=== PATIENT | female | born 1940 | race Caucasian/White ===

== ENCOUNTER 2017-01-01 08:41 | Outpatient (RCR) | payer MEDICARE, BC ==
[2016-10-17 13:10] LABS: BASOPHILS % (AUTO) 0 % (0-10); EOSINOPHILS % (AUTO) 0 % (0-10); LYMPHOCYTES # (AUTO) 2.2 X 10^3 (1.0-4.0); LYMPHOCYTES % (AUTO) 31 % (12-44); MEAN CORPUSCULAR HEMOGLOBIN 25 PG (25-34); MEAN CORPUSCULAR HGB CONC 31 G/DL (32-36); MEAN CORPUSCULAR VOLUME 81 FL (80-99); MEAN PLATELET VOLUME 11.8 FL (7.4-10.4); MONOCYTES # (AUTO) 2.2 X 10^3 (0.0-1.0); MONOCYTES % (AUTO) 31 % (0-12); NEUTROPHILS # (AUTO) 2.7 X 10^3 (1.8-7.8); NEUTROPHILS % (AUTO) 38 % (42-75); PLATELET COUNT 71 10^3/uL (130-400); RED CELL DISTRIBUTION WIDTH 16.3 % (10.0-14.5); WHITE BLOOD COUNT 7.2 10^3/uL (4.3-11.0)
[2016-10-17 13:40] LABS: ALBUMIN 4.2 G/DL (3.2-4.5); BILIRUBIN,TOTAL 0.4 MG/DL (0.1-1.0); CALCIUM 9.2 MG/DL (8.5-10.1); CREATININE SERUM 1.16 MG/DL (0.60-1.30); TOTAL PROTEIN 7.6 G/DL (6.4-8.2)
[2016-11-28 12:11] LABS: BASOPHILS % (AUTO) 0 % (0-10); EOSINOPHILS % (AUTO) 0 % (0-10); LYMPHOCYTES # (AUTO) 2.3 X 10^3 (1.0-4.0); LYMPHOCYTES % (AUTO) 29 % (12-44); MEAN CORPUSCULAR HEMOGLOBIN 25 PG (25-34); MEAN CORPUSCULAR HGB CONC 31 G/DL (32-36); MEAN CORPUSCULAR VOLUME 80 FL (80-99); MEAN PLATELET VOLUME 12.4 FL (7.4-10.4); MONOCYTES # (AUTO) 3.1 X 10^3 (0.0-1.0); MONOCYTES % (AUTO) 38 % (0-12); NEUTROPHILS # (AUTO) 2.7 X 10^3 (1.8-7.8); NEUTROPHILS % (AUTO) 33 % (42-75); PLATELET COUNT 98 10^3/uL (130-400); RED BLOOD COUNT 3.75 10^6/uL (4.35-5.85); RED CELL DISTRIBUTION WIDTH 17.2 % (10.0-14.5)
[2016-11-28 12:43] LABS: ALBUMIN 4.2 G/DL (3.2-4.5); BILIRUBIN,TOTAL 0.5 MG/DL (0.1-1.0); CALCIUM 9.5 MG/DL (8.5-10.1); CREATININE SERUM 1.13 MG/DL (0.60-1.30); POTASSIUM 5.1 MMOL/L (3.6-5.0); TOTAL PROTEIN 7.9 G/DL (6.4-8.2)
[2017-01-01 09:00] LABS: BASOPHILS % (AUTO) 0 % (0-10); EOSINOPHILS % (AUTO) 0 % (0-10); LYMPHOCYTES % (AUTO) 27 % (12-44); MEAN CORPUSCULAR HEMOGLOBIN 25 PG (25-34); MEAN CORPUSCULAR HGB CONC 31 G/DL (32-36); MEAN CORPUSCULAR VOLUME 80 FL (80-99); MEAN PLATELET VOLUME 11.9 FL (7.4-10.4); MONOCYTES % (AUTO) 40 % (0-12); NEUTROPHILS # (AUTO) 2.5 X 10^3 (1.8-7.8); NEUTROPHILS % (AUTO) 33 % (42-75); PLATELET COUNT 84 10^3/uL (130-400); RED BLOOD COUNT 3.61 10^6/uL (4.35-5.85); RED CELL DISTRIBUTION WIDTH 16.6 % (10.0-14.5); WHITE BLOOD COUNT 7.6 10^3/uL (4.3-11.0)
[2017-01-01 09:27] LABS: BILIRUBIN,TOTAL 0.4 MG/DL (0.1-1.0); CALCIUM 9.2 MG/DL (8.5-10.1); CREATININE SERUM 1.27 MG/DL (0.60-1.30); POTASSIUM 4.4 MMOL/L (3.6-5.0); TOTAL PROTEIN 7.6 G/DL (6.4-8.2)
== END 2017-01-15 | disposition home or self-care (01) ==
LOC: ONC 08:41
PROVIDERS: ATTEND Internal Medicine Hematology & Oncology
DX: D46.9 Myelodysplastic syndrome, unspecified (principal); I10 Essential (primary) hypertension; E78.5 Hyperlipidemia, unspecified; Z79.899 Other long term (current) drug therapy
CPT/HCPCS: 36415; 80053; 83615; 85025; 99213

== ENCOUNTER 2017-05-01 13:50 | Outpatient (RCR) | payer MEDICARE, BC ==
[2017-02-12 11:27] LABS: BASOPHILS % (AUTO) 0 % (0-10); EOSINOPHILS % (AUTO) 0 % (0-10); LYMPHOCYTES % (AUTO) 27 % (12-44); MEAN CORPUSCULAR HEMOGLOBIN 25 PG (25-34); MEAN CORPUSCULAR HGB CONC 31 G/DL (32-36); MEAN CORPUSCULAR VOLUME 81 FL (80-99); MEAN PLATELET VOLUME 12.4 FL (7.4-10.4); MONOCYTES % (AUTO) 40 % (0-12); NEUTROPHILS # (AUTO) 2.4 X 10^3 (1.8-7.8); NEUTROPHILS % (AUTO) 33 % (42-75); PLATELET COUNT 86 10^3/uL (130-400); RED BLOOD COUNT 3.64 10^6/uL (4.35-5.85); RED CELL DISTRIBUTION WIDTH 17.7 % (10.0-14.5); WHITE BLOOD COUNT 7.4 10^3/uL (4.3-11.0)
[2017-02-12 12:20] LABS: CALCIUM 9.3 MG/DL (8.5-10.1); CREATININE SERUM 1.08 MG/DL (0.60-1.30); POTASSIUM 4.9 MMOL/L (3.6-5.0)
[2017-04-01 13:23] LABS: BASOPHILS % (AUTO) 0 % (0-10); EOSINOPHILS % (AUTO) 0 % (0-10); LYMPHOCYTES # (AUTO) 1.8 X 10^3 (1.0-4.0); LYMPHOCYTES % (AUTO) 27 % (12-44); MEAN CORPUSCULAR HEMOGLOBIN 25 PG (25-34); MEAN CORPUSCULAR HGB CONC 31 G/DL (32-36); MEAN CORPUSCULAR VOLUME 81 FL (80-99); MEAN PLATELET VOLUME 12.3 FL (7.4-10.4); MONOCYTES # (AUTO) 2.8 X 10^3 (0.0-1.0); MONOCYTES % (AUTO) 41 % (0-12); NEUTROPHILS # (AUTO) 2.2 X 10^3 (1.8-7.8); NEUTROPHILS % (AUTO) 32 % (42-75); PLATELET COUNT 100 10^3/uL (130-400); WHITE BLOOD COUNT 6.8 10^3/uL (4.3-11.0)
[2017-04-01 13:51] LABS: ALBUMIN 3.9 G/DL (3.2-4.5); BILIRUBIN,TOTAL 0.4 MG/DL (0.1-1.0); CALCIUM 9.3 MG/DL (8.5-10.1); CREATININE SERUM 1.38 MG/DL (0.60-1.30); TOTAL PROTEIN 8.1 G/DL (6.4-8.2)
[~2017-05-01 13:50] MED LIST: FERRIC CARBOXYMALTOSE (CANCER) 750 MG in NS (IVPB) CANCER CENTER 250 ML IV SCH
[2017-05-01 14:04] LABS: BASOPHILS % (AUTO) 0 % (0-10); EOSINOPHILS % (AUTO) 0 % (0-10); LYMPHOCYTES % (AUTO) 28 % (12-44); MEAN CORPUSCULAR HEMOGLOBIN 26 PG (25-34); MEAN CORPUSCULAR HGB CONC 30 G/DL (32-36); MEAN CORPUSCULAR VOLUME 85 FL (80-99); MONOCYTES # (AUTO) 3.3 X 10^3 (0.0-1.0); MONOCYTES % (AUTO) 45 % (0-12); NEUTROPHILS % (AUTO) 27 % (42-75); RED CELL DISTRIBUTION WIDTH 19.9 % (10.0-14.5); WHITE BLOOD COUNT 7.2 10^3/uL (4.3-11.0)
[2017-05-01 14:10] LABS: PLATELET COUNT 79 10^3/uL (130-400)
[2017-05-01 14:37] LABS: ALBUMIN 3.9 GM/DL (3.2-4.5); BILIRUBIN,TOTAL 0.3 MG/DL (0.1-1.0); CALCIUM 9.2 MG/DL (8.5-10.1); CREATININE SERUM 1.02 MG/DL (0.60-1.30); POTASSIUM 4.8 MMOL/L (3.6-5.0); TOTAL PROTEIN 7.9 GM/DL (6.4-8.2)
[2017-05-09] MEDS ORDERED: NF-ACI30T PO (08:50)
[2017-05-09] MEDS ORDERED: GABA-488 PO (08:50)
[2017-05-09] MEDS ORDERED: ALPR0.5T PO (08:50)
[2017-05-09] MEDS ORDERED: LEVO100T7 PO (08:50)
[2017-05-09] MEDS ORDERED: LEVO112T55 PO (08:50)
[2017-05-09] MEDS ORDERED: UBID100C44 PO (08:50)
[2017-05-09] MEDS ORDERED: CHOL2000 PO (08:50)
[2017-05-09] MEDS ORDERED: LOSA100T28 PO (08:50)
[2017-05-09] MEDS ORDERED: TRAM50TA2 PO (08:50)
[2017-05-09] MEDS ORDERED: ROSU10TA PO (08:50)
[2017-05-09] MEDS ORDERED: MIRA50TA PO (08:50)
[2017-05-09] MEDS ORDERED: METO-387 PO (08:50)
== END 2017-05-13 | disposition home or self-care (01) ==
LOC: ONC 13:50
PROVIDERS: ATTEND Internal Medicine Hematology & Oncology
DX: C93.10 Chronic myelomonocytic leukemia not having achieved remission (principal); D46.9 Myelodysplastic syndrome, unspecified; D50.9 Iron deficiency anemia, unspecified; K90.9 Intestinal malabsorption, unspecified; D61.818 Other pancytopenia; E11.22 Type 2 diabetes mellitus with diabetic chronic kidney disease; I12.9 Hypertensive chronic kidney disease with stage 1 through stage 4 chronic kidney disease, or unspecified chronic kidney disease; N18.3 Chronic kidney disease, stage 3 (moderate); E78.5 Hyperlipidemia, unspecified; M19.90 Unspecified osteoarthritis, unspecified site; Z79.899 Other long term (current) drug therapy
CPT/HCPCS: 36415; 80048; 80053; 82728; 83540; 83615; 85025; 96365; 99213

== ENCOUNTER → 2017-05-08 | Outpatient (CLI) | payer MEDICARE ==
[~2017-05-08] MED LIST changes: +ALPR0.5T PO; +CHOL2000 PO; -FERRIC CARBOXYMALTOSE (CANCER) 750 MG in NS (IVPB) CANCER CENTER 250 ML IV SCH; +GABA-488 PO; +IOHEXOL 350 MG/ML 100 ML (OMNIPAQUE 350) VIAL IV ONE; +LEVO100T7 PO; +LEVO112T55 PO; +LOSA100T28 PO; +METO-270 PO; +MIRA50TA PO; +NF-ACI30T PO; +NS 100 ML (IVPB) BAG IV ONE; +ROSU10TA PO; +TRAM50TA2 PO; +UBID100C44 PO
--- NOTE | 2017-05-08 15:25 | Diagnostic Imaging Report ---
PROCEDURE: CT head with and without contrast. TECHNIQUE: Multiple contiguous axial images were obtained through the brain before and after the administration of intravenous contrast. 80 mL of Omnipaque-350 is administered intravenously. INDICATION: Non arteritic ischemic optic neuropathy. Loss of vision in the right eye. FINDINGS: The unenhanced phase demonstrates no intracranial hemorrhage. There are periventricular and deep white matter hypodensities suggestive of chronic microvascular ischemic changes. There is no hydrocephalus. No extra-axial fluid collection is seen. Post contrast images demonstrate no enhancing mass. The vascular enhancement of the major central intracranial vessels is grossly unremarkable with atherosclerotic calcifications in the internal carotid artery within the cavernous segment seen on both sides. The orbits, the visualized portions of the paranasal sinuses and the calvarium appear grossly unremarkable. IMPRESSION: No intracranial hemorrhage or enhancing mass. White matter findings are suggestive of chronic microvascular ischemic changes. Report was called to Dr. Kristopher Rodríguez at 3:18 p.m., by lorenzo (for ZELDA). Dictated by: Dictated on workstation # [id number]
== END ==
LOC: RAD 13:28
PROVIDERS: ATTEND Optometrist
DX: H47.011 Ischemic optic neuropathy, right eye (principal)
CPT/HCPCS: 70470

== ENCOUNTER 2017-05-09 08:01 | Day surgery (SDC) | payer MEDICARE, BC ==
[~2017-05-09] VITALS: Ht 162.6 cm; Wt 86.2 kg
--- OUTSIDE RECORDS SUMMARY | 2017-05-09 08:07 | XMS REPORT | Clinical Summary ---
Author Author User, Kwarter Jarrett Calderon DO, ROLOP Address Unknown Phone Allergies, Adverse Reactions, Alerts Allergy Name Reaction Description Start Date Severity Status Provider BACTITRACIN Critical Active Patti Calderon RENETTA-1 Critical Active Pattijakob Calderon PRAVASTATIN Critical Active Pattijakob Calderon AMLODOPINE Critical Active Pattijakob Calderon ZITHROMAX Critical Active Pattijakob Calderon KEFLEX Critical Active Pattijakob Calderon SULFA Critical Active Pattijakob Calderon PENICILLIN Critical Active Patti Calderon Conditions or Problems Problem Name Problem Code Onset Date Status Entry Date Provider Comment Standard Description Annotate HYPOTHYROIDISM, PRIMARY 244.9 Active Patti Calderon Unspecified hypothyroidism HYPERTENSION 401.1 Active Patti Calderon Benign essential hypertension HYPERCHOLESTEROLEMIA 272.0 Active Patti Calderon Pure hypercholesterolemia 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 Patti Calderon Reflex sympathetic dystrophy of other specified site FIBROMYALGIA 729.1 Active Patti Calderon Myalgia and myositis, unspecified KNEE PAIN 719.46 Active Patti Calderon Pain in joint involving lower leg OSTEOARTHRITIS 715.90 Active Patti Calderon Osteoarthrosis, unspecified whether generalized or localized, involving unspecified site MYELODYSPLASTIC SYNDROME, UNSPECIFIED 238.75 Active Patti Calderon Myelodysplastic syndrome, unspecified Medication List Medication Instructions Start Date Stop Date Generic Name NDC Status Provider Patient Instruction COZAAR 50 MG TABS 1 PO DAILY [place] POTASSIUM 80193715795 Active Patti Calderon SYNTHROID 112 MCG TABS 1 po daily LEVOTHYROXINE SODIUM 01511986648 Active Patti Calderon FISH OIL 1000 MG CAPS 1 PO daily OMEGA-3 FATTY ACIDS 77124561119 Active Patti Calderon CRESTOR 10 MG TABS 1 po daily ROSUVASTATIN CALCIUM 37984728692 Active Patti Calderon GABAPENTIN 300 MG CAPS 1 PO TID PRN GABAPENTIN 75151407321 No Longer Active Patti Calderon LASIX 20 MG TABS 1 PO DAILY FUROSEMIDE 40667536827 No Longer Active Patti Calderon TRAMADOL HCL 50 MG TABS 1 tablet every 6 hrs as needed TRAMADOL HCL 73977513587 Active Patti Calderon XANAX 0.5 MG TABS 1/2 TO 1 PO TID PRN ALPRAZOLAM 10739476927 Active Patti Calderon HYDROCHLOROTHIAZIDE 12.5 MG CAPS 1 PO QD HYDROCHLOROTHIAZIDE 96947319132 Active Bridget Arciniega BISOPROLOL FUMARATE 10 MG TABS 1 PO DAILY BISOPROLOL FUMARATE 65042922690 Active Patti Calderon TOPROL XL 25 MG [id number] 1 PO DAILY METOPROLOL SUCCINATE 81185299131 Active Patti Calderon POTASSIUM CHLORIDE ER 10 MEQ CR-TABS 1 PO DAILY POTASSIUM CHLORIDE 06562689311 Active Patti Calderon PROZAC 20 MG CAPS 1 PO DAILY FLUOXETINE HCL 13584531328 Active Patti Calderon ACIPHEX 20 MG TBEC 1 PO DAILY RABEPRAZOLE SODIUM 40755648706 Active Patti Calderon Vital Signs Date Name Value Unit Range Description blood pressure, diastolic - 8462-4 70 mm[Hg] BP silveira blood pressure, systolic - 8480-6 125 mm[Hg] BP sys height E&M - 8302-2 56 [in_us] Bdy height pulse rate E&M - 8867-4 66 /min Heart rate respiratory rate E&M - 9279-1 14 /min Resp rate temperature E&M 98.6 [degF] Body temperature weight E&M - 3141-9 190 [lb_av] Weight Measured Diagnostic Results Date Name Value Unit Range Description Clinical Lists Update: CBC,CMP,FLP,TSH,Free T4,FERRITIN,MICROALBUMIN,HgA1c - Chemistry Estimated Glomerular Filtration Rate (calc) 51 mL/min/1.73m2 glucose, plasma fasting 132 mg/dL albumin, serum 4.3 g/dL alkaline phosphatase, serum 72 U/L urea nitrogen, blood 22 mg/dL calcium, serum 10.0 mg/dL chloride, serum 102 mmol/L cholesterol, serum 151 mg/dL carbon dioxide, venous blood 25 mmol/L very low density lipoproteins 14 mg/dL sodium, serum 137 mmol/L triglyceride, serum, fasting 69 mg/dL bilirubin, serum, total 0.7 mg/dL alanine aminotransferase (SGPT), serum 12 U/L aspartate aminotransferase (SGOT), serum 24 U/L protein, total, serum 8.3 g/dL potassium, serum 3.2 mmol/L LDL cholesterol, serum 251 mg/dL thyroid stimulating hormone, serum 0.15 u[iU]/mL hemoglobin A1C, blood, as % of total hemoglobin 6.4 % HDL cholesterol, serum 54 mg/dL thyroxine, serum, free 1.50 ng/dL ferritin, serum 37 ng/mL creatinine, serum 1.05 mg/dL Clinical Lists Update: CBC,CMP,FLP,TSH,Free T4,FERRITIN,MICROALBUMIN,HgA1c - Hematology hemoglobin, blood 11.0 g/dL platelet count 83 10*3/mm3 erythrocyte (RBC) count 3.96 10*6/mm3 leukocyte count, blood 7.1 10*3/mm3 mean corpuscular volume, RBC 84 fL red blood cell distribution width 13.6 % hematocrit, blood 33 % Clinical Lists Update: CBC,CMP,FLP,TSH,Free T4,FERRITIN,MICROALBUMIN,HgA1c - Urinalysis microalbumin, urine, semiquantitative 18.5 mg/dL
--- OUTSIDE RECORDS SUMMARY | 2017-05-09 08:07 | XMS REPORT | Clinical Summary ---
Author Author User, [employer] Jarrett Calderon DO, ROLOP Address Unknown Phone [...] Instructions Start Date Stop Date Generic Name ND Status Provider Patient Instruction OMEPRAZOLE 20 MG CPDR 1 PO daily OMEPRAZOLE 46103398924 Active Patti Calderon SYNTHROID 100 MCG TABS 1 PO DAILY ON FRIDAY AND Friday LEVOTHYROXINE SODIUM 67337758646 Active Rocio Courtney SYNTHROID 112 MCG TABS 1 PO DAILY ON FRIDAY, FRIDAY, FRIDAY, FRIDAY AND Friday LEVOTHYROXINE SODIUM 46668386959 Active Patti Calderon COZAAR 50 MG TABS 1 PO DAILY [place] POTASSIUM 55195026560 Active Patti Calderon FISH OIL 1000 MG CAPS 1 PO daily OMEGA-3 FATTY ACIDS 04007941363 Active Patti Calderon CRESTOR 10 MG TABS 1 po daily ROSUVASTATIN CALCIUM 10713155798 Active Patti Calderon GABAPENTIN 300 MG CAPS 1 PO TID PRN GABAPENTIN 37352413784 No Longer Active Patti Calderon LASIX 20 MG TABS 1 PO DAILY FUROSEMIDE 78305063757 No Longer Active Patti Calderon TRAMADOL HCL 50 MG TABS 1 tablet every 6 hrs as needed TRAMADOL HCL 18583294957 Active Patti Calderon XANAX 0.5 MG TABS 1/2 TO 1 PO TID PRN ALPRAZOLAM 22673989058 Active Patti Calderon HYDROCHLOROTHIAZIDE 12.5 MG CAPS 1 PO QD HYDROCHLOROTHIAZIDE 00616923071 Active Bridget Arciniega BISOPROLOL FUMARATE 10 MG TABS 1 PO DAILY BISOPROLOL FUMARATE 92410223172 Active Patti Calderon TOPROL XL 25 MG [id number] 1 PO DAILY METOPROLOL SUCCINATE 99115643036 Active Patti Calderon POTASSIUM CHLORIDE ER 10 MEQ CR-TABS 1 PO DAILY POTASSIUM CHLORIDE 88033884384 Active Bridget Arciniega PROZAC 20 MG CAPS 1 PO DAILY FLUOXETINE HCL 18801606452 Active Bridget Arciniega ACIPHEX 20 MG TBEC 1 PO DAILY RABEPRAZOLE SODIUM 65407396470 No Longer Active Bridget Arciniega Vital Signs Date Name Value Unit Range [...] - Urinalysis microalbumin, urine, semiquantitative 18.5 mg/dL Procedures Code Procedure Name Date Entry Date Standard Description CPT-G0439 Medicare Annual Wellness Visit 20:35:50 CDT
--- OUTSIDE RECORDS SUMMARY | 2017-05-09 08:08 | XMS REPORT | Clinical Summary ---
Author Author User, [employer] Jarrett Calderon DO, ROLOP Address Unknown Phone Allergies, Adverse Reactions, Alerts Allergy Name Reaction Description Start Date Severity Status Provider BACTITRACIN Critical Active Patti Calderon RENETTA-1 Critical Active Pattijakob Calderon PRAVASTATIN Critical Active Pattijakob Calderon AMLODOPINE Critical Active Pattijakob Calderon ZITHROMAX Critical Active Pattijakob Calderon KEFLEX Critical Active Pattijakob Calderon SULFA Critical Active Pattijakbo Calderon PENICILLIN Critical Active Patti Calderon Conditions [...] Generic Name ND Status Provider Patient Instruction SYNTHROID 100 MCG TABS 1 PO DAILY ON FRIDAY AND Friday LEVOTHYROXINE SODIUM 92975838773 Active Rocio Courtney SYNTHROID 112 MCG TABS 1 PO DAILY ON FRIDAY, FRIDAY, FRIDAY, FRIDAY AND Friday LEVOTHYROXINE SODIUM 94346815557 Active Patti Calderon COZAAR 50 MG TABS 1 PO DAILY [place]AN POTASSIUM 76221415309 Active Patti Calderon FISH OIL 1000 MG CAPS 1 PO daily OMEGA-3 FATTY ACIDS 01713432317 Active Patti Calderon CRESTOR 10 MG TABS 1 po daily ROSUVASTATIN CALCIUM 05309090517 Active Patti Calderon GABAPENTIN 300 MG CAPS 1 PO TID PRN GABAPENTIN 81164963853 No Longer Active Patti Calderon LASIX 20 MG TABS 1 PO DAILY FUROSEMIDE 87488696449 No Longer Active Patti Calderon TRAMADOL HCL 50 MG TABS 1 tablet every 6 hrs as needed TRAMADOL HCL 27640772085 Active Patti Calderon XANAX 0.5 MG TABS 1/2 TO 1 PO TID PRN ALPRAZOLAM 02372006670 Active Patti Calderon HYDROCHLOROTHIAZIDE 12.5 MG CAPS 1 PO QD HYDROCHLOROTHIAZIDE 76810885378 Active Bridget Arciniega BISOPROLOL FUMARATE 10 MG TABS 1 PO DAILY BISOPROLOL FUMARATE 53116210917 Active Patti Calderon TOPROL XL 25 MG [id number] 1 PO DAILY METOPROLOL SUCCINATE 74135395585 Active Patti Calderon POTASSIUM CHLORIDE ER 10 MEQ CR-TABS 1 PO DAILY POTASSIUM CHLORIDE 54359084246 Active Patti Calderon PROZAC 20 MG CAPS 1 PO DAILY FLUOXETINE HCL 93693939266 Active Patti Calderon ACIPHEX 20 MG TBEC 1 PO DAILY RABEPRAZOLE SODIUM 72897571646 Active Patti Kristin Calderon Vital Signs Date Name Value Unit [...]
--- OUTSIDE RECORDS SUMMARY | 2017-05-09 08:08 | XMS REPORT | Clinical Summary ---
Author Author User, Ludia Jarrett Calderon DO, ROLOP Address Unknown Phone Allergies, Adverse Reactions, Alerts Allergy Name Reaction Description Start Date Severity Status Provider BACTITRACIN Critical Active Patti Calderon RENETTA-1 Critical Active Pattijakob Calderon PRAVASTATIN Critical Active Pattijakob Claderon AMLODOPINE Critical Active Pattijakob Calderon ZITHROMAX Critical [...] Generic Name NDC Status Provider Patient Instruction SYNTHROID 112 MCG TABS 1 po daily LEVOTHYROXINE SODIUM 30723954224 Active Patti Calderon FISH OIL 1000 MG CAPS 1 PO daily OMEGA-3 FATTY ACIDS 55321057287 Active Patti Calderon CRESTOR 10 MG TABS 1 po daily ROSUVASTATIN CALCIUM 58224815914 Active Patti Calderon GABAPENTIN 300 MG CAPS 1 PO TID PRN GABAPENTIN 27029101959 No Longer Active Patti Calderon LASIX 20 MG TABS 1 PO DAILY FUROSEMIDE 19278249483 No Longer Active Patti Calderon TRAMADOL HCL 50 MG TABS 1 tablet every 6 hrs as needed TRAMADOL HCL 02837124735 Active Patti Calderon XANAX 0.5 MG TABS 1/2 TO 1 PO TID PRN ALPRAZOLAM 34905007115 Active Patti Calderon HYDROCHLOROTHIAZIDE 12.5 MG CAPS 1 PO QD HYDROCHLOROTHIAZIDE 07934378630 Active Bridget Arciniega COZAAR 100 MG TABS 1 PO DAILY [place] POTASSIUM 67220973309 Active Bridget Arciniega BISOPROLOL FUMARATE 10 MG TABS 1 PO DAILY BISOPROLOL FUMARATE 08236688518 Active Patti Calderon TOPROL XL 25 MG [id number] 1 PO DAILY METOPROLOL SUCCINATE 43368841158 Active Patti Calderon POTASSIUM CHLORIDE ER 10 MEQ CR-TABS 1 PO DAILY POTASSIUM CHLORIDE 37929049592 Active Patti Calderon PROZAC 20 MG CAPS 1 PO DAILY FLUOXETINE HCL 51534455199 Active Patti Calderon ACIPHEX 20 MG TBEC 1 PO DAILY RABEPRAZOLE SODIUM 00173216422 Active Patti Calderon Vital Signs Date Name [...]
--- OUTSIDE RECORDS SUMMARY | 2017-05-09 08:09 | XMS REPORT | Continuity of Care Document ---
Author Author [facility] Organization [facility] Address Unknown Phone Unavailable Allergies Active Description Code Type Severity Reaction Onset Reported/Identified Relationship to Patient Clinical Status Yes No Known Drug Allergies [id number] Drug Allergy Unknown N/ A 04/10/2017 Medications Problems Date Dx Coded Attending Type Code Diagnosis Diagnosed By 05/30/2015 STEINER DO, DEONNA Ot V76.12 05/30/2015 STEINER DO, DEONNA Ot V76.12 06/14/2015 STEINER DO, DEONNA Ot V76.12 06/15/2015 STEINER DO, DEONNA Ot 238.75 06/15/2015 STEINER DO, DEONNA Ot 244.9 06/15/2015 STEINER DO, DEONNA Ot 272.0 06/15/2015 STEINER DO, DEONNA Ot 337.29 06/15/2015 STEINER DO, DEONNA Ot 401.1 06/15/2015 STEINER DO, DEONNA Ot 715.90 06/15/2015 STEINER DO, DEONNA Ot 729.1 06/15/2015 STEINER DO, DEONNA Ot 790.29 07/26/2015 OLY, BOBAN N Ot 238.75 MYELODYSPLASTIC SYNDROME, UNSPECIFIED 07/26/2015 OLY, BOBAN N Ot 244.9 HYPOTHYROIDISM NOS 07/26/2015 OLY, BOBAN N Ot 272.0 PURE HYPERCHOLESTEROLEM 07/26/2015 OLY, BOBAN N Ot 285.9 ANEMIA NOS 07/26/2015 OLY, BOBAN N Ot 287.5 THROMBOCYTOPENIA NOS 07/26/2015 OLY, BOBAN N Ot 354.0 CARPAL TUNNEL SYNDROME 07/26/2015 OLY, BOBAN N Ot 403.90 HYPTNSV CHR KID DIS, UNSPEC, W CHR KD ST 07/26/2015 OLY, BOBAN N Ot 585.3 CHRONIC KIDNEY DISEASE, STAGE III (MODER 07/26/2015 OLY, BOBAN N Ot 715.96 OSTEOARTHROS NOS-L/LEG 07/26/2015 ELDER ALDRIDGE N Ot V10.42 HX-UTERUS MALIGNANCY NEC 07/26/2015 ELDER ALDRIDGE N Ot V58.69 OTH MED,LT,CURRENT USE 07/26/2015 ELDER ALDRIDGE N Ot V88.01 ACQUIRED ABSENCE OF BOTH CERVIX AND UTER 09/13/2015 STEINER DO, DEONNA Ot V76.12 09/13/2015 STEINER DO, DEONNA Ot 238.75 09/13/2015 STEINER DO, DEONNA Ot 244.9 09/13/2015 STEINER DO, DEONNA Ot 272.0 09/13/2015 STEINER DO, DEONNA Ot 337.29 09/13/2015 STEINER DO, DEONNA Ot 401.1 09/13/2015 STEINER DO, DEONNA Ot 715.90 09/13/2015 STEINER DO, DEONNA Ot 729.1 09/13/2015 STEINER DO, DEONNA Ot 790.29 09/13/2015 ELDER ALDRIDGE N Ot 238.75 09/13/2015 ELDER ALDRIDGE N Ot 244.9 09/13/2015 OLYELDER VILLAGRAN N Ot 272.0 09/13/2015 OLYELDER VILLAGRAN N Ot 285.9 09/13/2015 OLY, ELDER N Ot 287.5 09/13/2015 OLY, ELDER N Ot 354.0 09/13/2015 OLY, BOBUTLIO N Ot 403.90 09/13/2015 OLYELDER VILLAGRAN N Ot 585.3 09/13/2015 OLYELDER VILLAGRAN N Ot 715.96 09/13/2015 ELDER ALDRIDGE N Ot V10.42 09/13/2015 OLYELDER VILLAGRAN N Ot V58.69 09/13/2015 ELDER ALDRIDGE N Ot V88.01 10/04/2015 STEINER DO, DEONNA Ot E03.9 10/04/2015 STEINER DO, DEONNA Ot E78.0 10/04/2015 STEINER DO, DEONNA Ot Z00.00 10/26/2015 [place] HURST HAM SMOKER Ot D46.9 10/26/2015 [place] HURST HAM SMOKER Ot E78.5 10/26/2015 OK HURST HAM SMOKER Ot I10 10/26/2015 [place] HURST HAM SMOKER Ot Z79.899 10/26/2015 STEINER DO, DEONNA Ot E03.9 10/26/2015 STEINER DO, DEONNA Ot E78.0 10/26/2015 STEINER DO, DEONNA Ot E78.1 10/26/2015 STEINER DO, DEONNA Ot I10 10/26/2015 STEINER DO, DEONNA Ot Z00.00 12/28/2015 OLY, BOBAN N Ot 238.75 12/28/2015 OLY, BOBAN N Ot 244.9 12/28/2015 OLY, BOBAN N Ot 272.0 12/28/2015 OLY, BOBAN N Ot 285.9 12/28/2015 OLY, BOBAN N Ot 287.5 12/28/2015 OLY, BOBAN N Ot 354.0 12/28/2015 OLY, BOBAN N Ot 403.90 12/28/2015 OLY, BOBAN N Ot 585.3 12/28/2015 OLY, BOBAN N Ot 715.96 12/28/2015 OLY, BOBAN N Ot V10.42 12/28/2015 OLY, BOBAN N Ot V58.69 12/28/2015 OLY, BOBAN N Ot V88.01 01/05/2016 OLY, BOBAN N Ot 238.75 01/05/2016 OLY, BOBAN N Ot 244.9 01/05/2016 OLY, BOBAN N Ot 272.0 01/05/2016 OLY, BOBAN N Ot 285.9 01/05/2016 OLY, BOBAN N Ot 287.5 01/05/2016 OLY, BOBAN N Ot 354.0 01/05/2016 OLY, BOBAN N Ot 403.90 01/05/2016 OLY, BOBAN N Ot 585.3 01/05/2016 OLY, BOBAN N Ot 715.96 01/05/2016 OLY, BOBAN N Ot V10.42 01/05/2016 OLY, BOBAN N Ot V58.69 01/05/2016 OLY, BOBAN N Ot V88.01 01/16/2016 STEINER DO, DEONNA Ot E03.9 01/16/2016 STEINER DO, DEONNA Ot E78.0 01/16/2016 STEINER DO, DEONNA Ot E78.1 01/16/2016 STEINER DO, DEONNA Ot Z00.00 02/06/2016 STEINER DO, DEONNA Ot E03.9 02/06/2016 STEINER DO, DEONNA Ot E78.0 02/06/2016 STEINER DO, DEONNA Ot E78.1 02/06/2016 STEINER DO, DEONNA Ot Z00.00 02/16/2016 ELDER ALDRIDGE N Ot D46.9 MYELODYSPLASTIC SYNDROME, UNSPECIFIED 02/16/2016 OLY, BOBTULIO N Ot E78.5 HYPERLIPIDEMIA, UNSPECIFIED 02/16/2016 OLY, BOBAN N Ot I10 ESSENTIAL (PRIMARY) HYPERTENSION 02/16/2016 OLY, BOBTULIO N Ot Z79.899 OTHER FIBER DESIGN ENGINEER (CURRENT) DRUG THERAPY 04/03/2016 ELDER ALDRIDGE N Ot D46.9 MYELODYSPLASTIC SYNDROME, UNSPECIFIED 04/03/2016 OLY, BOBTULIO N Ot E78.5 HYPERLIPIDEMIA, UNSPECIFIED 04/03/2016 OLY, BOBTULIO N Ot I10 ESSENTIAL (PRIMARY) HYPERTENSION 04/03/2016 ELDER ALDRIDGE N Ot Z79.899 OTHER FIBER DESIGN ENGINEER (CURRENT) DRUG THERAPY 04/12/2016 OK HURST HAM SMOKER Ot D46.9 MYELODYSPLASTIC SYNDROME, UNSPECIFIED 04/12/2016 OK HURST HAM SMOKER Ot E78.5 HYPERLIPIDEMIA, UNSPECIFIED 04/12/2016 OK HURST HAM SMOKER Ot I10 ESSENTIAL (PRIMARY) HYPERTENSION 04/12/2016 OK HURST HAM SMOKER Ot Z79.899 OTHER LONG-TERM (CURRENT) DRUG THERAPY 04/12/2016 OK HURST HAM SMOKER Ot D46.9 MYELODYSPLASTIC SYNDROME, UNSPECIFIED 04/12/2016 OK HURST HAM SMOKER Ot E78.5 HYPERLIPIDEMIA, UNSPECIFIED 04/12/2016 OK HURST HAM SMOKER Ot I10 ESSENTIAL (PRIMARY) HYPERTENSION 04/12/2016 OK HURST HAM SMOKER Ot Z79.899 OTHER FIBER DESIGN ENGINEER (CURRENT) DRUG THERAPY 05/01/2016 OK HURST HAM SMOKER Ot D46.9 MYELODYSPLASTIC SYNDROME, UNSPECIFIED 05/01/2016 OK HURST HAM SMOKER Ot E78.5 HYPERLIPIDEMIA, UNSPECIFIED 05/01/2016 OK HURST HAM SMOKER Ot I10 ESSENTIAL (PRIMARY) HYPERTENSION 05/01/2016 OK HURST HAM SMOKER Ot Z79.899 OTHER LONG-TERM (CURRENT) DRUG THERAPY 06/18/2016 DEONNA STEINER DO Ot Z12.31 ENCNTR SCREEN MAMMOGRAM FOR MALIGNANT NE 06/19/2016 MATA STEINER DOI Ot Z12.31 ENCNTR SCREEN MAMMOGRAM FOR MALIGNANT NE 06/27/2016 DEONNA STEINER DO Ot V76.12 OTH SCREEN MAMMO-MALIGN NEOPLASM OF LILI 06/27/2016 MATA STEINER DOI Ot 238.75 MYELODYSPLASTIC SYNDROME, UNSPECIFIED 06/27/2016 MATA STEINER DOI Ot 244.9 HYPOTHYROIDISM NOS 06/27/2016 MATA STEINER DOI Ot 272.0 PURE HYPERCHOLESTEROLEM 06/27/2016 OBDULIA RODRIGUEZ DEONNA Ot 337.29 REFLEX SYMPATHETIC DYSTROPHY, SITE NEC 06/27/2016 MATA STEINER DOI Ot 401.1 BENIGN HYPERTENSION 06/27/2016 MATA STEINER DOI Ot 715.90 OSTEOARTHROS NOS-UNSPEC 06/27/2016 OBDULIA RODRIGUEZ DEONNA Ot 729.1 MYALGIA AND MYOSITIS NOS 06/27/2016 MATA STEINER DOI Ot 790.29 OTHER ABNORMAL GLUCOSE 06/27/2016 MATA STEINER DOI Ot E03.9 HYPOTHYROIDISM, UNSPECIFIED 06/27/2016 MATA STEINER DOI Ot E78.0 PURE HYPERCHOLESTEROLEMIA 06/27/2016 MATA STEINER DOI Ot Z00.00 ENCNTR FOR GENERAL ADULT MEDICAL EXAM W/ 06/27/2016 OK HURST HAM SMOKER Ot D46.9 MYELODYSPLASTIC SYNDROME, UNSPECIFIED 06/27/2016 OK HURST HAM SMOKER Ot E78.5 HYPERLIPIDEMIA, UNSPECIFIED 06/27/2016 OK HURST HAM SMOKER Ot I10 ESSENTIAL (PRIMARY) HYPERTENSION 06/27/2016 OK HURST HAM SMOKER Ot Z79.899 OTHER LONG-TERM (CURRENT) DRUG THERAPY 06/27/2016 MATA STEINER DOI Ot E03.9 HYPOTHYROIDISM, UNSPECIFIED 06/27/2016 MATA STEINER DOI Ot E78.0 PURE HYPERCHOLESTEROLEMIA 06/27/2016 MATA STEINER DOI Ot E78.1 PURE HYPERGLYCERIDEMIA 06/27/2016 STEINER DO, DEONNA Ot I10 ESSENTIAL (PRIMARY) HYPERTENSION 06/27/2016 STEINER DO, DEONNA Ot Z00.00 ENCNTR FOR GENERAL ADULT MEDICAL EXAM W06/27/2016 STEINER DO DEONNA Ot E03.9 HYPOTHYROIDISM, UNSPECIFIED 06/27/2016 STEINER DO, DEONNA Ot E78.0 PURE HYPERCHOLESTEROLEMIA 06/27/2016 STEINER DO, DEONNA Ot E78.1 PURE HYPERGLYCERIDEMIA 06/27/2016 STEINER DO, DEONNA Ot Z00.00 ENCNTR FOR GENERAL ADULT MEDICAL EXAM W06/27/2016 OK HURST HAM SMOKER Ot D46.9 MYELODYSPLASTIC SYNDROME, UNSPECIFIED 06/27/2016 OK HURST HAM SMOKER Ot E78.5 HYPERLIPIDEMIA, UNSPECIFIED 06/27/2016 OK HURST HAM SMOKER Ot I10 ESSENTIAL (PRIMARY) HYPERTENSION 06/27/2016 OK HURST HAM SMOKER Ot Z79.899 OTHER FIBER DESIGN ENGINEER (CURRENT) DRUG THERAPY 06/27/2016 OLY BOBAN N Ot D46.9 MYELODYSPLASTIC SYNDROME, UNSPECIFIED 06/27/2016 OLY, BOBAN N Ot E78.5 HYPERLIPIDEMIA, UNSPECIFIED 06/27/2016 OLY, BOBAN N Ot I10 ESSENTIAL (PRIMARY) HYPERTENSION 06/27/2016 OLY, BOBAN N Ot Z79.899 OTHER FIBER DESIGN ENGINEER (CURRENT) DRUG THERAPY 06/27/2016 OBDULIA RODRIGUEZ DEONNA Ot Z12.31 ENCNTR SCREEN MAMMOGRAM FOR MALIGNANT NE 07/10/2016 OLY BOBAN N Ot D46.9 MYELODYSPLASTIC SYNDROME, UNSPECIFIED 07/10/2016 OLY, BOBAN N Ot E78.5 HYPERLIPIDEMIA, UNSPECIFIED 07/10/2016 OLY, BOBAN N Ot I10 ESSENTIAL (PRIMARY) HYPERTENSION 07/10/2016 OLY, BOBAN N Ot Z79.899 OTHER LONG-TERM (CURRENT) DRUG THERAPY 07/12/2016 STEINER DO DEONNA Ot Z12.31 ENCNTR SCREEN MAMMOGRAM FOR MALIGNANT NE 07/18/2016 OLY, BOBAN N Ot D46.9 MYELODYSPLASTIC SYNDROME, UNSPECIFIED 07/18/2016 OLY, BOBAN N Ot E78.5 HYPERLIPIDEMIA, UNSPECIFIED 07/18/2016 OLY, BOBAN N Ot I10 ESSENTIAL (PRIMARY) HYPERTENSION 07/18/2016 OLY, BOBAN N Ot Z79.899 OTHER FIBER DESIGN ENGINEER (CURRENT) DRUG THERAPY 08/22/2016 OLY, BOBAN N Ot D46.9 MYELODYSPLASTIC SYNDROME, UNSPECIFIED 08/22/2016 OLY, BOBAN N Ot E78.5 HYPERLIPIDEMIA, UNSPECIFIED 08/22/2016 OLY, BOBAN N Ot I10 ESSENTIAL (PRIMARY) HYPERTENSION 08/22/2016 OLY, BOBAN N Ot Z79.899 OTHER LONG-TERM (CURRENT) DRUG THERAPY 10/15/2016 OLY, BOBAN N Ot D46.9 MYELODYSPLASTIC SYNDROME, UNSPECIFIED 10/15/2016 OLY, BOBAN N Ot E78.5 HYPERLIPIDEMIA, UNSPECIFIED 10/15/2016 OLY, BOBAN N Ot I10 ESSENTIAL (PRIMARY) HYPERTENSION 10/15/2016 OLY, BOBAN N Ot Z79.899 OTHER FIBER DESIGN ENGINEER (CURRENT) DRUG THERAPY 10/16/2016 OLY, BOBAN N Ot D46.9 MYELODYSPLASTIC SYNDROME, UNSPECIFIED 10/16/2016 OLY, BOBAN N Ot E78.5 HYPERLIPIDEMIA, UNSPECIFIED 10/16/2016 OLY, BOBAN N Ot I10 ESSENTIAL (PRIMARY) HYPERTENSION 10/16/2016 OLY, BOBAN N Ot Z79.899 OTHER LONG-TERM (CURRENT) DRUG THERAPY 10/18/2016 OLY, BOBAN N Ot D46.9 MYELODYSPLASTIC SYNDROME, UNSPECIFIED 10/18/2016 OLY, BOBAN N Ot E78.5 HYPERLIPIDEMIA, UNSPECIFIED 10/18/2016 OLY, BOBAN N Ot I10 ESSENTIAL (PRIMARY) HYPERTENSION 10/18/2016 OLY, BOBAN N Ot Z79.899 OTHER LONG-TERM (CURRENT) DRUG THERAPY 11/19/2016 OLY, BOBAN N Ot D46.9 MYELODYSPLASTIC SYNDROME, UNSPECIFIED 11/19/2016 OLY, BOBAN N Ot E78.5 HYPERLIPIDEMIA, UNSPECIFIED 11/19/2016 OLY, BOBAN N Ot I10 ESSENTIAL (PRIMARY) HYPERTENSION 11/19/2016 OLY, BOBAN N Ot Z79.899 OTHER LONG-TERM (CURRENT) DRUG THERAPY 01/15/2017 OLY, BOBAN N Ot D46.9 MYELODYSPLASTIC SYNDROME, UNSPECIFIED 01/15/2017 OLY, BOBAN N Ot E78.5 HYPERLIPIDEMIA, UNSPECIFIED 01/15/2017 OLY, BOBAN N Ot I10 ESSENTIAL (PRIMARY) HYPERTENSION 01/15/2017 OLY, BOBAN N Ot Z79.899 OTHER FIBER DESIGN ENGINEER (CURRENT) DRUG THERAPY 01/16/2017 OLY, BOBAN N Ot D46.9 MYELODYSPLASTIC SYNDROME, UNSPECIFIED 01/16/2017 OLY, BOBAN N Ot E78.5 HYPERLIPIDEMIA, UNSPECIFIED 01/16/2017 OLY, BOBAN N Ot I10 ESSENTIAL (PRIMARY) HYPERTENSION 01/16/2017 OLY, BOBAN N Ot Z79.899 OTHER FIBER DESIGN ENGINEER (CURRENT) DRUG THERAPY 02/13/2017 OLY, BOBAN N Ot D46.9 MYELODYSPLASTIC SYNDROME, UNSPECIFIED 02/13/2017 OLY, BOBAN N Ot E78.5 HYPERLIPIDEMIA, UNSPECIFIED 02/13/2017 OLY, BOBAN N Ot I10 ESSENTIAL (PRIMARY) HYPERTENSION 02/13/2017 OLY, BOBAN N Ot Z79.899 OTHER FIBER DESIGN ENGINEER (CURRENT) DRUG THERAPY 03/19/2017 OLY, BOBAN N Ot D46.9 MYELODYSPLASTIC SYNDROME, UNSPECIFIED 03/19/2017 OLY, BOBAN N Ot E78.5 HYPERLIPIDEMIA, UNSPECIFIED 03/19/2017 OLY, BOBAN N Ot I10 ESSENTIAL (PRIMARY) HYPERTENSION 03/19/2017 OLY, BOBAN N Ot Z79.899 OTHER LONG-TERM (CURRENT) DRUG THERAPY 05/02/2017 OLY, BOBAN N Ot D46.9 MYELODYSPLASTIC SYNDROME, UNSPECIFIED 05/02/2017 OLY, BOBAN N Ot E78.5 HYPERLIPIDEMIA, UNSPECIFIED 05/02/2017 OLY, BOBAN N Ot I10 ESSENTIAL (PRIMARY) HYPERTENSION 05/02/2017 OLY, BOBAN N Ot Z79.899 OTHER LONG-TERM (CURRENT) DRUG THERAPY Procedures Results Encounters ACCT No. Visit Date/Time Discharge Status Pt. Type Provider Facility Loc./Unit Complaint [id number] 01/01/2017 08:41:00 2016 00:01:00 DIS Outpatient ELDER ALDRIDGE N [facility] [id number] 07/17/2016 10:44:00 2015 00:01:00 DIS Outpatient ELDER ALDRIDGE N [facility] ONC [id number] 01/04/2016 13:05:00 2015 00:01:00 DIS Outpatient ELDER ALDRIDGE [facility] ONC [id number] 09/13/2015 09:14:00 2014 23:59:59 CLS Outpatient STEINER DO DEONNA [facility] LAB HYPOTHYROIDISM,HYPERGLYCERIDEMIA,MEDICAL EXAM [id number] 06/29/2015 14:03:00 2014 00:01:00 DIS Outpatient ELDER ALDRIDGE [facility] ONC [id number] 05/25/2015 10:08:00 2014 23:59:59 CLS Outpatient STEINER DO DEONNA [facility] LAB MYELODYSPLACTIC SYNDROME [id number] 05/24/2015 14:53:00 2014 23:59:59 CLS Outpatient STEINER DO DEONNA [facility] RAD SCREENING [id number] 05/01/2017 13:50:00 ACT Outpatient ELDER ALDRIDGE [facility] ONC [id number] 06/18/2016 11:21:00 ACT Outpatient STEINER DO DEONNA [facility] RAD SCREENING BREAST CA [id number] 04/11/2016 13:25:00 ACT Outpatient [place] HURSTP [facility] ONC [id number] 01/15/2016 10:16:00 ACT Outpatient STEINER DO DEONNA [facility] LAB MEDICAL EXAMINATION, HYPERCHOLESTEROLEMIA [id number] 10/05/2015 13:10:00 ACT Outpatient STEINER DO, DEONNA [facility] LAB [id number] 10/05/2015 13:08:00 ACT Outpatient [place] HURST HAM SMOKER [facility] ONC
--- OUTSIDE RECORDS SUMMARY | 2017-05-09 08:09 | XMS REPORT | Clinical Summary ---
Author Author User, Actiance Jarrett Calderon DO, ROLOP Address Unknown Phone [...] DAILY ON FRIDAY AND Friday LEVOTHYROXINE SODIUM 56007864876 Active Rocio Courtney SYNTHROID 112 MCG TABS 1 PO DAILY ON FRIDAY, FRIDAY, FRIDAY, FRIDAY AND Friday LEVOTHYROXINE SODIUM 29290847357 Active Patti Calderon COZAAR 50 MG TABS 1 PO DAILY LOSARTAN POTASSIUM 30306110749 Active Patti Calderon FISH OIL 1000 MG CAPS 1 PO daily OMEGA-3 FATTY ACIDS 33399578135 Active Patti Calderon CRESTOR 10 MG TABS 1 po daily ROSUVASTATIN CALCIUM 37749678873 Active Patti Calderon GABAPENTIN 300 MG CAPS 1 PO TID PRN GABAPENTIN 51684995447 No Longer Active Patti Calderon LASIX 20 MG TABS 1 PO DAILY FUROSEMIDE 37031138683 No Longer Active Patti Calderon TRAMADOL HCL 50 MG TABS 1 tablet every 6 hrs as needed TRAMADOL HCL 21016479528 Active Patti Calderon XANAX 0.5 MG TABS 1/2 TO 1 PO TID PRN ALPRAZOLAM 41024688061 Active Patti Calderon HYDROCHLOROTHIAZIDE 12.5 MG CAPS 1 PO QD HYDROCHLOROTHIAZIDE 79519418742 Active Bridget Arciniega BISOPROLOL FUMARATE 10 MG TABS 1 PO DAILY BISOPROLOL FUMARATE 42544350928 Active Patti Calderon TOPROL XL 25 MG AU06S-DQR 1 PO DAILY METOPROLOL SUCCINATE 32191169011 Active Patti Calderon POTASSIUM CHLORIDE ER 10 MEQ CR-TABS 1 PO DAILY POTASSIUM CHLORIDE 90248684278 Active Patti Calderon PROZAC 20 MG CAPS 1 PO DAILY FLUOXETINE HCL 40056575201 Active Patti Calderon ACIPHEX 20 MG TBEC 1 PO DAILY RABEPRAZOLE SODIUM 36013757730 Active Patti Kristin Calderon Vital Signs Date [...]
[2017-05-09] MEDS ORDERED: ceFAZolin 1 GM/NS 50 ML IVPB IV ONE ×2 (08:30)
[2017-05-09] MEDS ORDERED: CATHETER FLUSH 10 ML SYR IV PRN (08:30)
[2017-05-09] MEDS ORDERED: ROSU10TA PO (08:50)
[2017-05-09] MEDS ORDERED: CHOL2000 PO (08:50)
[2017-05-09] MEDS ORDERED: NF-ACI30T PO (08:50)
[2017-05-09] MEDS ORDERED: METO-270 PO (08:50)
[2017-05-09] MEDS ORDERED: GABA-488 PO (08:50)
[2017-05-09] MEDS ORDERED: ALPR0.5T PO (08:50)
[2017-05-09] MEDS ORDERED: LEVO100T7 PO (08:50)
[2017-05-09] MEDS ORDERED: MIRA50TA PO (08:50)
[2017-05-09] MEDS ORDERED: UBID100C44 PO (08:50)
[2017-05-09] MEDS ORDERED: LOSA100T28 PO (08:50)
[2017-05-09] MEDS ORDERED: LEVO112T55 PO (08:50)
[2017-05-09] MEDS ORDERED: TRAM50TA2 PO (08:50)
[2017-05-09] MEDS: LACTATED RINGERS 1,000 ML IV PRN ×2 (09:30→12:26)
[2017-05-09] MEDS ORDERED: LIDOCAINE 1% INJ 20 ML (XYLOCAINE) VIAL ONE (10:16)
--- NOTE | 2017-05-09 10:20 | HISTORY AND PHYSICAL ---
DATE OF ADMISSION: 05/09/2017 ATTENDING PRIMARY CARE PHYSICIAN: Dr. Calderon DICTATING PHYSICIAN: Dr. Newsome Ms. Andie Devi is a 76-year-old female with history of right-sided eye disruption as well as papilledema. She was worked up and found to have an elevated erythrocyte sedimentation rate. This may be consistent with temporal arteritis or a giant cell arteritis. She also has a history of severe degenerative joint disease and osteoporosis and is scheduled to have a total knee replacement at [facility] in approximately one week. This issue needs to be ruled out and addressed before surgery. PAST MEDICAL HISTORY: 1. Diabetes. 2. Hypertension. 3. Hypercholesterolemia. 4. Osteoporosis. 5. Degenerative joint disease. 6. Myelodysplastic syndrome. 7. Gastroesophageal reflux disease. PAST SURGERIES: Orthopedic procedures. ALLERGIES: 1. Penicillin. 2. Sulfa. 3. Keflex. 4. Zithromax. MEDICATIONS: 1. Levothyroxine. 2. AcipHex. 3. Tramadol. 4. Myburtiq 5. Losartan 6. Metoprolol. SOCIAL HISTORY: Negative smoke. Negative alcohol. FAMILY HISTORY: Noncontributory. VITAL SIGNS: Stable, afebrile. REVIEW OF SYSTEMS: Well-nourished female currently in no acute distress. She is not experiencing any shortness of breath or difficulty breathing. No chest pain, palpitations, or diaphoresis. No nausea, vomiting, diarrhea, or constipation. No fever or chills. No recent inadvertent weight loss. She does have right eye hemianopsia. PHYSICAL EXAMINATION: CHEST: Good breath sounds bilaterally. HEART: Regular. No murmurs. HEENT: No scleral icterus. No cervical lymphadenopathy. ABDOMEN: Soft, nontender, nondistended. SKIN: Warm and dry. ASSESSMENT AND PLAN: 76-year-old female with right-sided visual changes, which may indicate a giant cell arteritis versus a temporal arteritis, which would require steroid therapy to prevent further propagation. A recent CT scan was performed of the head, which did not show any intracranial hemorrhage or enhancing mass. She also has a significant history of degenerative joint disease and scheduled for a total knee replacement at [facility] and time is of the essence to proceed with a diagnosis and treatment versus delaying the surgery due to the complications of high dose steroids and increased risk of wound breakdown, as well as infection. We will schedule her for a right-sided temporal artery biopsy. Job ID: [id number] Dictated Date: 05/08/2017 16:01:00 Global Project Manager Date: 05/08/2017 16:41:54/charly SIMMS
[2017-05-09] MEDS ORDERED: fentaNYL INJECTION 100 MCG/2 ML AMP ONE (10:34)
--- NOTE | 2017-05-09 10:40 | Progress Note-Pre Operative ---
Pre-Operative Progress Note H&P Reviewed The H&P was reviewed, patient examined and no changes noted. Date Seen by Provider: May 09, 2017 Time Seen by Provider: 10:00 Date H&P Reviewed: May 09, 2017 Time H&P Reviewed: 10:00 Pre-Operative Diagnosis: right visual change, headache, jaw claudication. MARCOS GARCIA MD May 09, 2017 10:40 am
[2017-05-09] MEDS ORDERED: morphine INJ 10 MG/ML 1ML (SYR OR VIAL) IVP PRN (10:45)
[2017-05-09] MEDS ORDERED: HYDROcodone/APAP 5 MG/325 MG (LORTAB) TAB PO ONE (10:45)
[2017-05-09] MEDS ORDERED: ACETAMINOPHEN 325 MG TABLET/CAPLET (TYLENOL) PO PRN (10:45)
[2017-05-09] MEDS ORDERED: ONDANSETRON 4 MG/2 ML (SDV) Z0FRAN IVP PRN (10:45)
[2017-05-09] MEDS ORDERED: PHENYLEPHRINE 100 MCG/ML 10 ML (ANESTHESIA) SYR ONE (11:03)
[2017-05-09] MEDS ORDERED: ONDANSETRON 4 MG/2 ML (SDV) Z0FRAN ONE (11:04)
[2017-05-09 11:11] VITALS: BP 154/90
[2017-05-09] MEDS ORDERED: proPOfol 200 MG/20 ML (DIPRIVAN) VIAL IV ONE (11:51)
[2017-05-09] MEDS ORDERED: SEVOFLURANE (ULTANE) 15 ML INHAL SOLN ONE ×4 (11:51→12:50)
[2017-05-09] MEDS ORDERED: LACTATED RINGERS 2,000 ML IV ONE (12:50)
--- NOTE | 2017-05-09 13:06 | Progress Note-Post Operative ---
Post-Operative Progess Note Surgeon (s)/Counseling Services Manager (s) Surgeon MARCOS GARCIA MD Counseling Services Manager: none Pre-Operative Diagnosis right visual change, headache, jaw claudication. Post-Operative Diagnosis same Procedure & Operative Findings Date of Procedure 05/09/17 Procedure Performed/Findings open right superficial temporal artery biopsy(2cm) Anesthesia Type general LMA Estimated Blood Loss Estimated blood loss (mL): minimal Specimens/Packing Specimens Removed right temporal artery MARCOS GARCIA MD May 09, 2017 1:06 pm
--- NOTE | 2017-05-09 13:07 | Discharge Inst-Surgical ---
D/C Lap Instructions-JOSE New, Converted, or Re-Newed RX: RX on Chart Follow Up PRN Activity as tolerated Regular Diet Symptoms to Report: Fever over 101 degree F, Nausea/Vomiting Infection Signs and Symptoms to report: Increased redness, Foul odor of wound, Increased drainage Bathing instructions: May shower Operative Area Clean/Dry; Keep incision clean/dry If any problems/questions: Contact your physician or go to Emergency Room MARCOS GARCIA MD May 09, 2017 1:07 pm
[2017-05-09 13:35] VITALS: BP 139/72
[2017-05-09 14:05] VITALS: BP 150/78
[2017-05-09 14:35] VITALS: BP 157/81
[2017-05-09 15:00] VITALS: BP 157/81
--- NOTE | 2017-05-12 09:18 | OPERATIVE REPORT ---
PROCEDURE PHYSICIAN: MARCOS GARCIA DATE OF PROCEDURE: 05/09/2017 ATTENDING PRIMARY PHYSICIAN: Dr. Calderon PREOPERATIVE DIAGNOSIS: Visual changes, headaches, jaw claudication on the right face. POSTOPERATIVE DIAGNOSIS: Visual changes, headaches, jaw claudication on the right face. . PROCEDURE: Right superficial temporal artery biopsy. SURGEON: Dr. Garcia. ANESTHESIA: General laryngeal mask airway. ESTIMATED BLOOD LOSS: Minimal. FINDINGS: Inflamed temporal artery which appeared thickened. DISPOSITION: The patient tolerated the procedure well. Ms. Andie Devi is a 76-year-old female with right-sided eye disruption including right lateral hemianopsia, jaw claudication as well as headache. She was also found to have an elevated erythrocyte sedimentation rate, which may be consistent with temporal arteritis or giant cell arteritis. She also has a history of degenerative joint disease and myelodysplastic syndrome. She is scheduled to have a total right knee replacement at the [facility] in approximately one week. This issue needs to be addressed and treated before proceeding with surgery. The patient was brought to the operating room, laid supine on the table. After adequate IV pain and sedative medications and general laryngeal mask airway intubation, the right face and neck were prepped and draped in the standard surgical fashion. 1% lidocaine was used to anesthetize the overlying skin just superior and anterior to the right tragus. A vertical skin incision made using a 15 blade. The artery was identified and completely dissected out using tenotomy scissors. The artery was confirmed with a triphasic Doppler flow. Approximately a 2 cm segment was then dissected out and the proximal distal ends ligated using 3-0 silk suture. The segment was then excised using tenotomy scissors and sent to pathology. The subcutaneous tissue was then reapproximated using 3-0 Vicryl interrupted sutures. Skin was closed using 4-0 Monocryl running subcuticular sutures. The skin was then cleaned and covered with Dermabond. The patient tolerated the procedure well. We will start IV and oral pain medication as well as a clear liquid diet. We will await the final permanent pathology results and treatment as indicated. Job ID: [id number] Dictated Date: 05/09/2017 12:43:11 Substance Abuse Therapist Date: 05/12/2017 09:01:17 / oscar
== END 2017-05-09 15:00 | disposition home or self-care (01) ==
LOC: SDC 08:01
PROVIDERS: ATTEND Surgery
DX: H53.47 Heteronymous bilateral field defects (principal); R51 Headache; I73.9 Peripheral vascular disease, unspecified; D46.9 Myelodysplastic syndrome, unspecified; M19.90 Unspecified osteoarthritis, unspecified site; I10 Essential (primary) hypertension; E11.9 Type 2 diabetes mellitus without complications; K21.9 Gastro-esophageal reflux disease without esophagitis; E78.00 Pure hypercholesterolemia, unspecified; M81.0 Age-related osteoporosis without current pathological fracture; Z79.899 Other long term (current) drug therapy
CPT/HCPCS: 82962; 87081

== ENCOUNTER 2017-06-23 12:41 | Outpatient (RCR) | payer MEDICARE, BC ==
[~2017-06-23 12:41] MED LIST changes: -IOHEXOL 350 MG/ML 100 ML (OMNIPAQUE 350) VIAL IV ONE; -NS 100 ML (IVPB) BAG IV ONE
[2017-06-23 13:17] LABS: BASOPHILS % (AUTO) 0 % (0-10); EOSINOPHILS % (AUTO) 0 % (0-10); LYMPHOCYTES % (AUTO) 13 % (12-44); MEAN CORPUSCULAR HEMOGLOBIN 28 PG (25-34); MEAN CORPUSCULAR HGB CONC 32 G/DL (32-36); MEAN CORPUSCULAR VOLUME 87 FL (80-99); MEAN PLATELET VOLUME 11.8 FL (7.4-10.4); MONOCYTES # (AUTO) 3.3 X 10^3 (0.0-1.0); MONOCYTES % (AUTO) 22 % (0-12); NEUTROPHILS # (AUTO) 9.8 X 10^3 (1.8-7.8); NEUTROPHILS % (AUTO) 65 % (42-75); PLATELET COUNT 73 10^3/uL (130-400); RED BLOOD COUNT 3.63 10^6/uL (4.35-5.85); WHITE BLOOD COUNT 15.1 10^3/uL (4.3-11.0)
[2017-06-23 13:33] LABS: ALBUMIN 4.2 GM/DL (3.2-4.5); BILIRUBIN,TOTAL 0.6 MG/DL (0.1-1.0); CALCIUM 9.6 MG/DL (8.5-10.1); CREATININE SERUM 1.1 MG/DL (0.60-1.30); POTASSIUM 4.2 MMOL/L (3.6-5.0)
== END 2017-07-26 | disposition home or self-care (01) ==
LOC: ONC 12:41
PROVIDERS: ATTEND Internal Medicine Hematology & Oncology
DX: D46.9 Myelodysplastic syndrome, unspecified (principal); I10 Essential (primary) hypertension; E78.5 Hyperlipidemia, unspecified; Z79.899 Other long term (current) drug therapy
CPT/HCPCS: 36415; 80053; 83615; 85025; 99213

== ENCOUNTER → 2017-07-03 | Outpatient (CLI) | payer MEDICARE, BC ==
--- NOTE | 2017-07-03 12:41 | Diagnostic Imaging Report ---
INDICATION: Postmenopausal screening. FINDINGS: The total T score in the spine is 2.5. The T score in the right hip is 1.7. The T score in the left hip is 1.3. IMPRESSION: Normal bone mineralization for age. Dictated by: Dictated on workstation # [id number]
--- NOTE | 2017-07-04 09:09 | Diagnostic Imaging Report ---
Digital mammogram bilateral screening. This study was compared to the prior exam of 06/18/2016; 05/24/2015; and 05/03/2014. At this time there are no current complaints. There are scattered fibroglandular densities in both breasts which could obscure a lesion. The asymmetric fibroglandular tissue in the lateral aspect of the left breast seen on the CC views on the prior exam is again visualized and no different. There are also numerous benign-appearing calcifications scattered throughout each breast. These findings seem stable as well. There is no primary or secondary sign of malignancy noted. However, on the MLO view of the left breast there are a few punctate densities overlying the left axilla. I suspect these are secondary to deodorant artifact. Even so, I would recommend that this view be repeated for better quality. IMPRESSION: 1. There is no evidence for malignancy. 2. The MLO view of the left breast should be repeated. ACR BI-RADS Category 0: Incomplete. (Needs additional imaging evaluation). Result letter will be mailed to the patient. Note: At least 10% of breast cancer is not imaged by mammography. Dictated by: Dictated on workstation # [id number]
== END ==
LOC: RAD 10:07
PROVIDERS: ATTEND Internal Medicine
DX: Z12.31 Encounter for screening mammogram for malignant neoplasm of breast (principal); Z13.820 Encounter for screening for osteoporosis
CPT/HCPCS: 77067; 77080

== ENCOUNTER → 2017-07-18 | Outpatient (CLI) | payer MEDICARE ==
[~2017-07-18] MED LIST changes: -METO-270 PO; +METO-387 PO
--- NOTE | 2017-07-18 14:04 | Diagnostic Imaging Report ---
EXAMINATION: Left MLO diagnostic mammogram with tomography was performed. The current study was also evaluated with a Computer Aided Detection (CAD) system. INDICATION: Hyperdensities along the axillary region seen on 07/03/2017. FINDINGS: There are hyperdensities seen in the axillary region again demonstrated in a punctate fashion which appear, based on tomographic views, to be on the skin. IMPRESSION: Findings suggestive of benign appearing skin calcifications with no underlying suspicious abnormality. ACR BI-RADS Category 2: Benign findings. Result letter will be mailed to the patient. Note: At least 10% of breast cancer is not imaged by mammography. Dictated by: Dictated on workstation # [id number]
== END ==
LOC: RAD 07:36
PROVIDERS: ATTEND Internal Medicine
DX: R92.0 Mammographic microcalcification found on diagnostic imaging of breast (principal)

== ENCOUNTER 2017-09-15 08:28 | Outpatient (RCR) | payer MEDICARE ==
[2017-08-04 10:47] LABS: BASOPHILS % (AUTO) 0 % (0-10); EOSINOPHILS % (AUTO) 0 % (0-10); HEMATOCRIT 32 % (35-52); LYMPHOCYTES # (AUTO) 3.5 X 10^3 (1.0-4.0); LYMPHOCYTES % (AUTO) 26 % (12-44); MEAN CORPUSCULAR HEMOGLOBIN 30 PG (25-34); MEAN CORPUSCULAR HGB CONC 32 G/DL (32-36); MEAN CORPUSCULAR VOLUME 94 FL (80-99); MEAN PLATELET VOLUME 12.3 FL (7.4-10.4); MONOCYTES # (AUTO) 3.4 X 10^3 (0.0-1.0); MONOCYTES % (AUTO) 25 % (0-12); NEUTROPHILS # (AUTO) 6.4 X 10^3 (1.8-7.8); NEUTROPHILS % (AUTO) 48 % (42-75); PLATELET COUNT 93 10^3/uL (130-400); RED BLOOD COUNT 3.37 10^6/uL (4.35-5.85); RED CELL DISTRIBUTION WIDTH 20.6 % (10.0-14.5); WHITE BLOOD COUNT 13.4 10^3/uL (4.3-11.0)
[2017-08-04 11:14] LABS: ALBUMIN 4.1 GM/DL (3.2-4.5); BILIRUBIN,TOTAL 0.8 MG/DL (0.1-1.0); CALCIUM 9.6 MG/DL (8.5-10.1); CREATININE SERUM 1.03 MG/DL (0.60-1.30); TOTAL PROTEIN 7.1 GM/DL (6.4-8.2)
[2017-09-15 13:31] LABS: BASOPHILS % (AUTO) 0 % (0-10); EOSINOPHILS % (AUTO) 0 % (0-10); HEMATOCRIT 32 % (35-52); LYMPHOCYTES # (AUTO) 1.9 X 10^3 (1.0-4.0); LYMPHOCYTES % (AUTO) 17 % (12-44); MEAN CORPUSCULAR HEMOGLOBIN 32 PG (25-34); MEAN CORPUSCULAR HGB CONC 31 G/DL (32-36); MEAN CORPUSCULAR VOLUME 103 FL (80-99); MEAN PLATELET VOLUME 12.3 FL (7.4-10.4); MONOCYTES # (AUTO) 2.3 X 10^3 (0.0-1.0); MONOCYTES % (AUTO) 20 % (0-12); NEUTROPHILS # (AUTO) 7.1 X 10^3 (1.8-7.8); NEUTROPHILS % (AUTO) 63 % (42-75); PLATELET COUNT 76 10^3/uL (130-400); RED BLOOD COUNT 3.12 10^6/uL (4.35-5.85); RED CELL DISTRIBUTION WIDTH 14.9 % (10.0-14.5); WHITE BLOOD COUNT 11.3 10^3/uL (4.3-11.0)
[2017-09-15 13:43] LABS: ALBUMIN 4.2 GM/DL (3.2-4.5); BILIRUBIN,TOTAL 0.6 MG/DL (0.1-1.0); CALCIUM 9.5 MG/DL (8.5-10.1); CREATININE SERUM 1.06 MG/DL (0.60-1.30); POTASSIUM 4.1 MMOL/L (3.6-5.0); TOTAL PROTEIN 7.3 GM/DL (6.4-8.2)
== END 2017-11-02 | disposition home or self-care (01) ==
LOC: ONC 08:28
PROVIDERS: ATTEND Internal Medicine Hematology & Oncology
DX: D46.9 Myelodysplastic syndrome, unspecified (principal); I10 Essential (primary) hypertension; E78.5 Hyperlipidemia, unspecified; Z79.899 Other long term (current) drug therapy; E11.22 Type 2 diabetes mellitus with diabetic chronic kidney disease; I12.9 Hypertensive chronic kidney disease with stage 1 through stage 4 chronic kidney disease, or unspecified chronic kidney disease; N18.3 Chronic kidney disease, stage 3 (moderate)
CPT/HCPCS: 36415; 80053; 83615; 85025; 99213

== ENCOUNTER → 2018-01-01 | Outpatient (CLI) | payer MEDICARE ==
--- NOTE | 2018-01-01 17:08 | Diagnostic Imaging Report ---
INDICATION: Right leg pain. Right leg venous Doppler study was performed in the routine fashion with color flow Doppler and waveform analysis. FINDINGS: The right common femoral vein, superficial femoral vein, popliteal vein and visualized portion of the tibial veins show normal compressibility and venous flow patterns. There is normal augmentation. IMPRESSION: No evidence of deep vein thrombosis of the major veins of the right leg. Dictated by: Dictated on workstation # [id number]
== END ==
LOC: RAD 16:21
PROVIDERS: ATTEND Internal Medicine
DX: M79.661 Pain in right lower leg (principal)

== ENCOUNTER 2018-04-06 13:46 | Outpatient (RCR) | payer MEDICARE ==
[2018-03-09 13:47] LABS: BASOPHILS % (AUTO) 0 % (0-10); EOSINOPHILS % (AUTO) 0 % (0-10); HEMATOCRIT 35 % (35-52); HEMOGLOBIN 10.7 G/DL (11.5-16.0); LYMPHOCYTES # (AUTO) 2.1 X 10^3 (1.0-4.0); LYMPHOCYTES % (AUTO) 27 % (12-44); MEAN CORPUSCULAR HEMOGLOBIN 29 PG (25-34); MEAN CORPUSCULAR HGB CONC 31 G/DL (32-36); MEAN CORPUSCULAR VOLUME 92 FL (80-99); MONOCYTES # (AUTO) 1.8 X 10^3 (0.0-1.0); MONOCYTES % (AUTO) 22 % (0-12); NEUTROPHILS % (AUTO) 51 % (42-75); PLATELET COUNT 49 10^3/uL (130-400); RED BLOOD COUNT 3.75 10^6/uL (4.35-5.85); RED CELL DISTRIBUTION WIDTH 13.9 % (10.0-14.5); WHITE BLOOD COUNT 7.9 10^3/uL (4.3-11.0)
[2018-03-09 14:02] LABS: ALBUMIN 4.3 GM/DL (3.2-4.5); BILIRUBIN,TOTAL 0.5 MG/DL (0.1-1.0); CALCIUM 9.4 MG/DL (8.5-10.1); CREATININE SERUM 1.14 MG/DL (0.60-1.30); POTASSIUM 4.2 MMOL/L (3.6-5.0); TOTAL PROTEIN 7.5 GM/DL (6.4-8.2)
[2018-04-06 14:00] LABS: BASOPHILS % (AUTO) 0 % (0-10); EOSINOPHILS % (AUTO) 0 % (0-10); HEMATOCRIT 35 % (35-52); HEMOGLOBIN 11.4 G/DL (11.5-16.0); LYMPHOCYTES # (AUTO) 2.1 X 10^3 (1.0-4.0); LYMPHOCYTES % (AUTO) 25 % (12-44); MEAN CORPUSCULAR HEMOGLOBIN 29 PG (25-34); MEAN CORPUSCULAR HGB CONC 32 G/DL (32-36); MEAN CORPUSCULAR VOLUME 90 FL (80-99); MEAN PLATELET VOLUME 12.6 FL (7.4-10.4); MONOCYTES % (AUTO) 24 % (0-12); NEUTROPHILS # (AUTO) 4.2 X 10^3 (1.8-7.8); NEUTROPHILS % (AUTO) 50 % (42-75); PLATELET COUNT 52 10^3/uL (130-400); RED BLOOD COUNT 3.93 10^6/uL (4.35-5.85); RED CELL DISTRIBUTION WIDTH 13.8 % (10.0-14.5); WHITE BLOOD COUNT 8.4 10^3/uL (4.3-11.0)
[2018-04-06 14:20] LABS: ALBUMIN 4.3 GM/DL (3.2-4.5); BILIRUBIN,TOTAL 0.4 MG/DL (0.1-1.0); CALCIUM 9.6 MG/DL (8.5-10.1); CREATININE SERUM 1.05 MG/DL (0.60-1.30); POTASSIUM 4.4 MMOL/L (3.6-5.0); TOTAL PROTEIN 7.7 GM/DL (6.4-8.2)
== END 2018-06-07 | disposition home or self-care (01) ==
LOC: ONC 13:46
PROVIDERS: ATTEND Internal Medicine Hematology & Oncology
DX: D46.9 Myelodysplastic syndrome, unspecified (principal); I12.9 Hypertensive chronic kidney disease with stage 1 through stage 4 chronic kidney disease, or unspecified chronic kidney disease; E11.22 Type 2 diabetes mellitus with diabetic chronic kidney disease; N18.3 Chronic kidney disease, stage 3 (moderate); E78.5 Hyperlipidemia, unspecified; Z79.899 Other long term (current) drug therapy
CPT/HCPCS: 36415; 80053; 83615; 85025; 99213

== ENCOUNTER 2018-07-20 09:58 | Outpatient (RCR) | payer MEDICARE ==
[2018-06-24 09:03] LABS: BASOPHILS % (AUTO) 0 % (0-10); EOSINOPHILS % (AUTO) 0 % (0-10); HEMATOCRIT 28 % (35-52); HEMOGLOBIN 9.1 G/DL (11.5-16.0); LYMPHOCYTES # (AUTO) 2.6 X 10^3 (1.0-4.0); LYMPHOCYTES % (AUTO) 30 % (12-44); MEAN CORPUSCULAR HEMOGLOBIN 28 PG (25-34); MEAN CORPUSCULAR HGB CONC 32 G/DL (32-36); MEAN CORPUSCULAR VOLUME 89 FL (80-99); MEAN PLATELET VOLUME 11.1 FL (7.4-10.4); MONOCYTES # (AUTO) 2.6 X 10^3 (0.0-1.0); MONOCYTES % (AUTO) 30 % (0-12); NEUTROPHILS # (AUTO) 3.4 X 10^3 (1.8-7.8); NEUTROPHILS % (AUTO) 40 % (42-75); PLATELET COUNT 140 10^3/uL (130-400); RED BLOOD COUNT 3.21 10^6/uL (4.35-5.85); RED CELL DISTRIBUTION WIDTH 14.9 % (10.0-14.5); WHITE BLOOD COUNT 8.6 10^3/uL (4.3-11.0)
[2018-06-24 09:25] LABS: ALBUMIN 3.9 GM/DL (3.2-4.5); BILIRUBIN,TOTAL 0.7 MG/DL (0.1-1.0); CALCIUM 9.7 MG/DL (8.5-10.1); CREATININE SERUM 0.91 MG/DL (0.60-1.30); POTASSIUM 4.2 MMOL/L (3.6-5.0); TOTAL PROTEIN 7.7 GM/DL (6.4-8.2)
[2018-07-06 13:44] LABS: BASOPHILS % (AUTO) 0 % (0-10); EOSINOPHILS # (AUTO) 0.1 10^3/uL (0.0-0.3); EOSINOPHILS % (AUTO) 1 % (0-10); HEMATOCRIT 32 % (35-52); HEMOGLOBIN 10.1 G/DL (11.5-16.0); LYMPHOCYTES # (AUTO) 2.2 X 10^3 (1.0-4.0); LYMPHOCYTES % (AUTO) 25 % (12-44); MEAN CORPUSCULAR HEMOGLOBIN 29 PG (25-34); MEAN CORPUSCULAR HGB CONC 31 G/DL (32-36); MEAN CORPUSCULAR VOLUME 92 FL (80-99); MEAN PLATELET VOLUME 12.6 FL (7.4-10.4); MONOCYTES # (AUTO) 2.4 X 10^3 (0.0-1.0); MONOCYTES % (AUTO) 27 % (0-12); NEUTROPHILS # (AUTO) 4.1 X 10^3 (1.8-7.8); NEUTROPHILS % (AUTO) 47 % (42-75); PLATELET COUNT 112 10^3/uL (130-400); RED BLOOD COUNT 3.52 10^6/uL (4.35-5.85); RED CELL DISTRIBUTION WIDTH 15.9 % (10.0-14.5); WHITE BLOOD COUNT 8.7 10^3/uL (4.3-11.0)
[2018-07-13 15:17] LABS: BASOPHILS % (AUTO) 0 % (0-10); EOSINOPHILS # (AUTO) 0.2 10^3/uL (0.0-0.3); EOSINOPHILS % (AUTO) 3 % (0-10); HEMATOCRIT 33 % (35-52); HEMOGLOBIN 10.4 G/DL (11.5-16.0); LYMPHOCYTES # (AUTO) 1.7 X 10^3 (1.0-4.0); LYMPHOCYTES % (AUTO) 22 % (12-44); MEAN CORPUSCULAR HEMOGLOBIN 29 PG (25-34); MEAN CORPUSCULAR HGB CONC 31 G/DL (32-36); MEAN CORPUSCULAR VOLUME 92 FL (80-99); MEAN PLATELET VOLUME 12.4 FL (7.4-10.4); MONOCYTES # (AUTO) 1.8 X 10^3 (0.0-1.0); MONOCYTES % (AUTO) 22 % (0-12); NEUTROPHILS # (AUTO) 4.1 X 10^3 (1.8-7.8); NEUTROPHILS % (AUTO) 53 % (42-75); PLATELET COUNT 73 10^3/uL (130-400); RED CELL DISTRIBUTION WIDTH 15.7 % (10.0-14.5); WHITE BLOOD COUNT 7.8 10^3/uL (4.3-11.0)
[~2018-07-20 09:58] MED LIST changes: -LOSA100T28 PO; +LOSA100T8 PO
[2018-07-20 10:30] LABS: BASOPHILS % (AUTO) 0 % (0-10); EOSINOPHILS # (AUTO) 0.1 10^3/uL (0.0-0.3); EOSINOPHILS % (AUTO) 2 % (0-10); HEMATOCRIT 33 % (35-52); HEMOGLOBIN 10.4 G/DL (11.5-16.0); LYMPHOCYTES # (AUTO) 2.9 X 10^3 (1.0-4.0); LYMPHOCYTES % (AUTO) 32 % (12-44); MEAN CORPUSCULAR HEMOGLOBIN 30 PG (25-34); MEAN CORPUSCULAR HGB CONC 32 G/DL (32-36); MEAN CORPUSCULAR VOLUME 92 FL (80-99); MEAN PLATELET VOLUME 13.1 FL (7.4-10.4); MONOCYTES # (AUTO) 2.4 X 10^3 (0.0-1.0); MONOCYTES % (AUTO) 27 % (0-12); NEUTROPHILS # (AUTO) 3.5 X 10^3 (1.8-7.8); NEUTROPHILS % (AUTO) 40 % (42-75); PLATELET COUNT 66 10^3/uL (130-400); RED BLOOD COUNT 3.53 10^6/uL (4.35-5.85); RED CELL DISTRIBUTION WIDTH 15.5 % (10.0-14.5); WHITE BLOOD COUNT 8.9 10^3/uL (4.3-11.0)
[2018-07-20 10:59] LABS: ALBUMIN 4.4 GM/DL (3.2-4.5); BILIRUBIN,TOTAL 0.5 MG/DL (0.1-1.0); CREATININE SERUM 1.18 MG/DL (0.60-1.30); POTASSIUM 4.1 MMOL/L (3.6-5.0); TOTAL PROTEIN 7.9 GM/DL (6.4-8.2)
== END 2018-09-22 | disposition home or self-care (01) ==
LOC: ONC 09:58
PROVIDERS: ATTEND Internal Medicine Hematology & Oncology
DX: D46.9 Myelodysplastic syndrome, unspecified (principal); E11.22 Type 2 diabetes mellitus with diabetic chronic kidney disease; I12.9 Hypertensive chronic kidney disease with stage 1 through stage 4 chronic kidney disease, or unspecified chronic kidney disease; N18.3 Chronic kidney disease, stage 3 (moderate); E78.5 Hyperlipidemia, unspecified; Z79.899 Other long term (current) drug therapy
CPT/HCPCS: 36415; 80053; 83615; 85025; 85610; 85730; 99213

== ENCOUNTER → 2018-08-03 | Outpatient (CLI) | payer MEDICARE ==
--- NOTE | 2018-08-04 08:56 | Diagnostic Imaging Report ---
INDICATION: Screening. The current study was also evaluated with a Computer Aided Detection (CAD) system. 3-D tomosynthesis was also performed and reviewed. Comparison made with prior examination from 07/03/2017 back through 02/25/2012. FINDINGS: There are scattered fibroglandular densities bilaterally. There is a secretory benign type calcifications in both breasts. There is no dominant mass lesion or suspicious calcification identified. The skin, nipples and axilla are unremarkable. IMPRESSION: Category 2 benign. ACR BI-RADS Category 2: Benign findings. Result letter will be mailed to the patient. Note: At least 10% of breast cancer is not imaged by mammography. Dictated by: Dictated on workstation # [id number]
== END ==
LOC: RAD 15:05
PROVIDERS: ATTEND Internal Medicine
DX: Z12.31 Encounter for screening mammogram for malignant neoplasm of breast (principal)
CPT/HCPCS: 77067

== ENCOUNTER 2018-12-31 10:54 | Outpatient (RCR) | payer MEDICARE ==
[2018-10-08 10:09] LABS: BASOPHILS % (AUTO) 0 % (0-10); EOSINOPHILS % (AUTO) 0 % (0-10); HEMATOCRIT 36 % (35-52); HEMOGLOBIN 11.2 G/DL (11.5-16.0); LYMPHOCYTES # (AUTO) 3.3 X 10^3 (1.0-4.0); LYMPHOCYTES % (AUTO) 44 % (12-44); MEAN CORPUSCULAR HEMOGLOBIN 28 PG (25-34); MEAN CORPUSCULAR HGB CONC 31 G/DL (32-36); MEAN CORPUSCULAR VOLUME 90 FL (80-99); MONOCYTES % (AUTO) 27 % (0-12); NEUTROPHILS # (AUTO) 2.2 X 10^3 (1.8-7.8); NEUTROPHILS % (AUTO) 29 % (42-75); PLATELET COUNT 59 10^3/uL (130-400); RED CELL DISTRIBUTION WIDTH 13.8 % (10.0-14.5); WHITE BLOOD COUNT 7.4 10^3/uL (4.3-11.0)
[2018-10-08 10:31] LABS: ALBUMIN 4.3 GM/DL (3.2-4.5); BILIRUBIN,TOTAL 0.5 MG/DL (0.1-1.0); CALCIUM 9.5 MG/DL (8.5-10.1); CREATININE SERUM 1.04 MG/DL (0.60-1.30); POTASSIUM 3.8 MMOL/L (3.6-5.0); TOTAL PROTEIN 7.7 GM/DL (6.4-8.2)
[~2018-12-31 10:54] MED LIST changes: +LOSA100T57 PO; -LOSA100T8 PO; -ROSU10TA PO; +ROSU10TA22 PO
[2018-12-31 11:16] LABS: BASOPHILS % (AUTO) 0 % (0-10); EOSINOPHILS % (AUTO) 0 % (0-10); HEMATOCRIT 36 % (35-52); HEMOGLOBIN 11.3 G/DL (11.5-16.0); LYMPHOCYTES # (AUTO) 2.6 X 10^3 (1.0-4.0); LYMPHOCYTES % (AUTO) 41 % (12-44); MEAN CORPUSCULAR HGB CONC 31 G/DL (32-36); MEAN CORPUSCULAR VOLUME 88 FL (80-99); MONOCYTES # (AUTO) 1.9 X 10^3 (0.0-1.0); MONOCYTES % (AUTO) 30 % (0-12); NEUTROPHILS # (AUTO) 1.8 X 10^3 (1.8-7.8); NEUTROPHILS % (AUTO) 29 % (42-75); PLATELET COUNT 61 10^3/uL (130-400); RED CELL DISTRIBUTION WIDTH 14.6 % (10.0-14.5); WHITE BLOOD COUNT 6.4 10^3/uL (4.3-11.0)
[2018-12-31 11:17] LABS: MEAN CORPUSCULAR HEMOGLOBIN 27 PG (25-34)
[2018-12-31 11:35] LABS: ALBUMIN 4.4 GM/DL (3.2-4.5); BILIRUBIN,TOTAL 0.5 MG/DL (0.1-1.0); CALCIUM 9.8 MG/DL (8.5-10.1); CREATININE SERUM 1.15 MG/DL (0.60-1.30); POTASSIUM 3.9 MMOL/L (3.6-5.0); TOTAL PROTEIN 7.8 GM/DL (6.4-8.2)
== END 2019-01-06 | disposition home or self-care (01) ==
LOC: ONC 10:54
PROVIDERS: ATTEND Internal Medicine Hematology & Oncology
DX: D46.9 Myelodysplastic syndrome, unspecified (principal); E11.22 Type 2 diabetes mellitus with diabetic chronic kidney disease; I12.9 Hypertensive chronic kidney disease with stage 1 through stage 4 chronic kidney disease, or unspecified chronic kidney disease; N18.3 Chronic kidney disease, stage 3 (moderate); E78.5 Hyperlipidemia, unspecified; Z79.899 Other long term (current) drug therapy
CPT/HCPCS: 36415; 80053; 82728; 83615; 85025; 99213

== ENCOUNTER 2019-06-17 13:36 | Outpatient (RCR) | payer MEDICARE ==
[2019-03-25 10:53] LABS: BASOPHILS % (AUTO) 0 % (0-10); EOSINOPHILS % (AUTO) 0 % (0-10); HEMATOCRIT 34 % (35-52); HEMOGLOBIN 11.1 G/DL (11.5-16.0); LYMPHOCYTES # (AUTO) 2.9 X 10^3 (1.0-4.0); LYMPHOCYTES % (AUTO) 37 % (12-44); MEAN CORPUSCULAR HEMOGLOBIN 28 PG (25-34); MEAN CORPUSCULAR HGB CONC 32 G/DL (32-36); MEAN CORPUSCULAR VOLUME 87 FL (80-99); MONOCYTES # (AUTO) 2.6 X 10^3 (0.0-1.0); MONOCYTES % (AUTO) 32 % (0-12); NEUTROPHILS # (AUTO) 2.5 X 10^3 (1.8-7.8); NEUTROPHILS % (AUTO) 31 % (42-75); PLATELET COUNT 53 10^3/uL (130-400); RED CELL DISTRIBUTION WIDTH 14.4 % (10.0-14.5); WHITE BLOOD COUNT 8.1 10^3/uL (4.3-11.0)
[2019-03-25 11:22] LABS: ALBUMIN 4.3 GM/DL (3.2-4.5); BILIRUBIN,TOTAL 0.5 MG/DL (0.1-1.0); CALCIUM 9.6 MG/DL (8.5-10.1); CREATININE SERUM 1.1 MG/DL (0.60-1.30); TOTAL PROTEIN 7.8 GM/DL (6.4-8.2)
[2019-06-17 13:50] LABS: BASOPHILS % (AUTO) 0 % (0-10); EOSINOPHILS % (AUTO) 0 % (0-10); HEMATOCRIT 35 % (35-52); HEMOGLOBIN 10.6 G/DL (11.5-16.0); LYMPHOCYTES # (AUTO) 2.6 X 10^3 (1.0-4.0); LYMPHOCYTES % (AUTO) 32 % (12-44); MEAN CORPUSCULAR HEMOGLOBIN 27 PG (25-34); MEAN CORPUSCULAR HGB CONC 31 G/DL (32-36); MEAN CORPUSCULAR VOLUME 90 FL (80-99); MEAN PLATELET VOLUME 12.6 FL (7.4-10.4); MONOCYTES # (AUTO) 2.6 X 10^3 (0.0-1.0); MONOCYTES % (AUTO) 33 % (0-12); NEUTROPHILS # (AUTO) 2.8 X 10^3 (1.8-7.8); NEUTROPHILS % (AUTO) 35 % (42-75); PLATELET COUNT 52 10^3/uL (130-400); RED CELL DISTRIBUTION WIDTH 14.4 % (10.0-14.5)
[2019-06-17 14:11] LABS: ALBUMIN 4.2 GM/DL (3.2-4.5); BILIRUBIN,TOTAL 0.4 MG/DL (0.1-1.0); CALCIUM 9.3 MG/DL (8.5-10.1); CREATININE SERUM 1.22 MG/DL (0.60-1.30); POTASSIUM 3.8 MMOL/L (3.6-5.0); TOTAL PROTEIN 7.8 GM/DL (6.4-8.2)
== END 2019-06-23 | disposition home or self-care (01) ==
LOC: ONC 13:36
PROVIDERS: ATTEND Internal Medicine Hematology & Oncology
DX: D46.9 Myelodysplastic syndrome, unspecified (principal); E11.22 Type 2 diabetes mellitus with diabetic chronic kidney disease; I12.9 Hypertensive chronic kidney disease with stage 1 through stage 4 chronic kidney disease, or unspecified chronic kidney disease; N18.3 Chronic kidney disease, stage 3 (moderate); E78.5 Hyperlipidemia, unspecified; Z79.899 Other long term (current) drug therapy
CPT/HCPCS: 36415; 80053; 82728; 83615; 85025; 99213

== ENCOUNTER → 2019-08-04 | Outpatient (CLI) | payer MEDICARE ==
--- NOTE | 2019-08-04 12:55 | Diagnostic Imaging Report ---
INDICATION: Routine screening. COMPARISON: 08/03/2018 and 07/03/2017. TECHNIQUE: 2D and 3D bilateral screening mammography was performed with CAD. FINDINGS: Scattered fibroglandular densities are identified bilaterally. Benign type calcifications are again noted scattered throughout both breasts. No mass or malignant appearing microcalcifications are seen. The axillae are unremarkable. IMPRESSION: No mammographic features suspicious for malignancy are identified. ACR BI-RADS Category 2: Benign findings. Result letter will be mailed to the patient. Note: At least 10% of breast cancer is not imaged by mammography. Dictated by: Dictated on workstation # [id number]
== END ==
LOC: RAD 09:53
PROVIDERS: ATTEND Internal Medicine
DX: Z12.31 Encounter for screening mammogram for malignant neoplasm of breast (principal)
CPT/HCPCS: 77067

== ENCOUNTER 2019-09-13 12:45 | Outpatient (RCR) | payer MEDICARE ==
[~2019-09-13 12:45] MED LIST changes: -METO-387 PO; +MTP25TSR PO; -TRAM50TA2 PO; +TRM50T PO
[2019-09-13 12:58] LABS: BASOPHILS % (AUTO) 0 % (0-10); EOSINOPHILS % (AUTO) 0 % (0-10); HEMATOCRIT 35 % (35-52); HEMOGLOBIN 10.6 G/DL (11.5-16.0); LYMPHOCYTES # (AUTO) 2.3 X 10^3 (1.0-4.0); LYMPHOCYTES % (AUTO) 35 % (12-44); MEAN CORPUSCULAR HEMOGLOBIN 27 PG (25-34); MEAN CORPUSCULAR HGB CONC 31 G/DL (32-36); MEAN CORPUSCULAR VOLUME 89 FL (80-99); MONOCYTES # (AUTO) 3.3 X 10^3 (0.0-1.0); MONOCYTES % (AUTO) 52 % (0-12); NEUTROPHILS # (AUTO) 0.8 X 10^3 (1.8-7.8); NEUTROPHILS % (AUTO) 13 % (42-75); PLATELET COUNT 45 10^3/uL (130-400); RED CELL DISTRIBUTION WIDTH 14.6 % (10.0-14.5); WHITE BLOOD COUNT 6.4 10^3/uL (4.3-11.0)
[2019-09-13 13:17] LABS: ALBUMIN 4.1 GM/DL (3.2-4.5); BILIRUBIN,TOTAL 0.4 MG/DL (0.1-1.0); CREATININE SERUM 1.05 MG/DL (0.60-1.30); POTASSIUM 3.7 MMOL/L (3.6-5.0); TOTAL PROTEIN 7.8 GM/DL (6.4-8.2)
== END 2019-12-12 | disposition home or self-care (01) ==
LOC: ONC 12:45
PROVIDERS: ATTEND Internal Medicine Hematology & Oncology
DX: D46.9 Myelodysplastic syndrome, unspecified (principal); E11.22 Type 2 diabetes mellitus with diabetic chronic kidney disease; I12.9 Hypertensive chronic kidney disease with stage 1 through stage 4 chronic kidney disease, or unspecified chronic kidney disease; N18.3 Chronic kidney disease, stage 3 (moderate); E78.5 Hyperlipidemia, unspecified; Z79.899 Other long term (current) drug therapy
CPT/HCPCS: 36415; 80053; 83615; 85025; 99213

== ENCOUNTER 2019-12-13 12:51 | Outpatient (RCR) | payer MEDICARE ==
[2019-12-13 13:25] LABS: BASOPHILS % (AUTO) 0 % (0-10); EOSINOPHILS % (AUTO) 0 % (0-10); HEMATOCRIT 34 % (35-52); HEMOGLOBIN 10.6 G/DL (11.5-16.0); LYMPHOCYTES # (AUTO) 2.7 X 10^3 (1.0-4.0); LYMPHOCYTES % (AUTO) 44 % (12-44); MEAN CORPUSCULAR HEMOGLOBIN 28 PG (25-34); MEAN CORPUSCULAR HGB CONC 31 G/DL (32-36); MEAN CORPUSCULAR VOLUME 90 FL (80-99); MEAN PLATELET VOLUME 13.2 FL (7.4-10.4); MONOCYTES # (AUTO) 2.1 X 10^3 (0.0-1.0); MONOCYTES % (AUTO) 34 % (0-12); NEUTROPHILS # (AUTO) 1.3 X 10^3 (1.8-7.8); NEUTROPHILS % (AUTO) 21 % (42-75); PLATELET COUNT 50 10^3/uL (130-400); RED CELL DISTRIBUTION WIDTH 14.1 % (10.0-14.5); WHITE BLOOD COUNT 6.1 10^3/uL (4.3-11.0)
[2019-12-13 13:44] LABS: ALBUMIN 4.1 GM/DL (3.2-4.5); BILIRUBIN,TOTAL 0.4 MG/DL (0.1-1.0); CALCIUM 9.4 MG/DL (8.5-10.1); CREATININE SERUM 0.95 MG/DL (0.60-1.30); POTASSIUM 3.3 MMOL/L (3.6-5.0); TOTAL PROTEIN 7.7 GM/DL (6.4-8.2)
== END 2020-03-12 | disposition home or self-care (01) ==
LOC: ONC 12:51
PROVIDERS: ATTEND Internal Medicine Hematology & Oncology
DX: C93.10 Chronic myelomonocytic leukemia not having achieved remission (principal); D69.6 Thrombocytopenia, unspecified; D63.1 Anemia in chronic kidney disease; M17.0 Bilateral primary osteoarthritis of knee; E11.22 Type 2 diabetes mellitus with diabetic chronic kidney disease; I12.9 Hypertensive chronic kidney disease with stage 1 through stage 4 chronic kidney disease, or unspecified chronic kidney disease; N18.3 Chronic kidney disease, stage 3 (moderate); E78.5 Hyperlipidemia, unspecified; Z96.651 Presence of right artificial knee joint; Z96.652 Presence of left artificial knee joint; Z86.79 Personal history of other diseases of the circulatory system
CPT/HCPCS: 80053; 83615; 85025; 99213

== ENCOUNTER → 2020-04-24 | Outpatient (CLI) | payer MEDICARE ==
[2020-04-24 13:06] LABS: BASOPHILS % (AUTO) 0 % (0-10); EOSINOPHILS % (AUTO) 0 % (0-10); HEMATOCRIT 35 % (35-52); LYMPHOCYTES % (AUTO) 33 % (12-44); MEAN CORPUSCULAR HEMOGLOBIN 28 PG (25-34); MEAN CORPUSCULAR HGB CONC 31 G/DL (32-36); MEAN CORPUSCULAR VOLUME 89 FL (80-99); MONOCYTES # (AUTO) 1.9 X 10^3 (0.0-1.0); MONOCYTES % (AUTO) 30 % (0-12); NEUTROPHILS # (AUTO) 2.4 X 10^3 (1.8-7.8); NEUTROPHILS % (AUTO) 38 % (42-75); PLATELET COUNT 52 10^3/uL (130-400); RED CELL DISTRIBUTION WIDTH 14.3 % (10.0-14.5); WHITE BLOOD COUNT 6.3 10^3/uL (4.3-11.0)
[2020-04-24 13:27] LABS: ALBUMIN 4.1 GM/DL (3.2-4.5); BILIRUBIN,TOTAL 0.4 MG/DL (0.1-1.0); CALCIUM 9.5 MG/DL (8.5-10.1); CREATININE SERUM 1.31 MG/DL (0.60-1.30); POTASSIUM 3.8 MMOL/L (3.6-5.0); TOTAL PROTEIN 7.9 GM/DL (6.4-8.2)
== END ==
LOC: EDSTATUS 03-13 11:20 → ONC 12:56
PROVIDERS: ATTEND Internal Medicine Hematology & Oncology
DX: C93.10 Chronic myelomonocytic leukemia not having achieved remission (principal); D69.6 Thrombocytopenia, unspecified; N18.3 Chronic kidney disease, stage 3 (moderate); M17.11 Unilateral primary osteoarthritis, right knee; Z96.651 Presence of right artificial knee joint
CPT/HCPCS: 80053; 83615; 85025; G0463

== ENCOUNTER → 2020-08-15 | Outpatient (CLI) | payer MEDICARE ==
[2020-08-15 13:16] LABS: BASOPHILS % (AUTO) 0 % (0-10); EOSINOPHILS % (AUTO) 0 % (0-10); MEAN CORPUSCULAR VOLUME 90 fL (80-99)
[2020-08-15 13:18] LABS: HEMATOCRIT 36 % (35-52); HEMOGLOBIN 10.9 g/dL (11.5-16.0); LYMPHOCYTES # (AUTO) 2.1 10^3/uL (1.0-4.0); LYMPHOCYTES % (AUTO) 29 % (12-44); MEAN CORPUSCULAR HEMOGLOBIN 28 pg (25-34); MEAN CORPUSCULAR HGB CONC 31 g/dL (32-36); MEAN PLATELET VOLUME 13.3 fL (9.0-12.2); MONOCYTES # (AUTO) 1.9 10^3/uL (0.0-1.0); MONOCYTES % (AUTO) 27 % (0-12); NEUTROPHILS # (AUTO) 3.1 10^3/uL (1.8-7.8); NEUTROPHILS % (AUTO) 43 % (42-75); PLATELET COUNT 52 10^3/uL (130-400); WHITE BLOOD COUNT 7.2 10^3/uL (4.3-11.0)
[2020-08-15 13:38] LABS: BILIRUBIN,TOTAL 0.6 MG/DL (0.1-1.0); CALCIUM 8.8 MG/DL (8.5-10.1); CREATININE SERUM 1.09 MG/DL (0.60-1.30); POTASSIUM 3.9 MMOL/L (3.6-5.0); TOTAL PROTEIN 7.7 GM/DL (6.4-8.2)
== END ==
LOC: ONC 13:01
PROVIDERS: ATTEND Internal Medicine Hematology & Oncology
DX: C93.10 Chronic myelomonocytic leukemia not having achieved remission (principal); D69.6 Thrombocytopenia, unspecified; D63.1 Anemia in chronic kidney disease; M17.0 Bilateral primary osteoarthritis of knee; I12.9 Hypertensive chronic kidney disease with stage 1 through stage 4 chronic kidney disease, or unspecified chronic kidney disease; E11.22 Type 2 diabetes mellitus with diabetic chronic kidney disease; N18.30 Chronic kidney disease, stage 3 unspecified; E78.5 Hyperlipidemia, unspecified; Z86.79 Personal history of other diseases of the circulatory system; Z96.653 Presence of artificial knee joint, bilateral
CPT/HCPCS: 80053; 83615; 85025; G0463; 99213

== ENCOUNTER → 2020-08-25 | Outpatient (CLI) | payer MEDICARE ==
--- NOTE | 2020-08-25 11:38 | Diagnostic Imaging Report ---
Digital mammogram bilateral screening COMPARISONS: 08/04/2019, 08/03/2018, 07/03/2017 and 06/18/2016. The current study was also evaluated with a Computer Aided Detection (CAD) system. FINDINGS: The fibroglandular tissue in both breasts is heterogeneously dense. This does limit the sensitivity of this exam. No primary or secondary sign of malignancy is noted. IMPRESSION: There is no radiographic evidence for malignancy. ACR BI-RADS Category 1: Negative. Result letter will be mailed to the patient. Note: At least 10% of breast cancer is not imaged by mammography. Dictated by: Dictated on workstation # [id number]
== END ==
LOC: RAD 10:22
PROVIDERS: ATTEND Internal Medicine
DX: Z12.31 Encounter for screening mammogram for malignant neoplasm of breast (principal)
CPT/HCPCS: 77063; 77067

== ENCOUNTER → 2020-11-21 | Outpatient (CLI) | payer MEDICARE ==
[2020-11-21 15:35] LABS: HEMOGLOBIN 9.9 g/dL (11.5-16.0); NEUTROPHILS % (AUTO) 49 % (42-75)
[2020-11-21 15:37] LABS: BASOPHILS % (AUTO) 0 % (0-10); EOSINOPHILS % (AUTO) 0 % (0-10); HEMATOCRIT 32 % (35-52); LYMPHOCYTES # (AUTO) 1.9 10^3/uL (1.0-4.0); LYMPHOCYTES % (AUTO) 18 % (12-44); MEAN CORPUSCULAR HEMOGLOBIN 28 pg (25-34); MEAN CORPUSCULAR HGB CONC 31 g/dL (32-36); MEAN CORPUSCULAR VOLUME 91 fL (80-99); MEAN PLATELET VOLUME 12.5 fL (9.0-12.2); MONOCYTES # (AUTO) 3.4 10^3/uL (0.0-1.0); MONOCYTES % (AUTO) 32 % (0-12); NEUTROPHILS # (AUTO) 5.1 10^3/uL (1.8-7.8); PLATELET COUNT 60 10^3/uL (130-400); WHITE BLOOD COUNT 10.5 10^3/uL (4.3-11.0)
[2020-11-21 15:54] LABS: ALBUMIN 3.8 GM/DL (3.2-4.5); BILIRUBIN,TOTAL 0.6 MG/DL (0.1-1.0); CALCIUM 8.9 MG/DL (8.5-10.1); CREATININE SERUM 1.19 MG/DL (0.60-1.30); POTASSIUM 3.8 MMOL/L (3.6-5.0); TOTAL PROTEIN 7.6 GM/DL (6.4-8.2)
== END ==
LOC: ONC 15:26
PROVIDERS: ATTEND Internal Medicine Hematology & Oncology
DX: C93.10 Chronic myelomonocytic leukemia not having achieved remission (principal); D69.6 Thrombocytopenia, unspecified; D64.9 Anemia, unspecified; M17.0 Bilateral primary osteoarthritis of knee; N81.10 Cystocele, unspecified; E11.22 Type 2 diabetes mellitus with diabetic chronic kidney disease; I12.9 Hypertensive chronic kidney disease with stage 1 through stage 4 chronic kidney disease, or unspecified chronic kidney disease; N18.30 Chronic kidney disease, stage 3 unspecified; E78.5 Hyperlipidemia, unspecified; F41.9 Anxiety disorder, unspecified; Z96.653 Presence of artificial knee joint, bilateral; Z85.42 Personal history of malignant neoplasm of other parts of uterus; Z86.79 Personal history of other diseases of the circulatory system
CPT/HCPCS: 80053; 83615; 85025; G0463; 99213

== ENCOUNTER 2021-02-13 14:13 | Outpatient (RCR) | payer MEDICARE ==
[2021-01-02 11:17] LABS: BASOPHILS % (AUTO) 0 % (0-10); EOSINOPHILS % (AUTO) 0 % (0-10); HEMOGLOBIN 10.9 g/dL (11.5-16.0)
[2021-01-02 11:19] LABS: HEMATOCRIT 35 % (35-52); LYMPHOCYTES # (AUTO) 2.8 10^3/uL (1.0-4.0); LYMPHOCYTES % (AUTO) 42 % (12-44); MEAN CORPUSCULAR HEMOGLOBIN 28 pg (25-34); MEAN CORPUSCULAR HGB CONC 31 g/dL (32-36); MEAN CORPUSCULAR VOLUME 90 fL (80-99); MONOCYTES % (AUTO) 30 % (0-12); NEUTROPHILS # (AUTO) 1.8 10^3/uL (1.8-7.8); NEUTROPHILS % (AUTO) 27 % (42-75); PLATELET COUNT 51 10^3/uL (130-400); WHITE BLOOD COUNT 6.7 10^3/uL (4.3-11.0)
[2021-01-02 11:37] LABS: BILIRUBIN,TOTAL 0.5 MG/DL (0.1-1.0); CREATININE SERUM 1.22 MG/DL (0.60-1.30); POTASSIUM 3.7 MMOL/L (3.6-5.0); TOTAL PROTEIN 7.7 GM/DL (6.4-8.2)
[2021-02-13 14:30] LABS: BASOPHILS # (AUTO) 0.1 10^3/uL (0.0-0.1); BASOPHILS % (AUTO) 2 % (0-10); EOSINOPHILS % (AUTO) 0 % (0-10); HEMATOCRIT 38 % (35-52); HEMOGLOBIN 11.3 g/dL (11.5-16.0); LYMPHOCYTES # (AUTO) 2.7 X 10^3 (1.0-4.0); LYMPHOCYTES % (AUTO) 39 % (12-44); MEAN CORPUSCULAR HEMOGLOBIN 27 pg (25-34); MEAN CORPUSCULAR HGB CONC 30 g/dL (32-36); MEAN CORPUSCULAR VOLUME 91 fL (80-99); MEAN PLATELET VOLUME 13.3 fL (9.0-12.2); MONOCYTES # (AUTO) 1.9 X 10^3 (0.0-1.0); MONOCYTES % (AUTO) 27 % (0-12); NEUTROPHILS # (AUTO) 2.1 X 10^3 (1.8-7.8); NEUTROPHILS % (AUTO) 30 % (42-75); PLATELET COUNT 54 10^3/uL (130-400); WHITE BLOOD COUNT 6.8 10^3/uL (4.3-11.0)
[2021-02-13 14:47] LABS: ALBUMIN 4.1 GM/DL (3.2-4.5); BILIRUBIN,TOTAL 0.5 MG/DL (0.1-1.0); CALCIUM 9.4 MG/DL (8.5-10.1); CREATININE SERUM 1.26 MG/DL (0.60-1.30); POTASSIUM 3.9 MMOL/L (3.6-5.0); TOTAL PROTEIN 7.9 GM/DL (6.4-8.2)
== END 2021-04-02 | disposition home or self-care (01) ==
LOC: ONC 14:13
PROVIDERS: ATTEND Internal Medicine Hematology & Oncology
DX: C93.10 Chronic myelomonocytic leukemia not having achieved remission (principal); D69.6 Thrombocytopenia, unspecified; D64.9 Anemia, unspecified; M19.90 Unspecified osteoarthritis, unspecified site; N81.10 Cystocele, unspecified; F41.9 Anxiety disorder, unspecified; M50.10 Cervical disc disorder with radiculopathy, unspecified cervical region; E07.9 Disorder of thyroid, unspecified; E11.22 Type 2 diabetes mellitus with diabetic chronic kidney disease; I12.9 Hypertensive chronic kidney disease with stage 1 through stage 4 chronic kidney disease, or unspecified chronic kidney disease; N18.30 Chronic kidney disease, stage 3 unspecified; M51.16 Intervertebral disc disorders with radiculopathy, lumbar region; M48.061 Spinal stenosis, lumbar region without neurogenic claudication; D50.0 Iron deficiency anemia secondary to blood loss (chronic); K90.9 Intestinal malabsorption, unspecified; J30.2 Other seasonal allergic rhinitis; Z96.653 Presence of artificial knee joint, bilateral; Z86.79 Personal history of other diseases of the circulatory system; Z85.42 Personal history of malignant neoplasm of other parts of uterus; Z98.890 Other specified postprocedural states
CPT/HCPCS: 80053; 83615; 85025; 99213

== ENCOUNTER → 2021-05-04 | Outpatient (CLI) | payer MEDICARE | LOC: CARD 12:00 | PROVIDERS: ATTEND Internal Medicine | DX: I08.2 Rheumatic disorders of both aortic and tricuspid valves (principal) | CPT/HCPCS: 93306 ==

== ENCOUNTER → 2021-05-21 | Outpatient (CLI) | payer MEDICARE ==
[2021-05-21 13:31] LABS: BASOPHILS % (AUTO) 0 % (0-10); EOSINOPHILS % (AUTO) 0 % (0-10); HEMATOCRIT 35 % (35-52); HEMOGLOBIN 10.5 g/dL (11.5-16.0); LYMPHOCYTES # (AUTO) 2.5 10^3/uL (1.0-4.0); LYMPHOCYTES % (AUTO) 35 % (12-44); MEAN CORPUSCULAR HEMOGLOBIN 27 pg (25-34); MEAN CORPUSCULAR HGB CONC 30 g/dL (32-36); MEAN CORPUSCULAR VOLUME 91 fL (80-99); MEAN PLATELET VOLUME 13.3 fL (9.0-12.2); MONOCYTES # (AUTO) 1.9 10^3/uL (0.0-1.0); MONOCYTES % (AUTO) 27 % (0-12); NEUTROPHILS # (AUTO) 2.7 10^3/uL (1.8-7.8); NEUTROPHILS % (AUTO) 37 % (42-75); PLATELET COUNT 48 10^3/uL (130-400); WHITE BLOOD COUNT 7.2 10^3/uL (4.3-11.0)
[2021-05-21 13:53] LABS: ALBUMIN 3.9 GM/DL (3.2-4.5); BILIRUBIN,TOTAL 0.5 MG/DL (0.1-1.0); CREATININE SERUM 1.18 MG/DL (0.60-1.30); POTASSIUM 3.7 MMOL/L (3.6-5.0); TOTAL PROTEIN 7.8 GM/DL (6.4-8.2)
== END ==
LOC: EDSTATUS 13:20 → ONC 13:21
PROVIDERS: ATTEND Internal Medicine Hematology & Oncology
DX: C93.10 Chronic myelomonocytic leukemia not having achieved remission (principal); D46.B Refractory cytopenia with multilineage dysplasia and ring sideroblasts; D75.9 Disease of blood and blood-forming organs, unspecified; E11.9 Type 2 diabetes mellitus without complications; I12.9 Hypertensive chronic kidney disease with stage 1 through stage 4 chronic kidney disease, or unspecified chronic kidney disease; N18.30 Chronic kidney disease, stage 3 unspecified; M16.11 Unilateral primary osteoarthritis, right hip; M17.11 Unilateral primary osteoarthritis, right knee; Z96.651 Presence of right artificial knee joint; E66.9 Obesity, unspecified; E78.5 Hyperlipidemia, unspecified
CPT/HCPCS: 80053; 83615; 85025

== ENCOUNTER → 2021-08-14 | Outpatient (CLI) | payer MEDICARE ==
[2021-08-14 14:06] LABS: BASOPHILS % (AUTO) 0 % (0-10)
[2021-08-14 14:07] LABS: EOSINOPHILS % (AUTO) 0 % (0-10); HEMATOCRIT 36 % (35-52); LYMPHOCYTES # (AUTO) 2.8 10^3/uL (1.0-4.0); LYMPHOCYTES % (AUTO) 37 % (12-44); MEAN CORPUSCULAR HEMOGLOBIN 28 pg (25-34); MEAN CORPUSCULAR HGB CONC 30 g/dL (32-36); MEAN CORPUSCULAR VOLUME 91 fL (80-99); MONOCYTES # (AUTO) 2.1 10^3/uL (0.0-1.0); MONOCYTES % (AUTO) 28 % (0-12); NEUTROPHILS # (AUTO) 2.6 10^3/uL (1.8-7.8); NEUTROPHILS % (AUTO) 35 % (42-75); PLATELET COUNT 58 10^3/uL (130-400); WHITE BLOOD COUNT 7.5 10^3/uL (4.3-11.0)
[2021-08-14 14:25] LABS: BILIRUBIN,TOTAL 0.5 MG/DL (0.1-1.0); CALCIUM 9.2 MG/DL (8.5-10.1); CREATININE SERUM 1.36 MG/DL (0.60-1.30); POTASSIUM 3.9 MMOL/L (3.6-5.0)
== END ==
LOC: ONC 13:56
PROVIDERS: ATTEND Internal Medicine Hematology & Oncology
DX: C93.10 Chronic myelomonocytic leukemia not having achieved remission (principal); E11.22 Type 2 diabetes mellitus with diabetic chronic kidney disease; I12.9 Hypertensive chronic kidney disease with stage 1 through stage 4 chronic kidney disease, or unspecified chronic kidney disease; N18.30 Chronic kidney disease, stage 3 unspecified; D63.1 Anemia in chronic kidney disease; E78.5 Hyperlipidemia, unspecified; M17.0 Bilateral primary osteoarthritis of knee; E66.9 Obesity, unspecified; Z96.653 Presence of artificial knee joint, bilateral
CPT/HCPCS: 80053; 83615; 85025; G0463; 99213

== ENCOUNTER → 2021-08-27 | Outpatient (CLI) | payer MEDICARE ==
--- NOTE | 2021-08-27 12:53 | Diagnostic Imaging Report ---
INDICATION: Routine screening. COMPARISON: 08/25/2020 and 08/04/2019. TECHNIQUE: 2D and 3D bilateral screening mammography was performed with CAD. FINDINGS: Scattered fibroglandular densities are identified bilaterally. There are benign secretory-type calcifications throughout both breasts. No mass or malignant-appearing microcalcifications are seen. The axillae are unremarkable. IMPRESSION: No mammographic features suspicious for malignancy are identified. ACR BI-RADS Category 2: Benign findings. Result letter will be mailed to the patient. Note: At least 10% of breast cancer is not imaged by mammography. Dictated by: Dictated on workstation # [id number]
== END ==
LOC: RAD 10:45
PROVIDERS: ATTEND Internal Medicine
DX: Z12.31 Encounter for screening mammogram for malignant neoplasm of breast (principal)
CPT/HCPCS: 77063; 77067

== ENCOUNTER → 2021-10-07 | Outpatient (CLI) | payer MEDICARE ==
[2021-10-07 11:40] LABS: BASOPHILS % (AUTO) 0 % (0-10); EOSINOPHILS % (AUTO) 0 % (0-10)
[2021-10-07 11:42] LABS: HEMATOCRIT 36 % (35-52); HEMOGLOBIN 11.1 g/dL (11.5-16.0); LYMPHOCYTES % (AUTO) 35 % (12-44); MEAN CORPUSCULAR HEMOGLOBIN 27 pg (25-34); MEAN CORPUSCULAR HGB CONC 31 g/dL (32-36); MEAN CORPUSCULAR VOLUME 90 fL (80-99); MONOCYTES # (AUTO) 2.2 10^3/uL (0.0-1.0); MONOCYTES % (AUTO) 20 % (0-12); NEUTROPHILS # (AUTO) 4.9 10^3/uL (1.8-7.8); NEUTROPHILS % (AUTO) 43 % (42-75); PLATELET COUNT 70 10^3/uL (130-400); WHITE BLOOD COUNT 11.3 10^3/uL (4.3-11.0)
[2021-10-07 11:43] LABS: MEAN PLATELET VOLUME 13.7 fL (9.0-12.2)
[2021-10-07 12:10] LABS: BAND NEUTROPHILS 0 %; BASOPHILS % (MANUAL) 0 %; EOSINOPHILS % (MANUAL) 0 %; LYMPHOCYTES % (MANUAL) 37 %; MONOCYTES % (MANUAL) 14 %; NEUTROPHILS % (MANUAL) 49 %; RBC MORPH NORMAL
== END ==
LOC: LAB 11:27
PROVIDERS: ATTEND Obstetrics & Gynecology Gynecology
DX: D69.6 Thrombocytopenia, unspecified (principal)
CPT/HCPCS: 36415; 85007; 85027

== ENCOUNTER → 2021-11-05 | Outpatient (CLI) | payer MEDICARE ==
[2021-11-05 10:47] LABS: BASOPHILS % (AUTO) 0 % (0-10); EOSINOPHILS % (AUTO) 0 % (0-10); HEMATOCRIT 38 % (35-52); HEMOGLOBIN 11.5 g/dL (11.5-16.0); LYMPHOCYTES # (AUTO) 3.8 10^3/uL (1.0-4.0); LYMPHOCYTES % (AUTO) 38 % (12-44); MEAN CORPUSCULAR HEMOGLOBIN 28 pg (25-34); MEAN CORPUSCULAR HGB CONC 31 g/dL (32-36); MEAN CORPUSCULAR VOLUME 90 fL (80-99); MONOCYTES # (AUTO) 2.3 10^3/uL (0.0-1.0); MONOCYTES % (AUTO) 23 % (0-12); NEUTROPHILS # (AUTO) 3.8 10^3/uL (1.8-7.8); NEUTROPHILS % (AUTO) 38 % (42-75); PLATELET COUNT 59 10^3/uL (130-400)
[2021-11-05 11:11] LABS: ATYPICAL LYMPHOCYTES 1 %; BLAST CELLS 1 %; LYMPHOCYTES % (MANUAL) 40 %; MICROCYTOSIS SLIGHT; MONOCYTES % (MANUAL) 17 %; MYELOCYTES % 1 %; NEUTROPHILS % (MANUAL) 39 %
== END ==
LOC: LAB 10:24
PROVIDERS: ATTEND Obstetrics & Gynecology Gynecology
DX: D69.6 Thrombocytopenia, unspecified (principal)
CPT/HCPCS: 36415; 85007; 85027

== ENCOUNTER 2022-07-06 12:07 | Inpatient (IN) | payer MEDICARE ==
[~2022-07-06] VITALS: Ht 162 cm; Wt 84.0 kg
[~2022-07-06 12:07] MED LIST changes: +NF-CRES10T PO; -ROSU10TA22 PO
[2022-07-06 13:05] LABS: BASOPHILS % (AUTO) 0 % (0-10); EOSINOPHILS % (AUTO) 0 % (0-10); MEAN CORPUSCULAR HEMOGLOBIN 27 pg (25-34); WHITE BLOOD COUNT 5.7 10^3/uL (4.3-11.0)
[2022-07-06 13:07] LABS: HEMATOCRIT 38 % (35-52); HEMOGLOBIN 11.8 g/dL (11.5-16.0); LYMPHOCYTES # (AUTO) 1.6 10^3/uL (1.0-4.0); LYMPHOCYTES % (AUTO) 28 % (12-44); MEAN CORPUSCULAR HGB CONC 32 g/dL (32-36); MEAN CORPUSCULAR VOLUME 87 fL (80-99); MONOCYTES # (AUTO) 1.8 10^3/uL (0.0-1.0); MONOCYTES % (AUTO) 31 % (0-12); NEUTROPHILS # (AUTO) 2.3 10^3/uL (1.8-7.8); NEUTROPHILS % (AUTO) 40 % (42-75); PLATELET COUNT 55 10^3/uL (130-400)
[2022-07-06 13:08] LABS: ALBUMIN 4.5 GM/DL (3.2-4.5); POTASSIUM 3.8 MMOL/L (3.6-5.0)
[2022-07-06 13:09] LABS: CALCIUM 10.8 MG/DL (8.5-10.1)
[2022-07-06 13:11] LABS: TOTAL PROTEIN 8.9 GM/DL (6.4-8.2)
[2022-07-06 13:12] LABS: BILIRUBIN,TOTAL 0.7 MG/DL (0.1-1.0)
[2022-07-06 13:14] LABS: CREATININE SERUM 1.16 MG/DL (0.60-1.30)
[2022-07-06] MEDS ORDERED: LACTATED RINGERS 1,000 ML IV ONE (13:30)
[2022-07-06] MEDS ORDERED: ONDANSETRON 4 MG/2 ML (SDV) Z0FRAN IVP ONE ×2 (13:30→16:15)
[2022-07-06] MEDS ORDERED: HOLD METFORMIN - RECEIVED CONTRAST 20 ML VIAL IV SCH (13:45)
[2022-07-06] MEDS ORDERED: IOHEXOL 350 MG/ML 100 ML (OMNIPAQUE 350) VIAL IV ONE (13:45)
[2022-07-06] MEDS ORDERED: NS 100 ML (IVPB) BAG IV ONE (13:45)
[2022-07-06 13:49] LABS: LYMPHOCYTES % (MANUAL) 28 %; MONOCYTES % (MANUAL) 26 %; NEUTROPHILS % (MANUAL) 44 %; REACTIVE LYMPHOCYTES 2 %
[2022-07-06 13:50] LABS: RBC MORPH NORMAL
--- NOTE | 2022-07-06 14:58 | Diagnostic Imaging Report ---
PROCEDURE: CT abdomen and pelvis with contrast. TECHNIQUE: Multiple contiguous axial images were obtained through the abdomen and pelvis after administration of intravenous contrast. Auto Exposure Controls were utilized during the CT exam to meet ALARA standards for radiation dose reduction. All CT scans use one or more of the following dose optimizing techniques: automated exposure control, MA and/or KvP adjustment based on patient size and exam type or iterative reconstruction. INDICATION: Abdominal pain and emesis CT imaging of the abdomen and pelvis is performed without previous study for comparison. There is mild dependent atelectasis and/or pneumonitis in the lung bases. There is large hiatal hernia with fluid distention of the stomach. Possibility of volvulus at the hiatal hernia is not fully excluded. Duodenum is decompressed. Gallbladder surgically absent. No focal hepatic or splenic abnormality is identified. No definite pancreatic or adrenal gland abnormality is seen. There is a dominant cyst in the lower pole of the right kidney. Kidneys otherwise unremarkable.. There is no evidence of free fluid within the abdomen or pelvis. Unopacified bladder is unremarkable. There is dense calcification surrounding the bladder base and proximal urethra without bladder dilatation to suggest obstruction. IMPRESSION: Fluid distention of stomach with possible volvulus at the level of large hiatal. Clinical correlation is recommended. This could be assessed with endoscopy or possible upper gastrointestinal series. Otherwise, no definite acute abnormality is identified within the abdomen or pelvis. Dictated by: Dictated on workstation # [id number]
[2022-07-06] MEDS ORDERED: PANTOPRAZOLE 40 MG (PROTONIX) VIAL IV ONE ×2 (16:15→16:45)
[2022-07-06 16:26] LABS: BILIRUBIN,URINE NEGATIVE (NEGATIVE); CLARITY,URINE CLEAR; COLOR,URINE YELLOW; GLUCOSE, URINE (UA) NEGATIVE (NEGATIVE); KETONES,URINE 1+ (NEGATIVE); LEUKOCYTE ESTERASE ,URINE NEGATIVE (NEGATIVE); NITRITE,URINE NEGATIVE (NEGATIVE); PROTEIN,URINE 1+ (NEGATIVE)
[2022-07-06 16:32] LABS: OCCULT BLOOD,GASTRIC FLUID NEGATIVE (NEGATIVE)
[2022-07-06 16:37] LABS: BACTERIA,URINE TRACE /HPF; RBC,URINE RARE /HPF
[2022-07-06] MEDS ORDERED: NS IV 500 ML 500 ML IV ONE (17:30)
[2022-07-06] MEDS ORDERED: PROMETHAZINE INJ 25 MG/ML (PHENERGAN) AMP IVP ONE (17:30)
--- NOTE | 2022-07-06 17:30 | ED Abdominal Pain ---
General Chief Complaint: Abdominal/GI Problems Stated Complaint: VOMITING Nursing Triage Note: PT STATES VOMITING THAT STARTED YESTERDAY, NORMAL BM TODAY Source of Information: Patient Exam Limitations: No Limitations History of Present Illness Date Seen by Provider: Jul 06, 2022 Time Seen by Provider: 13:00 Initial Comments This 82-year-old woman presents to the emergency room with complaints of mild generalized abdominal pain along with nausea and vomiting since around noon yesterday. She ate a bowl of cereal and then developed abdominal discomfort and vomiting. From that point on any thing she tried to eat or drink would not stay down. She was able to take her blood pressure medication with a sip of water this morning. She later tried to take her gabapentin and vomited. She feels very gaseous in her upper abdomen. Her emesis has been reddish-brown in color. She did have 1 bowel movement today that was normal. She has not been passing much flatus. Additionally she has some unusual erythematous raised pruritic ringlike lesions on her lateral and posterior neck. The itching was successfully treated with a Benadryl topically but they did not dissipate. She has significant medical history that includes GERD and esophageal strictures requiring dilatation procedures. She is also on low-dose chronic prednisone therapy because of giant cell arteritis. She also has myelodysplastic disorder with thrombocytopenia. Dr. Steiner is her primary care provider. She does not have a surgeon or foster care worker locally yet. She is also on chronic prednisone therapy because of severe giant cell arteritis. Allergies and Home Medications Allergies Coded Allergies: Penicillins (Verified Allergy, Unknown, RASH, 05/09/17) Sulfa (Sulfonamide Antibiotics) (Verified Allergy, Unknown, RASH, 05/09/17) azithromycin (Verified Allergy, Unknown, RASH, 05/09/17) cephalexin (Verified Allergy, Unknown, RASH, 05/09/17) clindamycin (Verified Allergy, Unknown, 07/06/22) naproxen (Verified Adverse Reaction, Unknown, 05/09/17) HEADACHE Patient Home Medication List Home Medication List Reviewed: Yes Alprazolam (Xanax) 0.5 Mg Tablet, 0.5 MG PO PRN, (Reported) Entered as Reported by: LYUDMILA HARO on 05/09/17 0850 Cholecalciferol (Vitamin D3) (Vitamin D) 2,000 Unit Capsule, 2,000 UNIT PO DAILY, (Reported) Entered as Reported by: LYUDMILA HARO on 05/09/17 0850 Gabapentin (Gabapentin) 300 Mg Capsule, 300 MG PO TID, (Reported) Entered as Reported by: LYUDMILA HARO on 05/09/17 08 Levothyroxine Sodium (Levothyroxine Sodium) 112 Mcg Tablet, 112 MCG PO, (Reported) Entered as Reported by: LYUDMILA HARO on 05/09/17 08 Levothyroxine Sodium (Levothyroxine Sodium) 100 Mcg Tablet, 100 MCG PO UD, (Rep orted) Entered as Reported by: LYUDMILA HARO on 05/09/17 08 Losartan Potassium (Losartan Potassium) 100 Mg Tablet, 100 MG PO DAILY, (Reported) Entered as Reported by: LYUDMILA HARO on 05/09/17 0850 Metoprolol Succinate (Metoprolol Succinate) 25 Mg Tab.er.24h, 25 MG PO DAILY, (Reported) Entered as Reported by: LYUDMILA HARO on 05/09/17 08 Mirabegron (Myrbetriq) 50 Mg Tab.er.24h, 50 MG PO DAILY, (Reported) Entered as Reported by: LYUDMILA HARO on 05/09/17849 Rabeprazole Sodium (Aciphex) 20 Mg Tablet.dr, 20 MG PO DAILY, (Reported) Entered as Reported by: LYUDMILA HARO on 05/09/17 0850 Rosuvastatin Calcium (Crestor) 10 Mg Tablet, 10 MG PO TWICE WEEKLY, (Reported) Entered as Reported by: LYUDMILA HARO on 05/09/17 08 Tramadol HCl (Tramadol HCl) 50 Mg Tablet, 50 MG PO PRN, (Reported) Entered as Reported by: LYUDMILA HARO on 05/09/17 0850 Ubidecarenone (Co Q-10) 100 Mg Capsule, 100 MG PO TWICE WEEKLY, (Reported) Entered as Reported by: LYUDMILA HARO on 05/09/17 0850 Review of Systems Review of Systems Constitutional: no symptoms reported EENTM: No Symptoms Reported Respiratory: No Symptoms Reported Cardiovascular: No Symptoms Reported Gastrointestinal: See HPI Genitourinary: No Symptoms Reported Musculoskeletal: no symptoms reported Skin: no symptoms reported Psychiatric/Neurological: No Symptoms Reported Endocrine: No Symptoms Reported Hematologic/Lymphatic: See HPI Past Uwinvhk-Ezhaoh-Cjdfie Hx Patient Social History Tobacco Use?: No Substance use?: No Alcohol Use?: No Seasonal Allergies Seasonal Allergies: No Past Medical History Surgeries: Yes Abdominal (EGD, colonoscopy, esophageal dilatation), Eye Surgery (Cataracts), Gallbladder, Hysterectomy, Joint Replacement (Bilateral knees), Orthopedic (Carpal tunnel) Respiratory: No Cardiac: Yes High Cholesterol, Hypertension Neurological: Yes Neuropathy : No Reproductive Disorders: No Genitourinary: No Gastrointestinal: Yes (Esophageal strictures) Gastroesophageal Reflux Musculoskeletal: Yes Degenerate Disk Disease, Arthritis, Chronic Back Pain Loss of Vision: Right Hearing Impairment: Hard of Hearing Cancer: Yes Thyroid, Uterine Did You Recieve Any Treatments: Yes What Type of Treatment Did You: Radiation, Surgical Intervention Psychosocial: Yes Anxiety, Depression Pruritis Blood Disorders: Yes (Giant cell arteritis, myelodysplastic disorder with chronic thrombocytopeni) Adverse Reaction/Blood Tranf: No Physical Exam Vital Signs Vital Signs - First Documented 07/06/22 12:31 Temp 37.4 Pulse 99 Resp 20 B/P (MAP) 179/97 (124) Pulse Ox 96 O2 Delivery Room Air Capillary Refill : Height/Weight/BMI Height: 5'4.00" Weight: 190lbs. 0.0oz. [id number]; 32.00 BMI Method: General Appearance: WD/WN, mild distress HEENT: normal ENT inspection Neck: normal inspection Respiratory: lungs clear, normal breath sounds, no respiratory distress Cardiovascular: regular rate, rhythm, no edema, no murmur Gastrointestinal: normal bowel sounds, soft; No distended; tenderness (Mild, generalized) Extremities: normal inspection, no pedal edema Neurologic/Psychiatric: counselor aid II-XII nml as tested, no motor/sensory deficits, alert, normal mood/affect, oriented x 3 Skin: warm/dry, rash (Raised ringed pruritic lesions on the neck) Progress/Results/Core Measures Results/Orders Lab Results Laboratory Tests Test 07/06/22 12:45 07/06/22 16:10 07/06/22 16:15 Range/Units White Blood Count 5.7 4.3-11.0 10^3/uL Red Blood Count 4.30 3.80-5.11 10^6/uL Hemoglobin 11.8 11.5-16.0 g/dL Hematocrit 38 35-52 % Mean Corpuscular Volume 87 80-99 fL Mean Corpuscular Hemoglobin 27 25-34 pg Mean Corpuscular Hemoglobin Concent 32 32-36 g/dL Red Cell Distribution Width 14.9 H 10.0-14.5 % Platelet Count 55 L 130-400 10^3/uL Mean Platelet Volume 9.0-12.2 fL Immature Granulocyte % (Auto) 1 % Neutrophils (%) (Auto) 40 L 42-75 % Lymphocytes (%) (Auto) 28 12-44 % Monocytes (%) (Auto) 31 H 0-12 % Eosinophils (%) (Auto) 0 0-10 % Basophils (%) (Auto) 0 0-10 % Neutrophils # (Auto) 2.3 1.8-7.8 10^3/uL Lymphocytes # (Auto) 1.6 1.0-4.0 10^3/uL Monocytes # (Auto) 1.8 H 0.0-1.0 10^3/uL Eosinophils # (Auto) 0.0 0.0-0.3 10^3/uL Basophils # (Auto) 0.0 0.0-0.1 10^3/uL Immature Granulocyte # (Auto) 0.0 0.0-0.1 10^3/uL Neutrophils % (Manual) 44 % Lymphocytes % (Manual) 28 % Monocytes % (Manual) 26 % Reactive Lymphocytes 2 % Percent Immature Platelet Fraction 21.0 H 0.0-7.6 % Blood Morphology Comment NORMAL Sodium Level 144 135-145 MMOL/L Potassium Level 3.8 3.6-5.0 MMOL/L Chloride Level 102 98-107 MMOL/L Carbon Dioxide Level 29 21-32 MMOL/L Anion Gap 13 5-14 MMOL/L Blood Urea Nitrogen 20 H 7-18 MG/DL Creatinine 1.16 0.60-1.30 MG/DL Estimat Glomerular Filtration Rate 47 BUN/Creatinine Ratio 17 Glucose Level 110 H 70-105 MG/DL Calcium Level 10.8 H 8.5-10.1 MG/DL Corrected Calcium 10.4 H 8.5-10.1 MG/DL Total Bilirubin 0.7 0.1-1.0 MG/DL Aspartate Amino Transf (AST/SGOT) 28 5-34 U/L Alanine Aminotransferase (ALT/SGPT) 14 0-55 U/L Alkaline Phosphatase 56 40-136 U/L C-Reactive Protein High Sensitivity 0.69 H 0.00-0.50 MG/DL Total Protein 8.9 H 6.4-8.2 GM/DL Albumin 4.5 3.2-4.5 GM/DL Lipase 42 8-78 U/L Urine Color YELLOW Urine Clarity CLEAR Urine pH 7.0 5-9 Urine Specific [place] 1.015 L 1.016-1.022 Urine Protein 1+ H NEGATIVE Urine Glucose (UA) NEGATIVE NEGATIVE Urine Ketones 1+ H NEGATIVE Urine Nitrite NEGATIVE NEGATIVE Urine Bilirubin NEGATIVE NEGATIVE Urine Urobilinogen 0.2 < = 1.0 MG/DL Urine Leukocyte Esterase NEGATIVE NEGATIVE Urine RBC (Auto) TRACE-I H NEGATIVE Urine RBC RARE /HPF Urine WBC NONE /HPF Urine Crystals NONE /LPF Urine Bacteria TRACE /HPF Urine Casts NONE /LPF Urine Mucus NEGATIVE /LPF Urine Culture Indicated NO Gastric Fluid Occult Blood NEGATIVE NEGATIVE My Orders Orders - DIANA WOODARD MD Cbc With Automated Diff (07/06/22 13:00) Comprehensive Metabolic Panel (07/06/22 13:00) Hs C Reactive Protein (07/06/22 13:00) Ua Culture If Indicated (07/06/22 13:00) Ed Iv/Invasive Line Start (07/06/22 13:00) Manual Differential (07/06/22 12:45) Ondansetron Injection (Zofran Injectio (07/06/22 13:30) Lactated Ringers (Lr 1000 Ml Iv Solution (07/06/22 13:30) Ct Abdomen/Pelvis W (07/06/22 13:21) Lipase (07/06/22 13:21) Iohexol Injection (Omnipaque 350 Mg/Ml 1 (07/06/22 13:45) Received Contrast (Hold Metformin- Contr (07/06/22 13:45) Ns (Ivpb) (Sodium Chloride 0.9% Ivpb Bag (07/06/22 13:45) Occult Blood,Gastric Fluid (07/06/22 16:12) Ondansetron Injection (Zofran Injectio (07/06/22 16:15) Pantoprazole Injection (Protonix Injecti (07/06/22 16:45) Ns Iv 500 Ml (Sodium Chloride 0.9%) (07/06/22 17:30) Promethazine Injection (Phenergan Injec (07/06/22 17:30) Medications Given in ED Current Medications Medications Dose Ordered Sig/Jenniffer Route Start Time Stop Time Status Last Admin Dose Admin Iohexol 100 ml ONCE ONCE IV 07/06/22 13:45 07/06/22 13:46 DC 07/06/22 14:47 79 ML Lactated Ringer's 1,000 ml @ 0 mls/hr Q0M ONCE IV 07/06/22 13:30 07/06/22 13:31 DC 07/06/22 13:44 1,000 MLS/HR Ondansetron HCl 4 mg ONCE ONCE IVP 07/06/22 16:15 07/06/22 16:16 DC 07/06/22 16:33 4 MG Ondansetron HCl 8 mg ONCE ONCE IVP 07/06/22 13:30 07/06/22 13:31 DC 07/06/22 13:44 8 MG Pantoprazole 80 mg ONCE ONCE IV 07/06/22 16:45 07/06/22 16:46 DC 07/06/22 16:38 80 MG Promethazine HCl 12.5 mg ONCE ONCE IVP 07/06/22 17:30 07/06/22 17:31 DC 07/06/22 17:37 12.5 MG Sodium Chloride 100 ml ONCE ONCE IV 07/06/22 13:45 07/06/22 13:46 DC 07/06/22 14:47 80 ML Sodium Chloride 500 ml @ 0 mls/hr Q0M ONCE IV 07/06/22 17:30 07/06/22 17:31 DC 07/06/22 17:37 1,000 MLS/HR Vital Signs/I&O 07/06/22 12:31 Temp 37.4 Pulse 99 Resp 20 B/P (MAP) 179/97 (124) Pulse Ox 96 O2 Delivery Room Air Blood Pressure Mean: 90 Progress Progress Note : Time: 17:54 Progress Note Patient was treated with Zofran and IV fluids. She vomited some dark brown emesis which was sent for gastric occult blood testing. Protonix 80 mg IV was administered. Gastric occult test was negative. Patient had a few other episodes of small-volume emesis. CT of the abdomen and pelvis was obtained revealing a large hiatal hernia with question of volvulus. This was discussed with Dr. Newsome. He recommended conservative therapy initially with PPI, clear liquid diet, and medications for symptom control. Patient had refractory nausea and vomiting after Zofran. Phenergan is being administered for additional nausea control. Patient is being admitted for further treatment and evaluation. Dr. Steiner excepts admission. I discussed CODE STATUS and she requests full code at this time. Diagnostic Imaging Diagonstic Imaging: Xray Plain Films/CT/US/NM/MRI: abdomen, pelvis Comments CT abdomen pelvis viewed by me and report reviewed. See report below: NAME: JULIO CHERRY [facility] REC#: [id number] PT STATUS: REG ER : 1940 PHYSICIAN: DIANA WOODARD MD ADMIT DATE: 07/06/22/ER Draft Date of Exam:07/06/22 CT ABDOMEN/PELVIS W PROCEDURE: CT abdomen and pelvis with contrast. TECHNIQUE: Multiple contiguous axial images were obtained through the abdomen and pelvis after administration of intravenous contrast. Auto Exposure Controls were utilized during the CT exam to meet ALARA standards for radiation dose reduction. All CT scans use one or more of the following dose optimizing techniques: automated exposure control, MA and/or KvP adjustment based on patient size and exam type or iterative reconstruction. INDICATION: Abdominal pain and emesis CT imaging of the abdomen and pelvis is performed without previous study for comparison. There is mild dependent atelectasis and/or pneumonitis in the lung bases. There is large hiatal hernia with fluid distention of the stomach. Possibility of volvulus at the hiatal hernia is not fully excluded. Duodenum is decompressed. Gallbladder surgically absent. No focal hepatic or splenic abnormality is identified. No definite pancreatic or adrenal gland abnormality is seen. There is a dominant cyst in the lower pole of the right kidney. Kidneys otherwise unremarkable.. There is no evidence of free fluid within the abdomen or pelvis. Unopacified bladder is unremarkable. There is dense calcification surrounding the bladder base and proximal urethra without bladder dilatation to suggest obstruction. IMPRESSION: Fluid distention of stomach with possible volvulus at the level of large hiatal. Clinical correlation is recommended. This could be assessed with endoscopy or possible upper gastrointestinal series. Otherwise, no definite acute abnormality is identified within the abdomen or pelvis. Dictated on workstation # [id number] Dict: 07/06/22 1451 Trans: 07/06/22 1457 [place] [id number] Interpreted by: ANGELICA ALBA MD Departure Communication (Admissions) Time/Spoke to Admitting Phy: 17:39 Dr. Steiner Time/Spoke to Consulting Phy: 17:05 Dr. Newsome Impression Primary Impression: Nausea and vomiting Qualified Codes: R11.2 - Nausea with vomiting, unspecified Additional Impressions: Hiatal hernia Abdominal pain Qualified Codes: R10.84 - Generalized abdominal pain Disposition: 01 HOME, SELF-CARE Condition: Stable Admissions Decision to Admit Reason: Admit from ER (General) Decision to Admit/Date: Jul 06, 2022 Time/Decision to Admit Time: 17:05 Departure-Patient Inst. Referrals: DEONNA STEINER DO (PCP) Primary Care Physician DIANA WOODARD MD Jul 06, 2022 17:30
[2022-07-06] MEDS ORDERED: diphenhydrAMINE 25 MG TAB (BENADRYL) PO PRN (18:30)
[2022-07-06] MEDS ORDERED: LACTULOSE SYRUP 10GM/15ML (ENULOSE) 30ML UDC PO PRN (18:30)
[2022-07-06] MEDS ORDERED: ACETAMINOPHEN 325 MG TABLET PO PRN (18:30)
[2022-07-06] MEDS ORDERED: hydrALAZINE (APESOLINE) 20 MG/ML VIAL IV PRN (18:30)
[2022-07-06] MEDS ORDERED: MILK OF MAGNESIA 400 MG/5 ML 30 ML UDC PO PRN (18:30)
[2022-07-06] MEDS ORDERED: CALCIUM CARBONATE 500 MG (TUMS) TAB.CHEW PO PRN (18:30)
[2022-07-06] MEDS ORDERED: NALOXONE 0.4 MG/ML 1 ML (NARCAN) VIAL IV PRN (18:30)
[2022-07-06] MEDS ORDERED: ONDANSETRON 4 MG (ZOFRAN) ORAL DISSOLVE TAB PO PRN (18:30)
[2022-07-06] MEDS ORDERED: polyethylene glycoL POWDER 17 GM (MIRALAX) PACK PO PRN (18:30)
[2022-07-06] MEDS ORDERED: inSUlin ASPART (NovoLOG) 1 UNIT/0.01 ML (CHARGE PER UNIT) SC PRN (18:30)
[2022-07-06] MEDS ORDERED: ANTACID SUSP 30 ML UDC (MYLANTA) PO PRN (18:30)
[2022-07-06] MEDS ORDERED: BISACODYL 10 MG SUPP (DULCOLAX) PR PRN (18:30)
[2022-07-06] MEDS ORDERED: HYDROmorphone 2 MG/ML VIAL (DILAUDID) IV PRN (18:30)
[2022-07-06] MEDS ORDERED: HYDROmorphone 2 MG/ML VIAL (DILAUDID) ONE (18:46)
[2022-07-06] MEDS ORDERED: NS IV 1000 ML 1,000 ML ONE (18:48)
[2022-07-06 19:00] VITALS: BP 168/81
[2022-07-06] MEDS: NS IV 1000 ML 1,000 ML IV SCH (19:04)
[2022-07-06 19:55] VITALS: BP 179/97
[2022-07-06] MEDS ORDERED: RT-ALBUTEROL SULF 2.5 MG/3 ML PRE-MIX VIAL INH PRN (20:15)
[2022-07-06] MEDS: HYDROCORTISONE 100 MG/2 ML (Solu-CORTEF) VIAL IV SCH (21:33)
[2022-07-06] MEDS: PANTOPRAZOLE 40 MG (PROTONIX) VIAL IV SCH (21:33)
[2022-07-06] MEDS: SENNOSIDES 8.6 MG (SENOKOT) TAB PO SCH (21:34)
[2022-07-06] MEDS: DOCUSATE SODIUM 100 MG (COLACE) CAP PO SCH (21:34)
[2022-07-06] MEDS: diphenhydrAMINE 50 MG/ML INJ (BENADRYL) IVP PRN (21:35)
[2022-07-06 23:57] VITALS: BP 148/82
[2022-07-07 03:32] VITALS: BP 161/90
[2022-07-07] MEDS: NS IV 1000 ML 1,000 ML IV SCH ×2 (03:45→15:25)
[2022-07-07] MEDS: diphenhydrAMINE 50 MG/ML INJ (BENADRYL) IVP PRN ×4 (03:45→21:57)
[2022-07-07] MEDS: ONDANSETRON 4 MG/2 ML (SDV) Z0FRAN IV PRN ×2 (04:58→10:09)
[2022-07-07] MEDS ORDERED: SCOPOLAMINE 1.5 MG (TRANSDERM-SCOP) PATCH TD ONE (06:15)
[2022-07-07] MEDS ORDERED: PROCHLORPERAZINE 10 MG/2ML INJ (COMPAZINE) IV PRN (06:15)
[2022-07-07] MEDS ORDERED: METOCLOPRAMIDE INJ 10 MG/2 ML (REGLAN) IVP PRN (06:15)
[2022-07-07 07:04] LABS: BASOPHILS % (AUTO) 0 % (0-10); EOSINOPHILS % (AUTO) 0 % (0-10)
[2022-07-07 07:05] LABS: HEMATOCRIT 37 % (35-52); HEMOGLOBIN 11.4 g/dL (11.5-16.0); LYMPHOCYTES % (AUTO) 12 % (12-44); MEAN CORPUSCULAR HEMOGLOBIN 28 pg (25-34); MEAN CORPUSCULAR HGB CONC 31 g/dL (32-36); MEAN CORPUSCULAR VOLUME 89 fL (80-99); MONOCYTES # (AUTO) 2.1 10^3/uL (0.0-1.0); MONOCYTES % (AUTO) 24 % (0-12); NEUTROPHILS # (AUTO) 5.4 10^3/uL (1.8-7.8); NEUTROPHILS % (AUTO) 64 % (42-75); PLATELET COUNT 47 10^3/uL (130-400); WHITE BLOOD COUNT 8.5 10^3/uL (4.3-11.0)
[2022-07-07 07:17] LABS: ALBUMIN 4.1 GM/DL (3.2-4.5)
[2022-07-07 07:18] LABS: POTASSIUM 3.7 MMOL/L (3.6-5.0)
[2022-07-07 07:19] LABS: CALCIUM 9.5 MG/DL (8.5-10.1)
[2022-07-07 07:22] LABS: BILIRUBIN,TOTAL 0.7 MG/DL (0.1-1.0)
[2022-07-07 07:24] LABS: CREATININE SERUM 1.11 MG/DL (0.60-1.30)
[2022-07-07 07:36] VITALS: BP 148/91
--- NOTE | 2022-07-07 07:54 | History & Physical ---
History of Present Illness HPI/Chief Complaint CC: Refractory N/V HPI: This is an 82yoWF clinic patient of mine who presented to the ER yesterday with severe mid-epigastric pain with refractory N/V. Hiatal hernia noted on w/u so she was admitted for IVF and PPI IV and CLD and supportive care with Dr Newsome consultation. Zofran was added scheduled and pain meds have been altered to her daughter's specifications. Heating pad was added and Diclofenac gel added. Source: patient, family Exam Limitations: no limitations Date Seen 07/07/22 Time Seen by a Provider: 11:00 Attending Physician Patti Steiner DO PCP Admitting Physician: Patti Steiner DO Attending Physician: Patti Steiner DO Referring Physician Date of Admission Jul 06, 2022 at 18:17 Home Medications & Allergies Home Medications Reviewed patient Home Medication Reconciliation performed by pharmacy medication reconciliations science technician and/or nursing. Patients Allergies have been reviewed. Allergies Allergies Coded Allergies Penicillins (Verified Allergy, Unknown, RASH, 05/09/17) Sulfa (Sulfonamide Antibiotics) (Verified Allergy, Unknown, RASH, 05/09/17) azithromycin (Verified Allergy, Unknown, RASH, 05/09/17) cephalexin (Verified Allergy, Unknown, RASH, 05/09/17) clindamycin (Verified Allergy, Unknown, 07/06/22) naproxen (Verified Adverse Reaction, Unknown, 05/09/17) HEADACHE Past Pitwvnq-Lwqooz-Pcwqib Hx Past Med/Social Hx: Reviewed Nursing Past Med/Soc Hx, Reviewed and Corrections made Patient Social History Marrital Status: Employed/Student: retired Smoking Status: Never a Smoker Recent Foreign Travel: No Contact w/other who traveled: No Recent Hopitalizations: No Immunizations Up To Date Date of Pneumonia Vaccine: Oct 27, 2013 Seasonal Allergies Seasonal Allergies: No Past Medical History Surgeries: Abdominal (EGD, colonoscopy, esophageal dilatation), Eye Surgery (Cataracts), Gallbladder, Hysterectomy, Joint Replacement (Bilateral knees), Orthopedic (Carpal tunnel) Cardiac: High Cholesterol, Hypertension Neurological: Neuropathy : No Reproductive: No Gastrointestinal: Gastroesophageal Reflux Musculoskeletal: Degenerate Disk Disease, Arthritis, Chronic Back Pain Loss of Vision: Right Hearing Impairment: Hard of Hearing Cancer: Thyroid, Uterine Did You Recieve Any Treatments: Yes What Type of Treatment Did You: Radiation, Surgical Intervention Psychosocial: Anxiety, Depression Skin/Integumentary: Pruritis History of Blood Disorders: Yes (Giant cell arteritis, myelodysplastic disorder with chronic thrombocytopeni) Adverse Reaction to Blood Schaefer: No Review of Systems Constitutional: see HPI, malaise, weakness EENTM: no symptoms reported Respiratory: no symptoms reported Cardiovascular: no symptoms reported Gastrointestinal: abdominal pain, loss of appetite, nausea, vomiting Genitourinary: no symptoms reported Musculoskeletal: no symptoms reported Skin: no symptoms reported Psychiatric/Neurological: No Symptoms Reported All Other Systems Reviewed Negative Unless Noted: Yes Physical Exam Physical Exam Vital Signs Vital Signs - First Documented 07/06/22 07/06/22 07/07/22 12:31 19:55 07:13 Temp 37.4 Pulse 99 Resp 20 B/P (MAP) 179/97 (124) Pulse Ox 96 O2 Delivery Room Air O2 Flow Rate 0.00 FiO2 21 Capillary Refill : Height, Weight, BMI Height: 5'4.00" Weight: 190lbs. 0.0oz. 86.684598qt; 32.00 BMI Method: General Appearance: WD/WN, Anxious, Chronically ill, Mild Distress, Obese Eyes: Bilateral Eye Normal Inspection, Bilateral Eye PERRL HEENT: PERRL/EOMI, Normal ENT Inspection, Pharynx Normal Neck: Full Range of Motion, Normal Inspection, Non Tender, Supple, Carotid Bruit Respiratory: Chest Non Tender, Lungs Clear, Normal Breath Sounds, No Accessory Muscle Use, No Respiratory Distress Cardiovascular: Regular Rate, Rhythm, No Edema, No Gallop, No JVD, No Murmur, Normal Peripheral Pulses Gastrointestinal: Normal Bowel Sounds, No Organomegaly, No Pulsatile Mass, Non Tender, Soft Back: Normal Inspection, No CVA Tenderness, No Vertebral Tenderness Extremity: Normal Capillary Refill, Normal Inspection, Normal Range of Motion, Non Tender, No Calf Tenderness, No Pedal Edema Neurologic/Psychiatric: Alert, Oriented x3, No Motor/Sensory Deficits, Normal Mood/Affect Skin: Normal Color, Warm/Dry Lymphatic: No Adenopathy Results Results/Procedures Labs Laboratory Tests 07/06/22 12:45 07/07/22 06:55 Patient resulted labs reviewed. Assessment/Plan Admission Diagnosis Assessment: Refractory N/V with gastritis of HH Giant cell arteritis on Prednisone 5mg daily HTN CKD Myelodysplastic syndrome managed by Dr Gordillo HLP Cardiac murmur managed by Dr Butt Plan: Anti-emetics Monitor pain Appreciate Dr Newsome Admission Status: Inpatient Order (span 2 midnights) Reason for Inpatient Admission: severe N/V from acute gastritis of Clinical Quality Measures DVT/VTE Risk/Contraindication: Contraindications-Pharm: Other *list below* Other: low plts PATTI STEINER DO Jul 07, 2022 07:54
[2022-07-07] MEDS: PANTOPRAZOLE 40 MG (PROTONIX) VIAL IV SCH ×2 (10:09→19:48)
[2022-07-07] MEDS: DOCUSATE SODIUM 100 MG (COLACE) CAP PO SCH ×2 (10:09→19:49)
[2022-07-07] MEDS: SENNOSIDES 8.6 MG (SENOKOT) TAB PO SCH ×2 (10:09→19:50)
[2022-07-07] MEDS: HYDROCORTISONE 100 MG/2 ML (Solu-CORTEF) VIAL IV SCH ×2 (10:09→19:49)
[2022-07-07 12:00] VITALS: BP 148/86
[2022-07-07] MEDS ORDERED: fentaNYL INJ 100 MCG/2 ML AMP IVP PRN (12:30)
[2022-07-07] MEDS: DICLOFENAC 1% GEL 100 GM (VOLTAREN) TUBE TOP SCH ×3 (13:50→19:50)
--- NOTE | 2022-07-07 14:09 | CONSULTATION REPORT ---
DATE OF SERVICE: 07/07/2022 ATTENDING PRIMARY CARE PHYSICIAN: Dr. Calderon. HISTORY OF PRESENT ILLNESS: The patient is an 82-year-old female, who presented to the emergency room with nausea and vomiting as well as what appeared to be a dark coffee-ground emesis material. She states that she was eating cereal and developed a crampy abdominal pain and this was followed by the nausea and vomiting. Since that time, she states that she has had persistent nausea and vomiting and even liquids as well as medications cause her to have nausea and dry heaving. The patient does have a history of gastroesophageal reflux disease, peptic ulcer disease as well as a significant size hiatal hernia. She reports that she has not noticed any red blood per rectum as well as no dark tarry stools. PAST MEDICAL HISTORY: Hypercholesterolemia, hypertension, neuropathy, gastroesophageal reflux disease, history of hiatal hernia, degenerative joint disease, history of giant cell arteritis, and chronic thrombocytopenia. PAST SURGICAL HISTORY: Bilateral eye surgeries, hysterectomy, cholecystectomy, bilateral knee arthroplasty, and carpal tunnel release. ALLERGIES: PENICILLIN, SULFA, AZITHROMYCIN, CEPHALEXIN, CLINDAMYCIN, and NAPROXEN. MEDICATIONS: Alprazolam 0.5 mg p.r.n., gabapentin 300 mg t.i.d., levothyroxine 112 mcg daily, losartan 100 mg daily, metoprolol 25 mg daily, mirabegron 50 mg daily, rabeprazole 20 mg daily, Rosuvastatin 10 mg daily, and tramadol 50 mg p.r.n. SOCIAL HISTORY: Negative smoke, negative alcohol. FAMILY HISTORY: Noncontributory. REVIEW OF SYSTEMS: This is a well-nourished female currently mildly guarded secondary to the nausea; however, does not currently having any episodes of vomiting. She reports that with her emesis is dark material, her and her daughter do not report any fresh red blood. No red blood per rectum, no dark tarry stools. She does have crampy abdominal pain on an intermittent basis. No fever, chills, no recent inadvertent weight loss. All other review of systems negative. PHYSICAL EXAMINATION: VITAL SIGNS: Temperature is 36.6, blood pressure 148/86, pulse 95, respirations 18, and pulse ox 93% on room air. CHEST: Clear. Good breath sounds bilaterally. HEART: Regular, no murmurs. EXTREMITIES: No lower extremity edema and negative Homans sign. HEENT: No scleral icterus. NECK: No cervical lymphadenopathy. ABDOMEN: Soft and nondistended. There is mild discomfort in the epigastric region on deep palpation. No palpable hernias. SKIN: Warm and dry. LABORATORY DATA: WBC 8.5, hemoglobin 11.4, hematocrit 37, and platelets 47. BUN is 18 and creatinine 1.11. ASSESSMENT AND PLAN: An 82-year-old female with persistent nausea and vomiting as well as episode of possible hematemesis and history of gastroesophageal reflux disease as well as a significant size hiatal hernia. We will proceed with medical management with PPI acid reducers as well as IV hydration. We will also proceed with different antinausea medications. On this admission, we will also proceed with an EGD as well as biopsies as appropriate. Job ID: [id number] DocumentID: [id number] Dictated Date: 07/07/2022 13:46:23 Woodworker Helper Date: 07/07/2022 14:08:12 Dictated By: MARCOS GARCIA MD
[2022-07-07] MEDS: ONDANSETRON 4 MG/2 ML (SDV) Z0FRAN IVP SCH ×2 (15:24→19:49)
[2022-07-07 16:14] VITALS: BP 113/56
[2022-07-07 19:44] VITALS: BP 132/63
[2022-07-07 23:34] VITALS: BP 119/62
[2022-07-08] MEDS: ONDANSETRON 4 MG/2 ML (SDV) Z0FRAN IVP SCH ×6 (00:10→19:41)
[2022-07-08] MEDS: NS IV 1000 ML 1,000 ML IV SCH ×2 (02:58→15:29)
[2022-07-08 03:32] VITALS: BP 120/72
[2022-07-08] MEDS: diphenhydrAMINE 50 MG/ML INJ (BENADRYL) IVP PRN ×2 (04:15→16:45)
[2022-07-08 05:55] LABS: BASOPHILS % (AUTO) 0 % (0-10); EOSINOPHILS % (AUTO) 0 % (0-10); HEMATOCRIT 27 % (35-52); HEMOGLOBIN 8.3 g/dL (11.5-16.0); MEAN CORPUSCULAR HEMOGLOBIN 28 pg (25-34); MEAN CORPUSCULAR HGB CONC 31 g/dL (32-36); MEAN CORPUSCULAR VOLUME 89 fL (80-99)
[2022-07-08 05:57] LABS: LYMPHOCYTES % (AUTO) 6 % (12-44); MEAN PLATELET VOLUME 13.9 fL (9.0-12.2); MONOCYTES # (AUTO) 0.7 10^3/uL (0.0-1.0); MONOCYTES % (AUTO) 4 % (0-12); NEUTROPHILS # (AUTO) 14.9 10^3/uL (1.8-7.8); NEUTROPHILS % (AUTO) 88 % (42-75); PLATELET COUNT 42 10^3/uL (130-400); WHITE BLOOD COUNT 16.9 10^3/uL (4.3-11.0)
[2022-07-08 06:19] LABS: ALBUMIN 3.5 GM/DL (3.2-4.5); BILIRUBIN,TOTAL 0.5 MG/DL (0.1-1.0); CALCIUM 8.5 MG/DL (8.5-10.1); CREATININE SERUM 1.04 MG/DL (0.60-1.30); POTASSIUM 3.8 MMOL/L (3.6-5.0); TOTAL PROTEIN 6.8 GM/DL (6.4-8.2)
[2022-07-08 06:20] LABS: ATYPICAL LYMPHOCYTES 1 %; BAND NEUTROPHILS 8 %; LYMPHOCYTES % (MANUAL) 7 %; MONOCYTES % (MANUAL) 2 %; NEUTROPHILS % (MANUAL) 82 %
[2022-07-08 06:21] LABS: PLATELET CLUMPS NONE SEEN; RBC MORPH NORMAL
[2022-07-08] MEDS: PANTOPRAZOLE 40 MG (PROTONIX) VIAL IV SCH ×2 (08:26→21:54)
[2022-07-08] MEDS: DICLOFENAC 1% GEL 100 GM (VOLTAREN) TUBE TOP SCH ×4 (08:35→21:57)
[2022-07-08] MEDS: DOCUSATE SODIUM 100 MG (COLACE) CAP PO SCH ×2 (08:35→21:58)
[2022-07-08] MEDS: SENNOSIDES 8.6 MG (SENOKOT) TAB PO SCH ×2 (08:35→21:58)
[2022-07-08 08:40] VITALS: BP 147/70
--- NOTE | 2022-07-08 10:55 | Progress Note ---
JILLIAN ROMERO 07/08/22 1055: Subjective Date Seen by a Provider: Jul 08, 2022 Time Seen by a Provider: 10:50 Subjective/Events-last exam Patient is having increased intense pruritus from medication Her N/V have been well controlled with zofran She had 3 episodes of dark colored diarrhea yesterday afternoon and evening She reports no pain today Daughter is bedside and concerned about patients new onset of delirium Was able to keep some crackers down Objective Exam Last Set of Vital Signs Vital Signs Date Time Temp Pulse Resp B/P (MAP) Pulse Ox O2 Delivery O2 Flow Rate FiO2 07/08/22 08:40 37.1 85 18 147/70 (95) 95 Room Air 07/07/22 07:13 0.00 07/06/22 19:55 21 Capillary Refill : I&O Intake and Output 07/07/22 23:59 Intake Total 225 ml Balance 225 ml Intake Oral 225 ml # Voids 9 # Bowel Movements 2 # Emeses 2 General: Alert, Cooperative, No Acute Distress HEENT: Mucous Memb Moist/[place] Neck: Supple, No JVD Lungs: Clear to Auscultation Heart: Regular Rate, No Murmurs Abdomen: Soft, No Tenderness Extremities: No Clubbing, No Edema Skin: No Breakdown, Other (Diffuse rash, worse in inginal folds and abdomen creases ) Neuro: Normal Tone, Sensation Intact Psych/Mental Status: Mental Status NL (Patient is having mild episodes of delirium when asked open ended questions) Results Lab Laboratory Tests 07/07/22 12:03: Glucometer 145H 07/07/22 15:45: Glucometer 138H 07/07/22 23:40: Glucometer 124H 07/08/22 05:22: Glucometer 106 07/08/22 05:38: White Blood Count 16.9H, Red Blood Count 2.99L, Hemoglobin 8.3#L, Hematocrit 27L , Mean Corpuscular Volume 89, Mean Corpuscular Hemoglobin 28, Mean Corpuscular Hemoglobin Concent 31L, Red Cell Distribution Width 14.9H, Platelet Count 42L, Mean Platelet Volume 13.9H, Immature Granulocyte % (Auto) 2, Neutrophils (%) (Auto) 88H, Lymphocytes (%) (Auto) 6L, Monocytes (%) (Auto) 4, Eosinophils (%) (Auto) 0, Basophils (%) (Auto) 0, Neutrophils # (Auto) 14.9H, Lymphocytes # (Auto) 1.0, Monocytes # (Auto) 0.7, Eosinophils # (Auto) 0.0, Basophils # (Auto) 0.0, Immature Granulocyte # (Auto) 0.3H, Neutrophils % (Manual) 82, Lymphocytes % (Manual) 7, Monocytes % (Manual) 2, Band Neutrophils 8, Atypical Lymphocytes 1, Clumped Platelets NONE SEEN, Percent Immature Platelet Fraction 22.1H, Blood Morphology Comment NORMAL, Sodium Level 143, Potassium Level 3.8, Chloride Level 111H, Carbon Dioxide Level 20L, Anion Gap 12, Blood Urea Nitrogen 39H, Creatinine 1.04, Estimat Glomerular Filtration Rate 53, BUN/Creatinine Ratio 38, Glucose Level 117H, Calcium Level 8.5, Corrected Calcium 8.9, Total Bilirubin 0.5, Aspartate Amino Transf (AST/SGOT) 63H, Alanine Aminotransferase (ALT/SGPT) 15, Alkaline Phosphatase 35L, Total Protein 6.8, Albumin 3.5, Procalcitonin 0.12H Assessment/Plan Assessment/Plan Assess & Plan/Chief Complaint Assessment and Plan: Acute delirium secondary to acute medical illness Acute systemic allergic rash secondary to medication-likely zofran Leukocytosis secondary to steroid use-no active sign of infection Refractory N/V with gastritis of HH Giant cell arteritis on Prednisone 5mg daily HTN CKD 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 Advise patient to take her time with her thought processing. Continue to monitor labs Consult PT Clinical Quality Measures DVT/VTE Risk/Contraindication: Contraindications-Pharm: Other *list below* Other: low plts PATTI STEINER DO 07/09/22 0602: Subjective Subjective/Events-last exam Patient is very confused and tried to educate the daughter on delirium and the fact that it will get worse before it gets better Daughter continues to refuse some meds from given to her mother as they are ordered Tried to certified genetic counselor the daughter in-depth regarding the medical management and the expected delirium considering her advanced age and different surroundings and the steroid that can cause these issues Supportive care will be continued Review of Systems General: Fatigue, Malaise Neurological: Confusion Objective Exam General: Alert, Other (confused but can orientate) Lungs: Clear to Auscultation, Normal Air Movement Heart: Regular Rate, Normal S1, Normal S2, No Murmurs Assessment/Plan Assessment/Plan Assess & Plan/Chief Complaint Delirium expected to get worse before improving Supportive care will be provided along with additional reassurance to daughter who remains at the bedside 24/7 and appears to be exhausted herself Supervisory-Addendum Brief Verification & Attestation Participated in pt care: history, MDM, physical Personally performed: exam, history, MDM, supervision of care Care discussed with: Medical Student Procedures: n/a Results interpretation: Verified all documentation Verification and Attestation of Medical Student E/M Service A medical student performed and documented this service in my presence. I reviewed and verified all information documented by the medical student and made modifications to such information, when appropriate. I personally performed the physical exam and medical decision making. Patti Steiner Jul 09, 2022,05:58 JILLIAN ROMERO Jul 08, 2022 10:55 PATTI STEINER DO Jul 09, 2022 06:02
[2022-07-08 11:31] VITALS: BP 137/65
[2022-07-08] MEDS ORDERED: CHOL200025 PO (12:28)
[2022-07-08] MEDS ORDERED: PANT40TA52 PO (12:28)
[2022-07-08] MEDS ORDERED: ZINC50TA51 PO (12:28)
[2022-07-08] MEDS ORDERED: FLUO20CA48 PO (12:28)
[2022-07-08] MEDS ORDERED: TRAM50TA3 PO (12:28)
[2022-07-08] MEDS ORDERED: ALPR0.5T7 PO (12:28)
[2022-07-08] MEDS ORDERED: PRED5TAB PO (12:28)
[2022-07-08] MEDS ORDERED: ACET-2267 PO (12:28)
[2022-07-08] MEDS ORDERED: LACT1CAP74 PO (12:28)
[2022-07-08] MEDS ORDERED: CRAN400T3 PO (12:28)
[2022-07-08] MEDS ORDERED: GABA300C PO (12:28)
[2022-07-08] MEDS ORDERED: LEVO-130 PO (12:28)
--- NOTE | 2022-07-08 12:57 | Physical Therapy Evaluation ---
PT Evaluation-General Medical Diagnosis Admission Date Jul 07, 2022 at 12:30 Medical Diagnosis: abdominal pain/hiatal hernia Onset Date: Jul 07, 2022 Therapy Diagnosis Therapy Diagnosis: generalized weakness/debility Height/Weight Height (Feet): 5 Height (Inches): 4.00 Weight (Pounds): 190 Weight (Ounces): 0.0 Precautions Precautions/Isolations: Fall Prevention, Standard Precautions Weight Bear Status Right Lower Extremity: Right Weight Bearing/Tolerated Left Lower Extremity: Left Weight Bearing/Tolerated Referral Physician: Kvng Reason for Referral: Evaluation/Treatment Medical History Pertinent Medical History: GERD, HTN, Neuropathy Current History ER secondary to vomiting and abdominal pain Reviewed History: Yes Social History Home: Single Level Current Living Status: Children Entry Into Home: Stairs With Railing PT Steps Into Home: 3 Prior Prior Level of Function SCALE: Activities may be completed with or without assistive devices. 6-Ecucvbynkm-jtyiybf completes the activity by him/herself with no assistance from a helper. 5-Set-up or Clean-up Assistance-helper sets up or cleans up; patient completes activity. [place] assists only prior to or following the activity. 4-Supervision or Touching Assistance-helper provides verbal cues and/or touching/steadying and/or contact guard assistance as patient completes activity. Assistance may be provided throughout the activity or intermittently. 3-Partial/Moderate Assistance-helper does LESS THAN HALF the effort. [place] lifts, holds or supports trunk or limbs, but provides less than half the effort. 2-Substantial/Maximal Assistance-helper does MORE THAN HALF the effort. [place] lifts or holds trunk or limbs and provides more than half the effort. 4-Qtjdrorxa-gonnzb does ALL the effort. Patient does none of the effort to complete the activity. Or, the assistance of 2 or more helpers is required for the patient to complete the activity. If activity was not attempted, code reason: 7-Patient Refused. 9-Not Applicable-not attempted and the patient did not perform the activity before the current illness, exacerbation or injury. 10-Not Attempted due to Environmental Limitations-(lack of equipment, weather restraints, etc.). 88-Not Attempted due to Medical Conditions or Safety Concerns. Bed Mobility: 6 Transfers (B,C,W/C): 6 Gait: 6 Stairs: 6 Indoor Mobility (Ambulation): Independent Stairs: Independent Prior Devices Use: Walker PT Evaluation-Current Subjective Patient reports she is very anxious and her spouse past away recently. Reluctantly agrees to PT. Family present. Pain Numeric Pain Scale: 0-No Pain Location: No Pain Reported Objective Patient Orientation: Normal For Age Attachments: IV ROM/Strength ROM Lower Extremities bilateral LE WFL Strength Lower Extremities 3-/5 grossly bilateral LE all planes Integumentary/Posture Integumentary refer to nursing notes. Bowel Incontinence: No Bladder Incontinence: No Posture WFL Neuromuscular (Tone, Coordination, Reflexes) grossly intact Sensory Vision: Functional Hearing: Functional Transfers Sit to Lying (QC): 2 Lying to Sitting/Side of Bed(Q: 3 Sit to Stand (QC): 3 Toilet Transfer (QC): 3 Gait Mode of Locomotion: Walk Anticipated Mode of Locomotion: Walk Walk 10 feet (QC): 4 Walk 50 ft with 2 Turns(QC): 4 Walk 150 ft (QC): 4 Distance: 200' Gait Assistive Device: FWW Comments/Gait Description slow and steady Balance Sitting Static: Normal Sitting Dynamic: Normal Standing Static: Good Standing Dynamic: Good Assessment/Needs 82 y.o. female, will benefit from skilled PT to address functional strength and mobility to improve current LOF to safely return to home with family at maximum LOF. Rehab Potential: Fair PT Patient Accounts Coordinator Goals Patient Accounts Coordinator Goals PT Patient Accounts Coordinator Goals Time Frame: Jul 20, 2022 Roll Left & Right (QC): 6 Sit to Lying (QC): 6 Lying-Sitting on Side/Bed(QC): 6 Sit to Stand (QC): 6 Chair/Oco-vt-Ukcja Xfer(QC): 6 Toilet Transfer (QC): 6 Walk 10 feet (QC): 6 Walk 50ft with 2 Turns (QC): 6 Walk 150 ft (QC): 6 PT Plan Problem List Problem List: Activity Tolerance, Functional Strength, Safety, Balance, Gait, Transfer, Bed Mobility Treatment/Plan Treatment Plan: Continue Plan of Care Treatment Plan: Bed Mobility, Education, Functional Activity Alfie, Functional Strength, Gait, Safety, Therapeutic Exercise, Transfers Treatment Duration: Jul 20, 2022 Frequency: 6 times per week Estimated Hrs Per Day: .25 hour per day Patient and/or Family Agrees t: Yes Time/GCodes Time In: 1102 Time Out: 1118 Total Billed Treatment Time: 16 Total Billed Treatment 1 visit EVModC 16 min PATRICIA,JANY PT Jul 08, 2022 12:57
--- NOTE | 2022-07-08 14:28 | Occupational Therapy Eval ---
OT Evaluation-General/PLF Medical Diagnosis Admission Date Jul 07, 2022 at 12:30 Medical Diagnosis: abdominal pain/hiatal hernia Onset Date: Jul 07, 2022 Therapy Diagnosis Therapy Diagnosis: decreased ADL status, confusion Height/Weight Height (Feet): 5 Height (Inches): 4.00 Weight (Pounds): 190 Weight (Ounces): 0.0 Precautions Precautions/Isolations: Fall Prevention, Standard Precautions Referral Physician: Kvng Referral Reason: Evaluation/Treatment Medical History Pertinent Medical History: GERD, HTN, Neuropathy Current History ED 07/06 with severe mid-epigastic pain with refractory n/v, hiatal hernia noted. Admit for IVF, PPI IV, CLD, and supportive care. Social History Home: Single Level Current Living Status: Children Entry Into Home: Stairs With Railing Steps Into Home: 3 ADL-Prior Level of Function SCALE: Activities may be completed with or without assistive devices. 2-Zgzsbhiizs-ibfznuz completes the activity by him/herself with no assistance from a helper. 5-Set-up or Clean-up Assistance-helper sets up or cleans up; patient completes activity. [place] assists only prior to or following the activity. 4-Supervision or Touching Assistance-helper provides verbal cues and/or touching/steadying and/or contact guard assistance as patient completes activity. Assistance may be provided throughout the activity or intermittently. 3-Partial/Moderate Assistance-helper does LESS THAN HALF the effort. [place] lifts, holds or supports trunk or limbs, but provides less than half the effort. 2-Substantial/Maximal Assistance-helper does MORE THAN HALF the effort. [place] lifts or holds trunk or limbs and provides more than half the effort. 8-Hyjyesmrj-gmqzsx does ALL the effort. Patient does none of the effort to complete the activity. Or, the assistance of 2 or more helpers is required for the patient to complete the activity. If activity was not attempted, code reason: 7-Patient Refused. 9-Not Applicable-not attempted and the patient did not perform the activity before the current illness, exacerbation or injury. 10-Not Attempted due to Environmental Limitations-(lack of equipment, weather restraints, etc.). 88-Not Attempted due to Medical Conditions or Safety Concerns. ADL PLOF Comments Pt unable to provide accurate information about PLOF, pt's family corrected pt's incorrect information. Family report pt was independent with ADLs and functional mobility using FWW. She had no cognitive deficits prior. They have a walk in shower with [place] Self Care: Independent Functional Cognition: Independent DME/Equipment: Bath Chair, Shower DME/Equipment Comments walker OT Current Status Subjective Pt in recliner, agreeable to OT Tx. Pt's daughter tearful during tx, stating this isn't normal for her mother, her mother is more confused and is unable to accurately answer questions, often talking about random topics unrelated to questions asked. Mental Status/Objective Patient Orientation: Person, Confused Attachments: IV Current Upper Extremity ROM WFL Upper Extremity Strength grossly 3/5 ADL-Treatment Eating (QC): 5 (set up to open containers, this is baseline per family.) Oral Hygiene (QC): 4 (Per clinical judgment, pt would require supervision seated.) On/Off Footwear (QC): 3 (Pt able to doff socks with cues, mod A with donning socks.) Other Treatments Pt in recliner, attempted to provide information about PLOF And home set up, but had difficulty answering questions. Pt's family provided answers to OT's questions. Pt able to doff bilateral gripper socks with VCs. Pt attempted to don by bending forward but report difficulty due to stomach issues she has had lately. OT assisted pt in bringing LEs into figure 4 position, then pt able to don with mod A. Pt able to eat lunch after set up assistance. OT informed family and pt about OT POC while she is admitted, they verbalize understanding. Post tx, pt in recliner, call light in reach and all needs met. Education OT Patient Education: Correct positioning, Energy conservation, Modified ADL techniques, Progress toward Goal/Update tx plan, Purpose of tx/functional activities Teaching Recipient: Patient Teaching Methods: Discussion Response to Teaching: Verbalize Understanding OT Penitentiary Goals Penitentiary Goals Time Frame: Jul 26, 2022 Eating (QC): 5 Oral Hygiene (QC): 5 Toileting Hygiene (QC): 4 Shower/Bathe Self (QC): 4 Upper Body Dressing (QC): 5 Lower Body Dressing (QC): 4 On/Off Footwear (QC): 4 Additional Goals: 1-Demonstrate ADL Tasks, 2-Verbalize Understanding, 3- ImproveStrength/Alfie 1=Demonstrate adherence to instructed precautions during ADL tasks. 2=Patient will verbalize/demonstrate understanding of assistive devices/modifications for ADL. 3=Patient will improve strength/tolerance for activity to enable patient to perform ADL's. OT Education/Plan Problem List/Assessment Assessment: Decreased Activ Tolerance, Decreased Safety Aware, Decreased UE Strength, Impaired Cognition, Impaired Coordination, Impaired Funct Balance, Impaired I ADL's, Impaired Self-Care Skills Discharge Recommendations Plan/Recommendations: Continue POC Treatment Plan/Plan of Care Patient would benefit from OT for education, treatment and training to promote independence in ADL's, mobility, safety and/or upper extremity function for A DL's. Plan of Care: ADL Retraining, Functional Mobility, UE Funct Exercise/Act Treatment Duration: Jul 26, 2022 Frequency: 3 times per week (3-5 times per week) Rehab Potential: Fair Time/GCodes Start Time: 13:54 Stop Time: 14:05 Total Time Billed (hr/min): 11 Billed Treatment Time 1, DOROTHY GOODSON OT Jul 08, 2022 14:28
[2022-07-08 15:49] VITALS: BP 146/67
--- NOTE | 2022-07-08 18:36 | Progress Note ---
Subjective Date Seen by a Provider: Jul 08, 2022 Time Seen by a Provider: 18:00 Subjective/Events-last exam doing better with nausea today. family states some confusion likely secondary to pain meds. Hb stable. Objective Exam Vital Signs Date Time Temp Pulse Resp B/P (MAP) Pulse Ox O2 Delivery O2 Flow Rate FiO2 07/08/22 15:49 37.2 79 17 146/67 (93) 96 Room Air 07/08/22 11:31 37.0 70 18 137/65 (89) 96 Room Air 07/08/22 10:50 93 Room Air 07/08/22 08:40 37.1 85 18 147/70 (95) 95 Room Air 07/08/22 08:00 Room Air 07/08/22 03:32 37.1 78 18 120/72 (88) 94 Room Air 07/07/22 23:34 36.9 84 18 119/62 (81) 94 Room Air 07/07/22 20:00 Room Air 07/07/22 19:44 36.9 96 17 132/63 (86) 97 Room Air 07/07/22 19:19 Room Air I & O 07/08/22 07:00 Intake Total 625 ml Balance 625 ml Capillary Refill : General Appearance: No Apparent Distress HEENT: PERRL/EOMI Neck: Full Range of Motion Respiratory: Chest Non Tender, Lungs Clear, Normal Breath Sounds Cardiovascular: Regular Rate, Rhythm Gastrointestinal: normal bowel sounds, soft, tenderness Extremity: Normal Capillary Refill Neurologic/Psychiatric: Disoriented Skin: Normal Color Lymphatic: No Adenopathy Results Lab Laboratory Tests 07/07/22 23:40: Glucometer 124H 07/08/22 05:22: Glucometer 106 07/08/22 05:38: White Blood Count 16.9H, Red Blood Count 2.99L, Hemoglobin 8.3#L, Hematocrit 27L , Mean Corpuscular Volume 89, Mean Corpuscular Hemoglobin 28, Mean Corpuscular Hemoglobin Concent 31L, Red Cell Distribution Width 14.9H, Platelet Count 42L, Mean Platelet Volume 13.9H, Immature Granulocyte % (Auto) 2, Neutrophils (%) (Auto) 88H, Lymphocytes (%) (Auto) 6L, Monocytes (%) (Auto) 4, Eosinophils (%) (Auto) 0, Basophils (%) (Auto) 0, Neutrophils # (Auto) 14.9H, Lymphocytes # (Auto) 1.0, Monocytes # (Auto) 0.7, Eosinophils # (Auto) 0.0, Basophils # (Auto) 0.0, Immature Granulocyte # (Auto) 0.3H, Neutrophils % (Manual) 82, Lymphocytes % (Manual) 7, Monocytes % (Manual) 2, Band Neutrophils 8, Atypical Lymphocytes 1, Clumped Platelets NONE SEEN, Percent Immature Platelet Fraction 22.1H, Blood Morphology Comment NORMAL, Sodium Level 143, Potassium Level 3.8, Chloride Level 111H, Carbon Dioxide Level 20L, Anion Gap 12, Blood Urea Nitrogen 39H, Creatinine 1.04, Estimat Glomerular Filtration Rate 53, BUN/Creatinine Ratio 38, Glucose Level 117H, Calcium Level 8.5, Corrected Calcium 8.9, Total Bilirubin 0.5, Aspartate Amino Transf (AST/SGOT) 63H, Alanine Aminotransferase (ALT/SGPT) 15, Alkaline Phosphatase 35L, Total Protein 6.8, Albumin 3.5, Procalcitonin 0.12H 07/08/22 11:00: Glucometer 103 07/08/22 17:59: Glucometer 112H Assessment/Plan Assessment/Plan Assess & Plan/Chief Complaint persistent nausea/vomiting and anemia with hx GERD and hiatal hernia cont medical management for now with PPI and anti-nausea meds. EGD scheduled for tomorrow. Clinical Quality Measures DVT/VTE Risk/Contraindication: Contraindications-Pharm: Other *list below* Other: low plts MARCOS GARCIA MD Jul 08, 2022 18:36
--- NOTE | 2022-07-08 18:37 | Progress Note-Pre Operative ---
Pre-Operative Progress Note Date of Available H&P: Jul 08, 2022 Date H&P Reviewed: Jul 08, 2022 Time H&P Reviewed: 19:00 History & Physical: No changes noted Pre-Operative Diagnosis: persistent nausea vomiting, coffee ground emesis MARCOS GARCIA MD Jul 08, 2022 18:37
[2022-07-08] MEDS: MELATONIN 3 MG TABLET PO PRN (19:41)
[2022-07-08 20:00] VITALS: BP 162/75
[2022-07-08] MEDS ORDERED: LORazepam 0.5 MG (ATIVAN) TABLET PO PRN (21:15)
[2022-07-09] VITALS (7 sets, daily range): BP systolic 126–171; BP diastolic 74–85
[2022-07-09] MEDS: ONDANSETRON 4 MG/2 ML (SDV) Z0FRAN IVP SCH ×2 (00:22→04:40)
[2022-07-09] MEDS: NS IV 1000 ML 1,000 ML IV SCH ×3 (02:30→20:22)
[2022-07-09] MEDS: diphenhydrAMINE 50 MG/ML INJ (BENADRYL) IVP PRN ×3 (02:58→23:15)
[2022-07-09] MEDS ORDERED: ONDANSETRON 4 MG/2 ML (SDV) Z0FRAN IVP PRN (05:00)
[2022-07-09 06:50] LABS: BILIRUBIN,URINE NEGATIVE (NEGATIVE); CLARITY,URINE CLEAR; COLOR,URINE YELLOW; GLUCOSE, URINE (UA) NEGATIVE (NEGATIVE); KETONES,URINE NEGATIVE (NEGATIVE); NITRITE,URINE POSITIVE (NEGATIVE); PROTEIN,URINE TRACE (NEGATIVE)
[2022-07-09 06:51] LABS: BACTERIA,URINE LARGE /HPF; LEUKOCYTE ESTERASE ,URINE 3+ (NEGATIVE); SQUAMOUS EPITHELIAL CELL,UR 0-2 /HPF
--- NOTE | 2022-07-09 08:29 | Diagnostic Imaging Report ---
CLINICAL INDICATION: Patient with confusion and abdominal pain. Exam: Axial CT scan of the brain without IV contrast with coronal and sagittal reformatted images. Auto Exposure Controls were utilized during the CT exam to meet ALARA standards for radiation dose reduction. Comparison: CT scan of the head with and without contrast dated 05/08/2017. Findings: There is no evidence of acute cerebral infarct, intracranial hemorrhage, or gross mass effect. The brain parenchymal volume appears appropriate for patient's age. There are patchy confluent areas of low-density white matter changes involving both cerebral hemispheres, likely representing chronic small vessel ischemic disease and leukoaraiosis, which has not significantly changed. There is normal garcía-white matter distinction. There is no significant midline shift or herniation. There is no evidence of hydrocephalus. The basal cisterns are unremarkable. The skull, extracranial soft tissue, and orbits are unremarkable. There is small to moderate amount of mucosal thickening and/or fluid involving the sphenoid sinus. Temporal bones show no significant abnormality. Impression: There is no CT evidence of acute intracranial process. Dictated by: Dictated on workstation # [id number]
--- NOTE | 2022-07-09 08:35 | Diagnostic Imaging Report ---
INDICATION: Confusion and pain. COMPARISON: Abdominal/pelvic CT of 07/06/2022. FINDINGS: The bowel gas pattern is unremarkable. There is no abnormal fecal loading. Leftward convexity degenerative lumbar rotoscoliotic curvature and a retrocardiac hernia are chronic. There are clips at the gallbladder fossa as well as pelvic phleboliths. No suspicious appearing calcifications. IMPRESSION: Nonobstructed bowel gas pattern with no acute appearing abnormality radiographically apparent. Dictated by: Dictated on workstation # [id number]
[2022-07-09] MEDS: PANTOPRAZOLE 40 MG (PROTONIX) VIAL IV SCH ×2 (08:39→20:29)
[2022-07-09] MEDS: GABAPENTIN 300 MG (NEURONTIN) CAP PO SCH ×3 (08:40→20:29)
[2022-07-09] MEDS: LOSARTAN 100 MG (COZAAR) TABLET PO SCH (08:40)
[2022-07-09] MEDS: DOCUSATE SODIUM 100 MG (COLACE) CAP PO SCH ×2 (08:41→20:29)
[2022-07-09] MEDS: SENNOSIDES 8.6 MG (SENOKOT) TAB PO SCH ×2 (08:41→20:29)
--- NOTE | 2022-07-09 08:46 | Diagnostic Imaging Report ---
INDICATION: Abdominal pain. COMPARISON: CT of the abdomen and pelvis dated 07/06/2022 TECHNIQUE: 2 radiographs of the chest dated 10/08/2022. FINDINGS: The cardiac silhouette is enlarged. No significant pulmonary vascular congestion. Large hiatal hernia is present, including extending into the medial right chest with associated adjacent atelectasis and scarring. The lungs are otherwise clear of focal pulmonary opacity. No pleural effusion. No pneumothorax. Surgical clips in the right upper quadrant of abdomen. No acute osseous abnormality. IMPRESSION: Large hiatal hernia is present with adjacent scarring and atelectasis. Dictated by: Dictated on workstation # [id number]
[2022-07-09] MEDS: LEVOTHYROXINE 100 MCG (LEVOTHROID) TAB PO SCH (09:34)
[2022-07-09] MEDS: PANTOPRAZOLE 40 MG (PROTONIX) TAB PO SCH (09:34)
[2022-07-09] MEDS: DICLOFENAC 1% GEL 100 GM (VOLTAREN) TUBE TOP SCH ×4 (09:36→20:30)
[2022-07-09 10:45] LABS: BASOPHILS % (AUTO) 0 % (0-10); EOSINOPHILS % (AUTO) 0 % (0-10); HEMOGLOBIN 7.7 g/dL (11.5-16.0); NEUTROPHILS # (AUTO) 8.5 10^3/uL (1.8-7.8)
[2022-07-09 10:47] LABS: HEMATOCRIT 24 % (35-52); LYMPHOCYTES # (AUTO) 0.7 10^3/uL (1.0-4.0); LYMPHOCYTES % (AUTO) 7 % (12-44); MEAN CORPUSCULAR HEMOGLOBIN 28 pg (25-34); MEAN CORPUSCULAR HGB CONC 32 g/dL (32-36); MEAN CORPUSCULAR VOLUME 88 fL (80-99); MONOCYTES # (AUTO) 0.9 10^3/uL (0.0-1.0); MONOCYTES % (AUTO) 8 % (0-12); NEUTROPHILS % (AUTO) 83 % (42-75); PLATELET COUNT 40 10^3/uL (130-400); WHITE BLOOD COUNT 10.3 10^3/uL (4.3-11.0)
[2022-07-09 10:55] LABS: ALBUMIN 3.5 GM/DL (3.2-4.5)
[2022-07-09 10:56] LABS: POTASSIUM 3.6 MMOL/L (3.6-5.0)
[2022-07-09 10:57] LABS: CALCIUM 8.2 MG/DL (8.5-10.1)
[2022-07-09 10:58] LABS: TOTAL PROTEIN 6.4 GM/DL (6.4-8.2)
[2022-07-09 11:00] LABS: BILIRUBIN,TOTAL 0.5 MG/DL (0.1-1.0)
--- NOTE | 2022-07-09 11:07 | Progress Note ---
JILLIAN ROMERO 07/09/22 1107: Subjective Date Seen by a Provider: Jul 09, 2022 Time Seen by a Provider: 11:10 Subjective/Events-last exam Patient's delirium is worsening. No longer orientated to time or place. Can give me her date Will ramble unprompted with word salad Patient does not appear in pain or report any pain N/V at this time are well controlled Patient has no appetite and not eating Patient is still pruritic, allergic rash still evident and systemic Daughter is at her bedside and has not slept Daughter refused haldol and ativan last night, "not wanting to worsen her mothers delirium" Daughter also refused EGD ordered by Dr. Newsome to be done outpatient for also "not wanting to worsen to her mothers delirium" Has been urinating very little No bowel movements this morning Daughter broke down into tears during encounter stating "she doesn't know what happened to her mother" Focused Exam Lactate Level 07/09/22 10:40: Lactic Acid Level 1.08 Lactic Acid Level Laboratory Tests Test 07/09/22 10:40 Lactic Acid Level 1.08 MMOL/L (0.50-2.00) Objective Exam Last Set of Vital Signs Vital Signs Date Time Temp Pulse Resp B/P (MAP) Pulse Ox O2 Delivery O2 Flow Rate FiO2 07/09/22 08:00 36.6 70 20 171/85 (113) 96 Room Air 07/07/22 07:13 0.00 07/06/22 19:55 21 Capillary Refill : I&O Intake and Output 07/09/22 00:00 Intake Total 1340 ml Balance 1340 ml Intake Oral 1340 ml # Voids 11 General: Alert, Cooperative, Mild Distress HEENT: Atraumatic Neck: Supple, No JVD Lungs: Clear to Auscultation Heart: Regular Rate, No Murmurs Abdomen: Normal Bowel Sounds, Soft Extremities: No Clubbing, No Cyanosis Skin: No Breakdown, Other (systemic allergic rash/urticaria, worse in inguinal folds and back) Neuro: Normal Tone, Sensation Intact Psych/Mental Status: Mental Status NL (Not orientated to person, or place. Having word salad) Results Lab Laboratory Tests 07/08/22 17:59: Glucometer 112H 07/09/22 06:20: Urine Color YELLOW, Urine Clarity CLEAR, Urine pH 7.0, Urine Specific [place] 1.015L, Urine Protein TRACEH, Urine Glucose (UA) NEGATIVE, Urine Ketones NEGATIVE, Urine Nitrite POSITIVEH, Urine Bilirubin NEGATIVE, Urine Urobilinogen 0.2, Urine Leukocyte Esterase 3+H, Urine RBC (Auto) 2+H, Urine RBC 2-5H, Urine WBC 10-25H, Urine Squamous Epithelial Cells 0-2, Urine Crystals NONE, Urine Bacteria LARGEH, Urine Casts NONE, Urine Mucus NEGATIVE, Urine Culture Indicated YES 07/09/22 06:38: Glucometer 103 07/09/22 10:40: White Blood Count 10.3, Red Blood Count 2.77L, Hemoglobin 7.7L, Hematocrit 24L, Mean Corpuscular Volume 88, Mean Corpuscular Hemoglobin 28, Mean Corpuscular Hemoglobin Concent 32, Red Cell Distribution Width 14.9H, Platelet Count 40L, Mean Platelet Volume , Immature Granulocyte % (Auto) 1, Neutrophils (%) (Auto) 83H, Lymphocytes (%) (Auto) 7L, Monocytes (%) (Auto) 8, Eosinophils (%) (Auto) 0, Basophils (%) (Auto) 0, Neutrophils # (Auto) 8.5H, Lymphocytes # (Auto) 0.7L, Monocytes # (Auto) 0.9, Eosinophils # (Auto) 0.0, Basophils # (Auto) 0.0, Immature Granulocyte # (Auto) 0.1, Percent Immature Platelet Fraction 26.9H, Sodium Level 142, Potassium Level 3.6, Carbon Dioxide Level 19L, Anion Gap 12, Blood Urea Nitrogen 30H, Creatinine 1.00, Estimat Glomerular Filtration Rate 56, BUN/Creatinine Ratio 30, Glucose Level 94, Lactic Acid Level 1.08, Calcium Level 8.2L, Corrected Calcium 8.6, Total Bilirubin 0.5, Aspartate Amino Transf (AST/SGOT) 105H, Alanine Aminotransferase (ALT/SGPT) 36, Alkaline Phosphatase 32L, Total Protein 6.4, Albumin 3.5 Assessment/Plan Assessment/Plan Assess & Plan/Chief Complaint Assessment and Plan: Acute delirium secondary to acute medical illness-worsening Acute systemic allergic rash secondary to medication-likely zofran Leukocytosis secondary to steroid use-no active sign of infection UTI Anemia Refractory N/V with gastritis of HH Giant cell arteritis on Prednisone 5mg daily HTN CKD Myelodysplastic syndrome managed by Dr Gordillo HLP Cardiac murmur managed by Dr Butt New imaging all negative-only showing old hiatal hernia Plan: Begin levofloxacin for UTI Continue Anti-emetics Monitor pain Appreciate Dr. Newsome Monitor rash-continue steroids and antihistamines Monitor delirium, reassure patient and family at this time. Advise patient to ta ke her time with her thought processing. Continue to monitor labs Monitor hemoglobin-transfuse if necessary Gain IV access Clinical Quality Measures DVT/VTE Risk/Contraindication: Contraindications-Pharm: Other *list below* Other: low plts PATTI STEINER DO 07/10/22 0551: Subjective Subjective/Events-last exam Delirium worsened as predicted Natural course of delirium which will be extended due to daughter refusal to allow anti-psychotic administration In-depth conversation with daughter completed at the bedside Daughter appears to be as exhausted as the patient Advancing diet to CLD Review of Systems Neurological: Confusion Objective Exam General: Alert Lungs: Clear to Auscultation Heart: Regular Rate Assessment/Plan Assessment/Plan Assess & Plan/Chief Complaint Severe delirium management Supportive care Supervisory-Addendum Brief Verification & Attestation Participated in pt care: history, MDM, physical Personally performed: exam, history, MDM, supervision of care Care discussed with: Medical Student Procedures: n/a Results interpretation: Verified all documentation Verification and Attestation of Medical Student E/M Service A medical student performed and documented this service in my presence. I r eviewed and verified all information documented by the medical student and made modifications to such information, when appropriate. I personally performed the physical exam and medical decision making. Patti Steiner Jul 10, 2022,05:49 JILLIAN ROMERO Jul 09, 2022 11:07 PATTI STEINER DO Jul 10, 2022 05:51
--- NOTE | 2022-07-09 11:19 | Physical Therapy Progress Note ---
Therapy Progress Note Patient's family declined PT on this date due to patient's current status. Family is very emotional. RN made aware of family refusal. Will resume/attempt tomorrow a.m. 1 ref (family) JANY GOMEZ PT Jul 09, 2022 11:19
[2022-07-09] MEDS: FLUoxetine HCL 20 MG (PROzac) CAP PO SCH (12:03)
--- NOTE | 2022-07-09 13:38 | Occ Therapy Progress Note ---
Therapy Progress Note Per nrsg, pt on hold for therapies due to medical issues. Will attempt tomorrow. SUKH JC Jul 09, 2022 13:38
[2022-07-09] MEDS: HALOPERIDOL 5 MG/ML (HALDOL) VIAL IM PRN ×2 (17:32→23:01)
[2022-07-09] MEDS: MIRABEGRON 25 MG TAB (MYRBETRIQ) PO SCH (20:29)
[2022-07-09] MEDS: MELATONIN 3 MG TABLET PO PRN (20:29)
[2022-07-10 04:10] VITALS: BP 126/79
[2022-07-10 05:47] LABS: BASOPHILS % (AUTO) 0 % (0-10); HEMOGLOBIN 7.9 g/dL (11.5-16.0)
[2022-07-10 05:49] LABS: EOSINOPHILS % (AUTO) 0 % (0-10); HEMATOCRIT 25 % (35-52); LYMPHOCYTES # (AUTO) 2.3 10^3/uL (1.0-4.0); LYMPHOCYTES % (AUTO) 20 % (12-44); MEAN CORPUSCULAR HEMOGLOBIN 28 pg (25-34); MEAN CORPUSCULAR HGB CONC 32 g/dL (32-36); MEAN CORPUSCULAR VOLUME 89 fL (80-99); MONOCYTES # (AUTO) 2.3 10^3/uL (0.0-1.0); MONOCYTES % (AUTO) 20 % (0-12); NEUTROPHILS # (AUTO) 6.9 10^3/uL (1.8-7.8); NEUTROPHILS % (AUTO) 60 % (42-75); WHITE BLOOD COUNT 11.6 10^3/uL (4.3-11.0)
[2022-07-10 05:55] LABS: PLATELET COUNT 38 10^3/uL (130-400)
[2022-07-10 06:01] LABS: ALBUMIN 3.3 GM/DL (3.2-4.5); POTASSIUM 3.1 MMOL/L (3.6-5.0)
[2022-07-10 06:03] LABS: CALCIUM 8.1 MG/DL (8.5-10.1)
[2022-07-10 06:04] LABS: TOTAL PROTEIN 6.1 GM/DL (6.4-8.2)
[2022-07-10 06:05] LABS: BILIRUBIN,TOTAL 0.6 MG/DL (0.1-1.0)
[2022-07-10 06:07] LABS: CREATININE SERUM 0.92 MG/DL (0.60-1.30)
[2022-07-10] MEDS ORDERED: NS IV 500 ML 500 ML ONE (06:53)
[2022-07-10] MEDS: POTASSIUM CL 10MEQ/50ML IVPB 50 ML IV SCH ×4 (06:56→09:45)
[2022-07-10] MEDS ORDERED: NS IV 500 ML 500 ML IV ONE (07:00)
[2022-07-10] MEDS: LEVOTHYROXINE 100 MCG (LEVOTHROID) TAB PO SCH (07:31)
[2022-07-10] MEDS: PANTOPRAZOLE 40 MG (PROTONIX) TAB PO SCH (07:32)
[2022-07-10 08:00] VITALS: BP 154/86
[2022-07-10] MEDS: LOSARTAN 100 MG (COZAAR) TABLET PO SCH (09:45)
[2022-07-10] MEDS: GABAPENTIN 300 MG (NEURONTIN) CAP PO SCH ×3 (09:45→20:04)
[2022-07-10] MEDS: DICLOFENAC 1% GEL 100 GM (VOLTAREN) TUBE TOP SCH ×4 (09:45→20:04)
[2022-07-10] MEDS: PANTOPRAZOLE 40 MG (PROTONIX) VIAL IV SCH ×2 (09:45→20:03)
[2022-07-10] MEDS: SENNOSIDES 8.6 MG (SENOKOT) TAB PO SCH ×2 (09:47→20:04)
[2022-07-10] MEDS: DOCUSATE SODIUM 100 MG (COLACE) CAP PO SCH ×2 (09:47→20:03)
--- NOTE | 2022-07-10 10:59 | Occupational Ther Daily Note ---
OT Current Status-Daily Note Subjective Pt alert, working with PT. RIOS took over care of pt. Family present in room. Pt agreeable to participate in session. Mental Status/Objective Patient Orientation: Person, Confused Attachments: IV ADL-Treatment Pt required assist to set up oral care, pt able to brush teeth by self then assist to position emesis basin to spit. Pt completed 3 B UE exercises against gravity 1 set 10 reps, requiring skilled instruction for correct technique and focus on task. Pt able to follow verbal and gestural directions to complete exercises. After session, pt lying in bed with call light/phone in reach. Family present in room. Therapy Code Descriptions/Definitions Functional [place] Measure: 0=Not Assessed/NA 4=Minimal Assistance 1=Total Assistance 5=Supervision or Setup 2=Maximal Assistance 6=Modified [place] 3=Moderate Assistance 7=Complete IndependenceSCALE: Activities may be completed with or without assistive devices. 2-Sfdatyhuht-[place]usa completes the activity by him/herself with no assistance from a helper. 5-Set-up or Clean-up Assistance-helper sets up or cleans up; patient completes activity. [place] assists only prior to or following the activity. 4-Supervision or Touching Assistance-helper provides verbal cues and/or touching/steadying and/or contact guard assistance as patient completes activity. Assistance may be provided throughout the activity or intermittently. 3-Partial/Moderate Assistance-helper does LESS THAN HALF the effort. [place] lifts, holds or supports trunk or limbs, but provides less than half the effort. 2-Substantial/Maximal Assistance-helper does MORE THAN HALF the effort. [place] lifts or holds trunk or limbs and provides more than half the effort. 5-Fokvxyxla-vkitmi does ALL the effort. Patient does none of the effort to comp lete the activity. Or, the assistance of 2 or more helpers is required for the patient to complete the activity. If activity was not attempted, code reason: 7-Patient Refused. 9-Not Applicable-not attempted and the patient did not perform the activity before the current illness, exacerbation or injury. 10-Not Attempted due to Environmental Limitations-(lack of equipment, weather restraints, etc.). 88-Not Attempted due to Medical Conditions or Safety Concerns. Oral Hygiene (QC): 3 (required hand over hand for set up.) OT Detention Goals [employer] Engineer Goals Time Frame: Jul 26, 2022 Eating (QC): 5 Oral Hygiene (QC): 5 Toileting Hygiene (QC): 4 Shower/Bathe Self (QC): 4 Upper Body Dressing (QC): 5 Lower Body Dressing (QC): 4 On/Off Footwear (QC): 4 Additional Goals: 1-Demonstrate ADL Tasks, 2-Verbalize Understanding, 3- ImproveStrength/Alfie 1=Demonstrate adherence to instructed precautions during ADL tasks. 2=Patient will verbalize/demonstrate understanding of assistive devices/modifications for ADL. 3=Patient will improve strength/tolerance for activity to enable patient to perform ADL's. OT Education/Plan Problem List/Assessment Assessment: Decreased Activ Tolerance, Decreased Safety Aware, Decreased UE Strength, Impaired Bed Mobility, Impaired Cognition, Impaired Self-Care Skills Discharge Recommendations Plan/Recommendations: Continue POC Treatment Plan/Plan of Care Patient would benefit from OT for education, treatment and training to promote independence in ADL's, mobility, safety and/or upper extremity function for ADL's. Plan of Care: ADL Retraining, Functional Mobility, UE Funct Exercise/Act Treatment Duration: Jul 26, 2022 Frequency: 3 times per week (3-5 times per week) Rehab Potential: Fair Time/GCodes Start Time: 10:15 Stop Time: 10:32 Total Time Billed (hr/min): 17 Billed Treatment Time 1 visit-FA 1 (17 min) SUKH JC Jul 10, 2022 10:59
--- NOTE | 2022-07-10 11:01 | Physical Therapy Daily Note ---
PT Daily Note-Current Subjective Patient in bed pre tx, agrees to PT, states she is very tired and weak, no complaints of pain. Appearance Patient in bed post tx with nurse call, phone, tray, all needs met, OT comes in to start with patient. Mental Status Patient Orientation: Person, Confused Attachments: [place] Catheter, IV Transfers SCALE: Activities may be completed with or without assistive devices. 7-Nvzbrtwpbu-kcuywul completes the activity by him/herself with no assistance from a helper. 5-Set-up or Clean-up Assistance-helper sets up or cleans up; patient completes activity. [place] assists only prior to or following the activity. 4-Supervision or Touching Assistance-helper provides verbal cues and/or touching/steadying and/or contact guard assistance as patient completes activity. Assistance may be provided throughout the activity or intermittently. 3-Partial/Moderate Assistance-helper does LESS THAN HALF the effort. [place] lifts, holds or supports trunk or limbs, but provides less than half the effort. 2-Substantial/Maximal Assistance-helper does MORE THAN HALF the effort. [place] lifts or holds trunk or limbs and provides more than half the effort. 6-Lzfjrxdgt-ovenfr does ALL the effort. Patient does none of the effort to c omplete the activity. Or, the assistance of 2 or more helpers is required for the patient to complete the activity. If activity was not attempted, code reason: 7-Patient Refused. 9-Not Applicable-not attempted and the patient did not perform the activity before the current illness, exacerbation or injury. 10-Not Attempted due to Environmental Limitations-(lack of equipment, weather restraints, etc.). 88-Not Attempted due to Medical Conditions or Safety Concerns. Roll Left & Right (QC): 3 Sit to Lying (QC): 3 Lying to Sitting/Side of Bed(Q: 3 Sit to Stand (QC): 3 Patient sits to the side of the bed with mod assist, stands with min assist, slightly retropulsive for a few seconds. Weight Bearing Right Lower Extremity: Right Weight Bearing/Tolerated Left Lower Extremity: Left Weight Bearing/Tolerated Gait Training Distance: 12' Walk 10 feet (QC): 3 Gait Persons Needed: 1 Gait Assistive Device: FWW Patient states she doesn't think she can walk very much. She is able to ambulate about 3' forward and back twice for about 12' total before needing to sit back down. Exercises Standing: Marching, Mini squats Standing Reps: 10 Treatments bed mobility, standing, LE strengthening, ambulation Assessment Current Status: Fair Progress patient is pretty lethargic, has poor endurance, falls asleep almost immediately after laying back down. PT Chcf Goals Chcf Goals PT Chcf Goals Time Frame: Jul 20, 2022 Roll Left & Right (QC): 6 Sit to Lying (QC): 6 Lying-Sitting on Side/Bed(QC): 6 Sit to Stand (QC): 6 Chair/Jjw-qk-Qsaie Xfer(QC): 6 Toilet Transfer (QC): 6 Walk 10 feet (QC): 6 Walk 50ft with 2 Turns (QC): 6 Walk 150 ft (QC): 6 PT Plan Problem List Problem List: Activity Tolerance, Functional Strength, Safety, Balance, Gait, Transfer, Bed Mobility, ROM Treatment/Plan Treatment Plan: Continue Plan of Care Treatment Plan: Bed Mobility, Education, Functional Activity Alfie, Functional Strength, Gait, Safety, Therapeutic Exercise, Transfers Treatment Duration: Jul 20, 2022 Frequency: 6 times per week Estimated Hrs Per Day: .25 hour per day Patient and/or Family Agrees t: Yes Safety Risks/Education Patient Education: Gait Training, Transfer Techniques, Correct Positioning, Safety Issues Teaching Recipient: Patient Teaching Methods: Demonstration, Discussion Response to Teaching: Reinforcement Needed Time/GCodes Time In: 1005 Time Out: 1016 Total Billed Treatment Time: 11 Total Billed Treatment 1 visit FA 11' NEREIDA MARC PT Jul 10, 2022 11:01
[2022-07-10 11:09] VITALS: BP 143/78
[2022-07-10] MEDS: FLUoxetine HCL 20 MG (PROzac) CAP PO SCH (14:14)
--- NOTE | 2022-07-10 14:41 | Progress Note ---
JILLIAN ROMERO 07/10/22 1441: Subjective Date Seen by a Provider: Jul 10, 2022 Time Seen by a Provider: 14:36 Subjective/Events-last exam Patient is doing better today. Was able to sleep last night after Haldol and Ativan administration She was able to answer some pointed questions today and had some coherent thought She denies any pain Her N/V are under control Her delirium is slightly improving Was able to drink some Sprite and keep it down yesterday Daughter and grandson where bedside Daughter appears in a better state today and was able to sleep last night Patient is still itchy from allergic rash and was bringing in some home medication to see if it improved the rash. Labs reviewed Urinary catheter placed Focused Exam Lactate Level 07/09/22 10:40: Lactic Acid Level 1.08 Objective Exam Last Set of Vital Signs Vital Signs Date Time Temp Pulse Resp B/P (MAP) Pulse Ox O2 Delivery O2 Flow Rate FiO2 07/10/22 11:09 37.2 89 18 143/78 (99) 93 Room Air 07/10/22 04:10 0.00 0.00 07/06/22 19:55 21 Capillary Refill : I&O Intake and Output 07/10/22 00:00 Intake Total 220 ml Output Total 1750 ml Balance -1530 ml Intake Oral 220 ml Output Urine Total 1750 ml # Voids 1 # Bowel Movements 1 General: Alert, Cooperative, Mild Distress Neck: Supple, No JVD Lungs: Clear to Auscultation Heart: Regular Rate, No Murmurs Abdomen: Soft, No Tenderness Extremities: No Clubbing, No Cyanosis Skin: No Breakdown Neuro: Normal Tone, Sensation Intact Results Lab Laboratory Tests 07/10/22 05:40: White Blood Count 11.6H, Red Blood Count 2.83L, Hemoglobin 7.9L, Hematocrit 25L, Mean Corpuscular Volume 89, Mean Corpuscular Hemoglobin 28, Mean Corpuscular Hemoglobin Concent 32, Red Cell Distribution Width 15.0H, Platelet Count 38*L, Mean Platelet Volume , Immature Granulocyte % (Auto) 1, Neutrophils (%) (Auto) 60, Lymphocytes (%) (Auto) 20, Monocytes (%) (Auto) 20H, Eosinophils (%) (Auto) 0, Basophils (%) (Auto) 0, Neutrophils # (Auto) 6.9, Lymphocytes # (Auto) 2.3, Monocytes # (Auto) 2.3H, Eosinophils # (Auto) 0.0, Basophils # (Auto) 0.0, Immat ure Granulocyte # (Auto) 0.1, Percent Immature Platelet Fraction 28.7H, Sodium Level 143, Potassium Level 3.1L, Chloride Level 113H, Carbon Dioxide Level 15L, Anion Gap 15H, Blood Urea Nitrogen 24H, Creatinine 0.92, Estimat Glomerular Filtration Rate 62, BUN/Creatinine Ratio 26, Glucose Level 73, Calcium Level 8.1L, Corrected Calcium 8.7, Total Bilirubin 0.6, Aspartate Amino Transf (AST/SGOT) 107H, Alanine Aminotransferase (ALT/SGPT) 44, Alkaline Phosphatase 35L, Total Protein 6.1L, Albumin 3.3 Microbiology 07/09/22 Urine Culture - Preliminary, Resulted Proteus species Assessment/Plan Assessment/Plan Assess & Plan/Chief Complaint Assessment and Plan: Acute delirium secondary to acute medical illness-slight improvement today. 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 Newsome Monitor rash-continue steroids and antihistamines Monitor delirium, reassure patient and family at this time. Advise patient to take her time with her thought processing. Ativan and Haldol administered Continue to monitor labs Monitor hemoglobin-transfuse if necessary Gain IV access Clinical Quality Measures DVT/VTE Risk/Contraindication: Contraindications-Pharm: Other *list below* Other: low plts PATTI STEINER DO 07/11/22 0520: Subjective Subjective/Events-last exam Much improved status Delirium clearing Family at bedside Review of Systems General: Fatigue, Malaise Neurological: Confusion Objective Exam General: Alert, Oriented X3, Cooperative, No Acute Distress Lungs: Clear to Auscultation, Normal Air Movement Heart: Regular Rate, Normal S1, Normal S2, No Murmurs Assessment/Plan Assessment/Plan Assess & Plan/Chief Complaint Improved Supervisory-Addendum Brief Verification & Attestation Participated in pt care: history, MDM, physical Personally performed: exam, history, MDM, supervision of care Care discussed with: Medical Student Procedures: n/a Results interpretation: Verified all documentation Verification and Attestation of Medical Student E/M Service A medical student performed and documented this service in my presence. I reviewed and verified all information documented by the medical student and made modifications to such information, when appropriate. I personally performed the physical exam and medical decision making. Patti Steiner, Jul 11, 2022,05:20 JILLIAN ROMERO Jul 10, 2022 14:41 PATTI STEINER DO Jul 11, 2022 05:20
[2022-07-10 15:51] VITALS: BP 154/80
[2022-07-10 20:03] VITALS: BP 144/80
[2022-07-10] MEDS: MIRABEGRON 25 MG TAB (MYRBETRIQ) PO SCH (20:03)
[2022-07-11 00:22] VITALS: BP 160/89
[2022-07-11 04:11] VITALS: BP 149/84
[2022-07-11 05:19] LABS: BASOPHILS % (AUTO) 0 % (0-10); EOSINOPHILS % (AUTO) 0 % (0-10); HEMOGLOBIN 8.1 g/dL (11.5-16.0)
[2022-07-11 05:21] LABS: HEMATOCRIT 26 % (35-52); LYMPHOCYTES # (AUTO) 1.9 10^3/uL (1.0-4.0); LYMPHOCYTES % (AUTO) 19 % (12-44); MEAN CORPUSCULAR HEMOGLOBIN 28 pg (25-34); MEAN CORPUSCULAR HGB CONC 32 g/dL (32-36); MEAN CORPUSCULAR VOLUME 89 fL (80-99); MONOCYTES # (AUTO) 3.7 10^3/uL (0.0-1.0); MONOCYTES % (AUTO) 36 % (0-12); NEUTROPHILS # (AUTO) 4.4 10^3/uL (1.8-7.8); NEUTROPHILS % (AUTO) 43 % (42-75); PLATELET COUNT 43 10^3/uL (130-400); WHITE BLOOD COUNT 10.2 10^3/uL (4.3-11.0)
[2022-07-11 05:31] LABS: ALBUMIN 3.2 GM/DL (3.2-4.5)
[2022-07-11 05:32] LABS: POTASSIUM 3.3 MMOL/L (3.6-5.0)
[2022-07-11 05:33] LABS: CALCIUM 8.3 MG/DL (8.5-10.1)
[2022-07-11 05:34] LABS: TOTAL PROTEIN 6.1 GM/DL (6.4-8.2)
[2022-07-11 05:36] LABS: BILIRUBIN,TOTAL 0.7 MG/DL (0.1-1.0)
[2022-07-11 05:38] LABS: CREATININE SERUM 0.88 MG/DL (0.60-1.30)
[2022-07-11] MEDS: LEVOTHYROXINE 100 MCG (LEVOTHROID) TAB PO SCH (06:31)
[2022-07-11] MEDS: PANTOPRAZOLE 40 MG (PROTONIX) TAB PO SCH ×2 (06:38→08:31)
[2022-07-11] MEDS: GABAPENTIN 300 MG (NEURONTIN) CAP PO SCH (08:27)
[2022-07-11] MEDS: DOCUSATE SODIUM 100 MG (COLACE) CAP PO SCH (08:28)
[2022-07-11] MEDS: SENNOSIDES 8.6 MG (SENOKOT) TAB PO SCH (08:29)
[2022-07-11] MEDS: DICLOFENAC 1% GEL 100 GM (VOLTAREN) TUBE TOP SCH (08:29)
[2022-07-11] MEDS: LOSARTAN 100 MG (COZAAR) TABLET PO SCH (08:29)
[2022-07-11] MEDS: PANTOPRAZOLE 40 MG (PROTONIX) VIAL IV SCH (08:39)
[2022-07-11 08:45] VITALS: BP 153/78
--- NOTE | 2022-07-11 10:13 | Discharge Summary ---
Diagnosis/Chief Complaint Date of Admission Jul 07, 2022 at 12:30 Date of Discharge Discharge Date: Jul 11, 2022 Discharge Diagnosis Assessment and Plan: Acute delirium secondary to acute medical illness-slight improvement today. 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 Newsome Monitor rash-continue steroids and antihistamines Monitor delirium, reassure patient and family at this time. Advise patient to take her time with her thought processing. Ativan and Haldol administered Continue to monitor labs Monitor hemoglobin-transfuse if necessary Gain IV access Discharge Summary Discharge Physical Examination Allergies: Coded Allergies: fentanyl (Verified Allergy, Intermediate, Rash, 07/08/22) RASH AND CONFUSION hydromorphone (Verified Allergy, Intermediate, 07/08/22) CONFUSION Penicillins (Verified Allergy, Unknown, RASH, 05/09/17) Sulfa (Sulfonamide Antibiotics) (Verified Allergy, Unknown, RASH, 05/09/17) azithromycin (Verified Allergy, Unknown, RASH, 05/09/17) cephalexin (Verified Allergy, Unknown, RASH, 05/09/17) clindamycin (Verified Allergy, Unknown, 07/06/22) naproxen (Verified Adverse Reaction, Unknown, 05/09/17) HEADACHE Vitals & I&Os Vital Signs Date Time Temp Pulse Resp B/P (MAP) Pulse Ox O2 Delivery O2 Flow Rate FiO2 07/11/22 11:05 36.9 87 19 153/78 84 Room Air 2.00 07/06/22 19:55 21 General Appearance: Alert, Oriented X3, Cooperative Respiratory: Clear to Auscultation Cardiovascular: Regular Rate Psych/Mental Status: Mental Status NL Hospital Course Was the Problem List Reviewed?: Yes 82 year old white female patient presented to ER (07-06-2022) for generalized abdominal pain, nausea, and vomiting with a history of GERD and esophageal stricture. Once in the ER she had an abdominal CT done which showed a hiatal he rnia and possible volvulus. She was subsequently admitted, to receive IVF, IV PPI, and antiemetics. After her first dose of Zofran she began having an intense systemic pruritic rash. The next day she began having confusion and episodes of delirium. Her daughter was at her bedside throughout her whole admission and began worrying about her mothers delirium and mental decline. Patient was then ordered to be given Haldol, Ativan, along with an EGD by Dr. Newsome. The daughter declined all of these treatments because she didnt want to worsen her mothers delirium. The EGD was then scheduled to be done outpatient. Patient then developed a UTI and is being treated with Levofloxacin, her potassium began declining during her stay as well and was replaced. Patient continued with worsening delirium and insomnia. Patient was ordered to have a CT head, chest x- ray, and abdominal x-ray on 07-09-2022. All the imaging came back negative, with no acute abnormalities except for aforementioned hiatal hernia. After furthering decline over the night of 07-09-2022 the daughter decided to have Ativan and Haldol administered. Following administration of Ativan and Haldol patient was finally able to sleep. She ended up sleeping from midnight to 7 A.M. The following morning patients delirium was improved and was able to speak in coherent sentences. Her mental status has been improving ever since. Today (07-11-2022) she was able to communicate regarding her current status, but does not remember the prior 24 hours during her intense episodes of delirium. She has no complaints of pain, nausea, or vomiting this morning. She was able to participate in PT and OT yesterday but was to weak to shower. Patient has improved enough to be moved to rehab floor. Both patient and family are not excited about being moved to rehab floor, both were hoping to be able and leave hospital today. Patients son was in the room today and wanted clarification regarding the timeline for being in rehab. Labs (last 24 hrs) Laboratory Tests 07/06/22 12:45: White Blood Count 5.7, Red Blood Count 4.30, Hemoglobin 11.8, Hematocrit 38, Mean Corpuscular Volume 87, Mean Corpuscular Hemoglobin 27, Mean Corpuscular Hemoglobin Concent 32, Red Cell Distribution Width 14.9H, Platelet Count 55L, Mean Platelet Volume , Immature Granulocyte % (Auto) 1, Neutrophils (%) (Auto) 40L, Lymphocytes (%) (Auto) 28, Monocytes (%) (Auto) 31H, Eosinophils (%) (Auto) 0, Basophils (%) (Auto) 0, Neutrophils # (Auto) 2.3, Lymphocytes # (Auto) 1.6, Monocytes # (Auto) 1.8H, Eosinophils # (Auto) 0.0, Basophils # (Auto) 0.0, Immature Granulocyte # (Auto) 0.0, Neutrophils % (Manual) 44, Lymphocytes % (Manual) 28, Monocytes % (Manual) 26, Reactive Lymphocytes 2, Percent Immature Platelet Fraction 21.0H, Blood Morphology Comment NORMAL, Sodium Level 144, Potassium Level 3.8, Chloride Level 102, Carbon Dioxide Level 29, Anion Gap 13, Blood Urea Nitrogen 20H, Creatinine 1.16, Estimat Glomerular Filtration Rate 47, BUN/Creatinine Ratio 17, Glucose Level 110H, Calcium Level 10.8H, Corrected Calcium 10.4H, Total Bilirubin 0.7, Aspartate Amino Transf (AST/SGOT) 28, Alanine Aminotransferase (ALT/SGPT) 14, Alkaline Phosphatase 56, C-Reactive Protein High Sensitivity 0.69H, Total Protein 8.9H, Albumin 4.5, Lipase 42 07/06/22 16:10: Urine Color YELLOW, Urine Clarity CLEAR, Urine pH 7.0, Urine Specific [place] 1.015L, Urine Protein 1+H, Urine Glucose (UA) NEGATIVE, Urine Ketones 1+H, Urine Nitrite NEGATIVE, Urine Bilirubin NEGATIVE, Urine Urobilinogen 0.2, Urine Leukocyte Esterase NEGATIVE, Urine RBC (Auto) TRACE-IH, Urine RBC RARE, Urine WBC NONE, Urine Crystals NONE, Urine Bacteria TRACE, Urine Casts NONE, Urine Mucus NEGATIVE, Urine Culture Indicated NO 07/06/22 16:15: Gastric Fluid Occult Blood NEGATIVE 07/06/22 23:55: Glucometer 108 07/07/22 05:18: Glucometer 113H 07/07/22 06:55: White Blood Count 8.5, Red Blood Count 4.10, Hemoglobin 11.4L, Hematocrit 37, Mean Corpuscular Volume 89, Mean Corpuscular Hemoglobin 28, Mean Corpuscular Hemoglobin Concent 31L, Red Cell Distribution Width 15.0H, Platelet Count 47L, Mean Platelet Volume , Immature Granulocyte % (Auto) 1, Neutrophils (%) (Auto) 64, Lymphocytes (%) (Auto) 12, Monocytes (%) (Auto) 24H, Eosinophils (%) (Auto) 0, Basophils (%) (Auto) 0, Neutrophils # (Auto) 5.4, Lymphocytes # (Auto) 1.0, Monocytes # (Auto) 2.1H, Eosinophils # (Auto) 0.0, Basophils # (Auto) 0.0, Immature Granulocyte # (Auto) 0.1, Percent Immature Platelet Fraction 18.0H, Sodium Level 145, Potassium Level 3.7, Chloride Level 105, Carbon Dioxide Level 23, Anion Gap 17H, Blood Urea Nitrogen 18, Creatinine 1.11, Estimat Glomerular Filtration Rate 49, BUN/Creatinine Ratio 16, Glucose Level 129H, Calcium Level 9.5, Corrected Calcium 9.4, Total Bilirubin 0.7, Aspartate Amino Transf (AST/SGOT) 32, Alanine Aminotransferase (ALT/SGPT) 14, Alkaline Phosphatase 49, Total Protein 8.0, Albumin 4.1 07/07/22 12:03: Glucometer 145H 07/07/22 15:45: Glucometer 138H 07/07/22 23:40: Glucometer 124H 07/08/22 05:22: Glucometer 106 07/08/22 05:38: White Blood Count 16.9H, Red Blood Count 2.99L, Hemoglobin 8.3#L, Hematocrit 27L , Mean Corpuscular Volume 89, Mean Corpuscular Hemoglobin 28, Mean Corpuscular Hemoglobin Concent 31L, Red Cell Distribution Width 14.9H, Platelet Count 42L, Mean Platelet Volume 13.9H, Immature Granulocyte % (Auto) 2, Neutrophils (%) (Auto) 88H, Lymphocytes (%) (Auto) 6L, Monocytes (%) (Auto) 4, Eosinophils (%) (Auto) 0, Basophils (%) (Auto) 0, Neutrophils # (Auto) 14.9H, Lymphocytes # (Auto) 1.0, Monocytes # (Auto) 0.7, Eosinophils # (Auto) 0.0, Basophils # (Auto) 0.0, Immature Granulocyte # (Auto) 0.3H, Neutrophils % (Manual) 82, Lymphocytes % (Manual) 7, Monocytes % (Manual) 2, Band Neutrophils 8, Atypical Lymphocytes 1, Clumped Platelets NONE SEEN, Percent Immature Platelet Fraction 22.1H, Blood Morphology Comment NORMAL, Sodium Level 143, Potassium Level 3.8, Chloride Level 111H, Carbon Dioxide Level 20L, Anion Gap 12, Blood Urea Nitrogen 39H, Creatinine 1.04, Estimat Glomerular Filtration Rate 53, BUN/Creatinine Ratio 38, Glucose Level 117H, Calcium Level 8.5, Corrected Calcium 8.9, Total Bilirubin 0.5, Aspartate Amino Transf (AST/SGOT) 63H, Alanine Aminotransferase (ALT/SGPT) 15, Alkaline Phosphatase 35L, Total Protein 6.8, Albumin 3.5, Procalcitonin 0.12H 07/08/22 11:00: Glucometer 103 07/08/22 17:59: Glucometer 112H 07/09/22 06:20: Urine Color YELLOW, Urine Clarity CLEAR, Urine pH 7.0, Urine Specific [place] 1.015L, Urine Protein TRACEH, Urine Glucose (UA) NEGATIVE, Urine Ketones NEGATIVE, Urine Nitrite POSITIVEH, Urine Bilirubin NEGATIVE, Urine Urobilinogen 0.2, Urine Leukocyte Esterase 3+H, Urine RBC (Auto) 2+H, Urine RBC 2-5H, Urine WBC 10-25H, Urine Squamous Epithelial Cells 0-2, Urine Crystals NONE, Urine Bacteria LARGEH, Urine Casts NONE, Urine Mucus NEGATIVE, Urine Culture Indicated YES 07/09/22 06:38: Glucometer 103 07/09/22 10:40: White Blood Count 10.3, Red Blood Count 2.77L, Hemoglobin 7.7L, Hematocrit 24L, Mean Corpuscular Volume 88, Mean Corpuscular Hemoglobin 28, Mean Corpuscular Hemoglobin Concent 32, Red Cell Distribution Width 14.9H, Platelet Count 40L, Mean Platelet Volume , Immature Granulocyte % (Auto) 1, Neutrophils (%) (Auto) 83H, Lymphocytes (%) (Auto) 7L, Monocytes (%) (Auto) 8, Eosinophils (%) (Auto) 0, Basophils (%) (Auto) 0, Neutrophils # (Auto) 8.5H, Lymphocytes # (Auto) 0.7L, Monocytes # (Auto) 0.9, Eosinophils # (Auto) 0.0, Basophils # (Auto) 0.0, Immature Granulocyte # (Auto) 0.1, Percent Immature Platelet Fraction 26.9H, Sodium Level 142, Potassium Level 3.6, Chloride Level 111H, Carbon Dioxide Level 19L, Anion Gap 12, Blood Urea Nitrogen 30H, Creatinine 1.00, Estimat Glomerular Filtration Rate 56, BUN/Creatinine Ratio 30, Glucose Level 94, Lactic Acid Level 1.08, Calcium Level 8.2L, Corrected Calcium 8.6, Total Bilirubin 0.5, Aspartate Amino Transf (AST/SGOT) 105H, Alanine Aminotransferase (ALT/SGPT) 36, Alkaline Phosphatase 32L, Total Protein 6.4, Albumin 3.5, Procalcitonin 0.10H 07/10/22 05:40: White Blood Count 11.6H, Red Blood Count 2.83L, Hemoglobin 7.9L, Hematocrit 25L, Mean Corpuscular Volume 89, Mean Corpuscular Hemoglobin 28, Mean Corpuscular Hemoglobin Concent 32, Red Cell Distribution Width 15.0H, Platelet Count 38*L, Mean Platelet Volume , Immature Granulocyte % (Auto) 1, Neutrophils (%) (Auto) 60, Lymphocytes (%) (Auto) 20, Monocytes (%) (Auto) 20H, Eosinophils (%) (Auto) 0, Basophils (%) (Auto) 0, Neutrophils # (Auto) 6.9, Lymphocytes # (Auto) 2.3, Monocytes # (Auto) 2.3H, Eosinophils # (Auto) 0.0, Basophils # (Auto) 0.0, Immature Granulocyte # (Auto) 0.1, Percent Immature Platelet Fraction 28.7H, Sodium Level 143, Potassium Level 3.1L, Chloride Level 113H, Carbon Dioxide Level 15L, Anion Gap 15H, Blood Urea Nitrogen 24H, Creatinine 0.92, Estimat Glomerular Filtration Rate 62, BUN/Creatinine Ratio 26, Glucose Level 73, Calcium Level 8.1L, Corrected Calcium 8.7, Total Bilirubin 0.6, Aspartate Amino Transf (AST/SGOT) 107H, Alanine Aminotransferase (ALT/SGPT) 44, Alkaline Phosphatase 35L, Total Protein 6.1L, Albumin 3.3 07/11/22 05:10: White Blood Count 10.2, Red Blood Count 2.90L, Hemoglobin 8.1L, Hematocrit 26L, Mean Corpuscular Volume 89, Mean Corpuscular Hemoglobin 28, Mean Corpuscular Hemoglobin Concent 32, Red Cell Distribution Width 15.1H, Platelet Count 43L, Mean Platelet Volume , Immature Granulocyte % (Auto) 3, Neutrophils (%) (Auto) 43, Lymphocytes (%) (Auto) 19, Monocytes (%) (Auto) 36H, Eosinophils (%) (Auto) 0, Basophils (%) (Auto) 0, Neutrophils # (Auto) 4.4, Lymphocytes # (Auto) 1.9, Monocytes # (Auto) 3.7H, Eosinophils # (Auto) 0.0, Basophils # (Auto) 0.0, Immature Granulocyte # (Auto) 0.3H, Percent Immature Platelet Fraction 29.1H, Sodium Level 140, Potassium Level 3.3L, Chloride Level 108H, Carbon Dioxide Level 19L, Anion Gap 13, Blood Urea Nitrogen 14, Creatinine 0.88, Estimat Glomerular Filtration Rate 65, BUN/Creatinine Ratio 16, Glucose Level 81, Calcium Level 8.3L, Corrected Calcium 8.9, Total Bilirubin 0.7, Aspartate Amino Transf (AST/SGOT) 69H, Alanine Aminotransferase (ALT/SGPT) 37, Alkaline Ph osphatase 38L, Total Protein 6.1L, Albumin 3.2 Microbiology 07/09/22 Blood Culture - Preliminary, Resulted No growth 07/09/22 Urine Culture - Final, Complete Proteus mirabilis Pending Labs Microbiology Date/Time Source Procedure Growth Status 07/09/22 14:05 Port Picc Blood Culture - Preliminary No growth Resulted 07/09/22 10:40 Port Picc Blood Culture - Preliminary No growth Resulted 07/09/22 06:20 Urine Clean Catch Urine Culture - Final Proteus mirabilis Complete Laboratory Tests 07/06/22 12:45: White Blood Count 5.7, Red Blood Count 4.30, Hemoglobin 11.8, Hematocrit 38, Mean Corpuscular Volume 87, Mean Corpuscular Hemoglobin 27, Mean Corpuscular Hemoglobin Concent 32, Red Cell Distribution Width 14.9, Platelet Count 55, Mean Platelet Volume , Immature Granulocyte % (Auto) 1, Neutrophils (%) (Auto) 40, Lymphocytes (%) (Auto) 28, Monocytes (%) (Auto) 31, Eosinophils (%) (Auto) 0, Basophils (%) (Auto) 0, Neutrophils # (Auto) 2.3, Lymphocytes # (Auto) 1.6, Monocytes # (Auto) 1.8, Eosinophils # (Auto) 0.0, Basophils # (Auto) 0.0, Immature Granulocyte # (Auto) 0.0, Neutrophils % (Manual) 44, Lymphocytes % (Manual) 28, Monocytes % (Manual) 26, Reactive Lymphocytes 2, Percent Immature Platelet Fraction 21.0, Blood Morphology Comment NORMAL, Sodium Level 144, Potassium Level 3.8, Chloride Level 102, Carbon Dioxide Level 29, Anion Gap 13, Blood Urea Nitrogen 20, Creatinine 1.16, Estimat Glomerular Filtration Rate 47, BUN/Creatinine Ratio 17, Glucose Level 110, Calcium Level 10.8, Corrected Calcium 10.4, Total Bilirubin 0.7, Aspartate Amino Transf (AST/SGOT) 28, Alanine Aminotransferase (ALT/SGPT) 14, Alkaline Phosphatase 56, C-Reactive Protein High Sensitivity 0.69, Total Protein 8.9, Albumin 4.5, Lipase 42 07/06/22 16:10: Urine Color YELLOW, Urine Clarity CLEAR, Urine pH 7.0, Urine Specific [place] 1.015, Urine Protein 1+, Urine Glucose (UA) NEGATIVE, Urine Ketones 1+, Urine Nitrite NEGATIVE, Urine Bilirubin NEGATIVE, Urine Urobilinogen 0.2, Urine Leukocyte Esterase NEGATIVE, Urine RBC (Auto) TRACE-I, Urine RBC RARE, Urine WBC NONE, Urine Crystals NONE, Urine Bacteria TRACE, Urine Casts NONE, Urine Mucus N EGATIVE, Urine Culture Indicated NO 07/06/22 16:15: Gastric Fluid Occult Blood NEGATIVE 07/06/22 23:55: Glucometer 108 07/07/22 05:18: Glucometer 113 07/07/22 06:55: White Blood Count 8.5, Red Blood Count 4.10, Hemoglobin 11.4, Hematocrit 37, Mean Corpuscular Volume 89, Mean Corpuscular Hemoglobin 28, Mean Corpuscular Hemoglobin Concent 31, Red Cell Distribution Width 15.0, Platelet Count 47, Mean Platelet Volume , Immature Granulocyte % (Auto) 1, Neutrophils (%) (Auto) 64, Lymphocytes (%) (Auto) 12, Monocytes (%) (Auto) 24, Eosinophils (%) (Auto) 0, Ba sophils (%) (Auto) 0, Neutrophils # (Auto) 5.4, Lymphocytes # (Auto) 1.0, Monocytes # (Auto) 2.1, Eosinophils # (Auto) 0.0, Basophils # (Auto) 0.0, Immature Granulocyte # (Auto) 0.1, Percent Immature Platelet Fraction 18.0, Sodium Level 145, Potassium Level 3.7, Chloride Level 105, Carbon Dioxide Level 23, Anion Gap 17, Blood Urea Nitrogen 18, Creatinine 1.11, Estimat Glomerular Fi ltration Rate 49, BUN/Creatinine Ratio 16, Glucose Level 129, Calcium Level 9.5, Corrected Calcium 9.4, Total Bilirubin 0.7, Aspartate Amino Transf (AST/SGOT) 32, Alanine Aminotransferase (ALT/SGPT) 14, Alkaline Phosphatase 49, Total Protein 8.0, Albumin 4.1 07/07/22 12:03: Glucometer 145 07/07/22 15:45: Glucometer 138 07/07/22 23:40: Glucometer 124 07/08/22 05:22: Glucometer 106 07/08/22 05:38: White Blood Count 16.9, Red Blood Count 2.99, Hemoglobin 8.3, Hematocrit 27, Mean Corpuscular Volume 89, Mean Corpuscular Hemoglobin 28, Mean Corpuscular Hemoglobin Concent 31, Red Cell Distribution Width 14.9, Platelet Count 42, Mean Platelet Volume 13.9, Immature Granulocyte % (Auto) 2, Neutrophils (%) (Auto) 88, Lymphocytes (%) (Auto) 6, Monocytes (%) (Auto) 4, Eosinophils (%) (Auto) 0, Basophils (%) (Auto) 0, Neutrophils # (Auto) 14.9, Lymphocytes # (Auto) 1.0, Monocytes # (Auto) 0.7, Eosinophils # (Auto) 0.0, Basophils # (Auto) 0.0, Immature Granulocyte # (Auto) 0.3, Neutrophils % (Manual) 82, Lymphocytes % (Manual) 7, Monocytes % (Manual) 2, Band Neutrophils 8, Atypical Lymphocytes 1, Clumped Platelets NONE SEEN, Percent Immature Platelet Fraction 22.1, Blood Morp hology Comment NORMAL, Sodium Level 143, Potassium Level 3.8, Chloride Level 111, Carbon Dioxide Level 20, Anion Gap 12, Blood Urea Nitrogen 39, Creatinine 1.04, Estimat Glomerular Filtration Rate 53, BUN/Creatinine Ratio 38, Glucose Level 117, Calcium Level 8.5, Corrected Calcium 8.9, Total Bilirubin 0.5, Aspartate Amino Transf (AST/SGOT) 63, Alanine Aminotransferase (ALT/SGPT) 15, Alkaline Phosphatase 35, Total Protein 6.8, Albumin 3.5, Procalcitonin 0.12 07/08/22 11:00: Glucometer 103 07/08/22 17:59: Glucometer 112 07/09/22 06:20: Urine Color YELLOW, Urine Clarity CLEAR, Urine pH 7.0, Urine Specific [place] 1.015, Urine Protein TRACE, Urine Glucose (UA) NEGATIVE, Urine Ketones NEGATIVE, Urine Nitrite POSITIVE, Urine Bilirubin NEGATIVE, Urine Urobilinogen 0.2, Urine Leukocyte Esterase 3+, Urine RBC (Auto) 2+, Urine RBC 2-5, Urine WBC 10-25, Urine Squamous Epithelial Cells 0-2, Urine Crystals NONE, Urine Bacteria LARGE, Urine Casts NONE, Urine Mucus NEGATIVE, Urine Culture Indicated YES 07/09/22 06:38: Glucometer 103 07/09/22 10:40: White Blood Count 10.3, Red Blood Count 2.77, Hemoglobin 7.7, Hematocrit 24, Mean Corpuscular Volume 88, Mean Corpuscular Hemoglobin 28, Mean Corpuscular Hemoglobin Concent 32, Red Cell Distribution Width 14.9, Platelet Count 40, Mean Platelet Volume , Immature Granulocyte % (Auto) 1, Neutrophils (%) (Auto) 83, Lymphocytes (%) (Auto) 7, Monocytes (%) (Auto) 8, Eosinophils (%) (Auto) 0, Basophils (%) (Auto) 0, Neutrophils # (Auto) 8.5, Lymphocytes # (Auto) 0.7, Monocytes # (Auto) 0.9, Eosinophils # (Auto) 0.0, Basophils # (Auto) 0.0, Immature Granulocyte # (Auto) 0.1, Percent Immature Platelet Fraction 26.9, Sodium Level 142, Potassium Level 3.6, Chloride Level 111, Carbon Dioxide Level 19, Anion Gap 12, Blood Urea Nitrogen 30, Creatinine 1.00, Estimat Glomerular Filtration Rate 56, BUN/Creatinine Ratio 30, Glucose Level 94, Lactic Acid Level 1.08, Calcium Level 8.2, Corrected Calcium 8.6, Total Bilirubin 0.5, Aspartate Amino Transf (AST/SGOT) 105, Alanine Aminotransferase (ALT/SGPT) 36, Alkaline Phosphatase 32, Total Protein 6.4, Albumin 3.5, Procalcitonin 0.10 07/10/22 05:40: White Blood Count 11.6, Red Blood Count 2.83, Hemoglobin 7.9, Hematocrit 25, Mean Corpuscular Volume 89, Mean Corpuscular Hemoglobin 28, Mean Corpuscular Hemoglobin Concent 32, Red Cell Distribution Width 15.0, Platelet Count 38, Mean Platelet Volume , Immature Granulocyte % (Auto) 1, Neutrophils (%) (Auto) 60, Lymphocytes (%) (Auto) 20, Monocytes (%) (Auto) 20, Eosinophils (%) (Auto) 0, Basophils (%) (Auto) 0, Neutrophils # (Auto) 6.9, Lymphocytes # (Auto) 2.3, Monocytes # (Auto) 2.3, Eosinophils # (Auto) 0.0, Basophils # (Auto) 0.0, Immature Granulocyte # (Auto) 0.1, Percent Immature Platelet Fraction 28.7, Sodium Level 143, Potassium Level 3.1, Chloride Level 113, Carbon Dioxide Level 15, Anion Gap 15, Blood Urea Nitrogen 24, Creatinine 0.92, Estimat Glomerular Filtration Rate 62, BUN/Creatinine Ratio 26, Glucose Level 73, Calcium Level 8.1, Corrected Calcium 8.7, Total Bilirubin 0.6, Aspartate Amino Transf (AST/SGOT) 107, Alanine Aminotransferase (ALT/SGPT) 44, Alkaline Phosphatase 35, Total Protein 6.1, Albumin 3.3 07/11/22 05:10: White Blood Count 10.2, Red Blood Count 2.90, Hemoglobin 8.1, Hematocrit 26, Mean Corpuscular Volume 89, Mean Corpuscular Hemoglobin 28, Mean Corpuscular Hemoglobin Concent 32, Red Cell Distribution Width 15.1, Platelet Count 43, Mean Platelet Volume , Immature Granulocyte % (Auto) 3, Neutrophils (%) (Auto) 43, Lymphocytes (%) (Auto) 19, Monocytes (%) (Auto) 36, Eosinophils (%) (Auto) 0, Basophils (%) (Auto) 0, Neutrophils # (Auto) 4.4, Lymphocytes # (Auto) 1.9, Monocytes # (Auto) 3.7, Eosinophils # (Auto) 0.0, Basophils # (Auto) 0.0, Immature Granulocyte # (Auto) 0.3, Percent Immature Platelet Fraction 29.1, Sodium Level 140, Potassium Level 3.3, Chloride Level 108, Carbon Dioxide Level 19, Anion Gap 13, Blood Urea Nitrogen 14, Creatinine 0.88, Estimat Glomerular Filtration Rate 65, BUN/Creatinine Ratio 16, Glucose Level 81, Calcium Level 8.3, Corrected Calcium 8.9, Total Bilirubin 0.7, Aspartate Amino Transf (AST/SGOT) 69, Alanine Aminotransferase (ALT/SGPT) 37, Alkaline Phosphatase 38, Total Protein 6.1, Albumin 3.2 Discharge Home Medications: Active Scripts Active Reported Cranberry (Cranberry Fruit) 400 Mg Tablet 400 Mg PO 1300 Zinc (Zinc Amino Acid Chelate) 50 Mg Tablet 50 Mg PO 1300 Probiotic (Lactobacillus Combination No.4) 3 Billion Cell Capsule 1 Each PO DAILY Vitamin D3 (Cholecalciferol (Vitamin D3)) 50 Mcg (2000 Unit) Tablet 50 Mcg PO 1300 Tylenol Extra Strength (Acetaminophen) 500 Mg Tablet 500-1,000 Mg PO Q8H PRN Alprazolam 0.5 Mg Tablet 0.25-0.5 Mg PO TID PRN Neurontin (Gabapentin) 300 Mg Capsule 300 Mg PO TID Prednisone 5 Mg Tablet 5 Mg PO 1300 Fluoxetine HCl 20 Mg Capsule 20 Mg PO 1300 Tramadol HCl 50 Mg Tablet 50 Mg PO BID PRN Pantoprazole Sodium 40 Mg Tablet.dr 40 Mg PO DAILY Euthyrox (Levothyroxine Sodium) 100 Mcg Tablet 100 Mcg PO DAILY Myrbetriq (Mirabegron) 50 Mg Tab.er.24h 50 Mg PO HS Co Q-10 (Ubidecarenone) 100 Mg Capsule 100 Mg PO DAILY Metoprolol Succinate 25 Mg Tab.er.24h 25 Mg PO DAILY Losartan Potassium 100 Mg Tablet 100 Mg PO DAILY Instructions to patient/family Please see electronic discharge instructions given to patient. Clinical Quality Measures DVT/VTE Risk/Contraindication: Contraindications-Pharm: Other *list below* Other: low plts DEONNA STEINER DO Jul 11, 2022 10:13
[2022-07-11 11:05] VITALS: BP 153/78
--- NOTE | 2022-07-11 17:07 | Progress Note ---
JILLIAN ROMERO 07/11/221706: Progress Note 82 year old white female patient presented to ER (07-06-2022) for generalized abdominal pain, nausea, and vomiting with a history of GERD and esophageal stricture. Once in the ER she had an abdominal CT done which showed a hiatal hernia and possible volvulus. She was subsequently admitted, to receive IVF, IV PPI, and antiemetics. After her first dose of Zofran she began having an intense systemic pruritic rash. The next day she began having confusion and episodes of delirium. Her daughter was at her bedside throughout her whole admission and began worrying about her mothers delirium and mental decline. Patient was then ordered to be given Haldol, Ativan, along with an EGD by Dr. Newsome. The daughter declined all of these treatments because she didnt want to worsen her mothers delirium. The EGD was then scheduled to be done outpatient. Patient then developed a UTI and is being treated with Levofloxacin, her potassium began declining during her stay as well and was replaced. Patient continued with worsening delirium and insomnia. Patient was ordered to have a CT head, chest x- ray, and abdominal x-ray on 07-09-2022. All the imaging came back negative, with no acute abnormalities except for aforementioned hiatal hernia. After furthering decline over the night of 07-09-2022 the daughter decided to have Ativan and Haldol administered. Following administration of Ativan and Haldol patient was finally able to sleep. She ended up sleeping from midnight to 7 A.M. The following morning patients delirium was improved and was able to speak in coherent sentences. Her mental status has been improving ever since. Today (07-11-2022) she was able to communicate regarding her current status, but does not remember the prior 24 hours during her intense episodes of delirium. She has no complaints of pain, nausea, or vomiting this morning. She was able to participate in PT and OT yesterday but was to weak to shower. Patient has improved enough to be moved to rehab floor. Both patient and family are not excited about being moved to rehab floor, both were hoping to be able and leave hospital today. Patients son was in the room today and wanted clarification regarding the timeline for being in rehab. PATTI STEINER DO 07/11/222056: Supervisory-Addendum Brief Verification & Attestation Participated in pt care: history, MDM, physical Personally performed: exam, history, MDM, supervision of care Care discussed with: Medical Student Procedures: n/a Results interpretation: Verified all documentation Verification and Attestation of Medical Student E/M Service A medical student performed and documented this service in my presence. I reviewed and verified all information documented by the medical student and made modifications to such information, when appropriate. I personally performed the physical exam and medical decision making. Patti Steiner, Jul 11, 2022,20:57 JILLIAN ROMERO Jul 11, 2022 17:07 PATTI STEINER DO Jul 11, 2022 20:57
[2022-07-12] MEDS ORDERED: POTA10CA43 PO (12:05)
[2022-07-12] MEDS ORDERED: PANT40TA52 PO (12:05)
[2022-07-12] MEDS ORDERED: LEVO750T PO (12:05)
== END 2022-07-11 11:09 | DRG 392 ==
LOC: EDUNIT# 12:07 → ER 12:09 → INTOOBSV 18:17 → 4TH 18:17 → OBSVTOIN 07-07 12:30
PROVIDERS: ADMIT Internal Medicine; ATTEND Internal Medicine
DX: K29.70 Gastritis, unspecified, without bleeding (principal); N39.0 Urinary tract infection, site not specified; M31.6 Other giant cell arteritis; I12.9 Hypertensive chronic kidney disease with stage 1 through stage 4 chronic kidney disease, or unspecified chronic kidney disease; N18.9 Chronic kidney disease, unspecified; D46.9 Myelodysplastic syndrome, unspecified; R01.1 Cardiac murmur, unspecified; E78.00 Pure hypercholesterolemia, unspecified; G62.9 Polyneuropathy, unspecified; K21.9 Gastro-esophageal reflux disease without esophagitis; M19.90 Unspecified osteoarthritis, unspecified site; G89.29 Other chronic pain; M54.9 Dorsalgia, unspecified; F41.9 Anxiety disorder, unspecified; F32.A Depression, unspecified; K44.9 Diaphragmatic hernia without obstruction or gangrene; T45.0X5A Adverse effect of antiallergic and antiemetic drugs, initial encounter; Z85.850 Personal history of malignant neoplasm of thyroid; Z85.42 Personal history of malignant neoplasm of other parts of uterus; Z92.3 Personal history of irradiation; R41.0 Disorientation, unspecified; E87.6 Hypokalemia
CPT/HCPCS: 36415; 36569; 70450; 71045; 74018; 74177; 76937; 80053; 81000; 82271; 82947; 83605; 83690; 84145; 85007; 85025; 85027; 86141; 87040; 87077; 87088; 87186; 94760; 96361; 96374; 96375; 96376; G0378

== ENCOUNTER 2022-07-11 09:58 | Inpatient (IN) | payer MEDICARE ==
[~2022-07-11] VITALS: Ht 162.6 cm; Wt 80.4 kg
[~2022-07-11 09:58] MED LIST changes: +ACET-2267 PO; +ALPR0.5T7 PO; +CHOL200025 PO; +CRAN400T3 PO; +FLUO20CA48 PO; +GABA300C PO; +LACT1CAP74 PO; +LEVO-130 PO; +PANT40TA52 PO; +PRED5TAB PO; +TRAM50TA3 PO; +ZINC50TA51 PO
[2022-07-11] MEDS ORDERED: guaiFENesin/CODEINE (ROBITUSSIN AC) 10ML UDC PO PRN (10:45)
[2022-07-11] MEDS ORDERED: DOCUSATE SODIUM 100 MG (COLACE) CAP PO PRN (10:45)
[2022-07-11] MEDS ORDERED: diphenhydrAMINE 25 MG TAB (BENADRYL) PO PRN ×2 (10:45→12:15)
[2022-07-11] MEDS ORDERED: ACETAMINOPHEN 325 MG TABLET PO PRN ×2 (10:45→12:15)
[2022-07-11] MEDS ORDERED: MELATONIN 3 MG TABLET PO PRN ×2 (10:45→12:15)
[2022-07-11] MEDS ORDERED: BISACODYL 10 MG SUPP (DULCOLAX) PR PRN ×2 (10:45→12:15)
[2022-07-11] MEDS ORDERED: CALCIUM CARBONATE 500 MG (TUMS) TAB.CHEW PO PRN ×2 (10:45→12:15)
[2022-07-11] MEDS ORDERED: LOPERAMIDE 2 MG (IMODIUM) TABLET PO PRN (10:45)
[2022-07-11] MEDS ORDERED: LACTULOSE SYRUP 10GM/15ML (ENULOSE) 30ML UDC PO PRN ×2 (10:45→12:15)
[2022-07-11] MEDS ORDERED: ONDANSETRON 4 MG (ZOFRAN) ORAL DISSOLVE TAB PO PRN (10:45)
[2022-07-11] MEDS ORDERED: ALPRAZolam 0.25 MG (XANAX) TAB PO PRN (10:45)
[2022-07-11] MEDS ORDERED: FLEET ENEMA ADULT 1 EA BTL PR PRN (10:45)
--- NOTE | 2022-07-11 11:21 | Occupational Therapy Eval ---
OT Evaluation-General/PLF Medical Diagnosis Admission Date Jul 11, 2022 at 11:10 Medical Diagnosis: encephalopathy Onset Date: Jul 11, 2022 Therapy Diagnosis Therapy Diagnosis: decreased ADL status Height/Weight Height (Feet): 5 Height (Inches): 4.00 Weight (Pounds): 190 Weight (Ounces): 0.0 Referral Physician: Kvng Moreno Reason: Evaluation/Treatment Medical History Pertinent Medical History: GERD, HTN, Neuropathy Current History ED 07/06 with severe mid-epigastic pain with refractory n/v, hiatal hernia noted. Transfer to DCU 07/11/22 Social History Home: Single Level Current Living Status: Children daughter stays night with pt ADL-Prior Level of Function SCALE: Activities may be completed with or without assistive devices. 3-Qhdjvtubbg-dqyauie completes the activity by him/herself with no assistance from a helper. 5-Set-up or Clean-up Assistance-helper sets up or cleans up; patient completes activity. [place] assists only prior to or following the activity. 4-Supervision or Touching Assistance-helper provides verbal cues and/or touching/steadying and/or contact guard assistance as patient completes activity. Assistance may be provided throughout the activity or intermittently. 3-Partial/Moderate Assistance-helper does LESS THAN HALF the effort. [place] lifts, holds or supports trunk or limbs, but provides less than half the effort. 2-Substantial/Maximal Assistance-helper does MORE THAN HALF the effort. [place] lifts or holds trunk or limbs and provides more than half the effort. 8-Kfpsqtprz-jphksj does ALL the effort. Patient does none of the effort to complete the activity. Or, the assistance of 2 or more helpers is required for the patient to complete the activity. If activity was not attempted, code reason: 7-Patient Refused. 9-Not Applicable-not attempted and the patient did not perform the activity before the current illness, exacerbation or injury. 10-Not Attempted due to Environmental Limitations-(lack of equipment, weather restraints, etc.). 88-Not Attempted due to Medical Conditions or Safety Concerns. ADL PLOF Comments Pt IND with ADLs and functional mobility using FWW at PLOF. Self Care: Independent Functional Cognition: Independent DME/Equipment: Bath Chair, Shower OT Current Status Subjective Pt agreeable to OT Tx, denies pain. Mental Status/Objective Patient Orientation: Person, Place, Time, Situation Current Glasses/Contacts: Yes Hearing Aids: No Dentures/Partials: Yes Hand Dominance: Right Upper Extremity ROM BUE shoulder flexion to approx 150 degrees Upper Extremity Coordination slightly decreased Upper Extremity Sensation tingling/numbness bilateral hands. Upper Extremity Strength grossly 3/5 BUEs ADL-Treatment Therapy Code Descriptions/Definitions Functional [place] Measure: 0=Not Assessed/NA 4=Minimal Assistance 1=Total Assistance 5=Supervision or Setup 2=Maximal Assistance 6=Modified [place] 3=Moderate Assistance 7=Complete IndependenceSCALE: Activities may be completed with or without assistive devices. 3-Fqqfzkmrys-gwqrnbl completes the activity by him/herself with no assistance from a helper. 5-Set-up or Clean-up Assistance-helper sets up or cleans up; patient completes activity. [place] assists only prior to or following the activity. 4-Supervision or Touching Assistance-helper provides verbal cues and/or touching/steadying and/or contact guard assistance as patient completes activity. Assistance may be provided throughout the activity or intermittently. 3-Partial/Moderate Assistance-helper does LESS THAN HALF the effort. [place] lifts, holds or supports trunk or limbs, but provides less than half the effort. 2-Substantial/Maximal Assistance-helper does MORE THAN HALF the effort. [place] lifts or holds trunk or limbs and provides more than half the effort. 1-Qrmmdojvh-ovdvua does ALL the effort. Patient does none of the effort to complete the activity. Or, the assistance of 2 or more helpers is required for the patient to complete the activity. If activity was not attempted, code reason: 7-Patient Refused. 9-Not Applicable-not attempted and the patient did not perform the activity before the current illness, exacerbation or injury. 10-Not Attempted due to Environmental Limitations-(lack of equipment, weather restraints, etc.). 88-Not Attempted due to Medical Conditions or Safety Concerns. Eating: (5) per family report Oral Care: (4) SBA per clinical judgment Showering: (3) Min A, assist to wash feet UE dressing: (5) set up with overhead shirt. LE dressing: (3) Min A with threading feet Footwear: (2) Max A with tennis shoes. Toileting: (3) Min A with clothing management down due to urgency Other Treatments [id number]: OT evaluation complete, pt completed toileting, LE dressing and footwear on BSC. Pt taken to ARU floor to her room. PT evaluation complete 1125- 1135 (not billed). Then pt taken into bathroom transferring to MT. Pt completed showering and dressing, then used FWW to return to bed. Post tx, pt in bed, call light in reach and all needs met. Pt required CGA-SBA for functional mobility/transfers during tx. [id number] OT/PT cotreat due to skill of 2 clinicians required which a occupational rehabilitation aide could not perform due to pt's limitations in strength and activity tolerance and in order to decrease fall risk and focus on higher level balance tasks. OT focused on UE placement, cues for sequencing and safety and ADLs, PT focused on LE placement, gross overall movements, and transfers/mobility. Pt transferred supine to sit EOB, then transferred into bathroom. Pt completed toileting, requiring assistance with pant hike due to fatigue. Pt transferred to EOB for rest breaks. BSC placed over toilet due to pt reports of having a tall toilet at home. Pt then performed functional mobility in ARU common area using FWW. Post tx, pt with PT, all needs met. Education OT Patient Education: Correct positioning, Modified ADL techniques, Progress toward Goal/Update tx plan, Purpose of tx/functional activities Teaching Recipient: Patient Teaching Methods: Discussion Response to Teaching: Verbalize Understanding OT Short Term Goals Short Term Goals Time Frame: Jul 25, 2022 Shower/bathe self: 4 Lower body dressin Putting on/taking off footwear: 4 OT Fdc Goals Fdc Goals Time Frame: Aug 09, 2022 Eating (QC): 6 Oral Hygiene (QC): 6 Toileting Hygiene (QC): 6 Shower/Bathe Self (QC): 6 Upper Body Dressing (QC): 6 Lower Body Dressing (QC): 6 On/Off Footwear (QC): 6 Additional Goals: 1-Demonstrate ADL Tasks, 2-Verbalize Understanding, 3- ImproveStrength/Alfie 1=Demonstrate adherence to instructed precautions during ADL tasks. 2=Patient will verbalize/demonstrate understanding of assistive devices/modifications for ADL. 3=Patient will improve strength/tolerance for activity to enable patient to perform ADL's. OT Education/Plan Problem List/Assessment Assessment: Decreased Activ Tolerance, Decreased UE Strength, Impaired Funct Balance, Impaired I ADL's, Impaired Self-Care Skills Discharge Recommendations Plan/Recommendations: Continue POC Treatment Plan/Plan of Care Patient would benefit from OT for education, treatment and training to promote independence in ADL's, mobility, safety and/or upper extremity function for ADL's. Plan of Care: ADL Retraining, Functional Mobility, Group Exercise/Act as Ind, UE Funct Exercise/Act Treatment Duration: Aug 09, 2022 Frequency: At least 5 of 7 days/Wk (IRF) Estimated Hrs Per Day: 1.5 hours per day Agreement: Yes Rehab Potential: Good Time/GCodes Start Time: 10:58 ([id number]) Stop Time: 14:00 ([id number]) Total Time Billed (hr/min): 90 Billed Treatment Time PT eval [id number] (Not billed), OT tx [id number] & 1044-1269 1, EVL (10'), ADL 3 (60') [id number] Cotreat x30 1, ADL 2 (30') DOROTHY RIVERA OT Jul 11, 2022 11:21
--- NOTE | 2022-07-11 11:48 | Physical Therapy Evaluation ---
PT Evaluation-General Medical Diagnosis Admission Date Jul 11, 2022 at 11:10 Medical Diagnosis: encephalopathy Onset Date: Jul 11, 2022 Therapy Diagnosis Therapy Diagnosis: generalized weakness/debility Height/Weight Height (Feet): 5 Height (Inches): 4.00 Weight (Pounds): 190 Weight (Ounces): 0.0 Referral Physician: Kvng Reason for Referral: Evaluation/Treatment Medical History Pertinent Medical History: GERD, HTN, Neuropathy History of Falls (past yr): Yes Prior Surgery (last 100 days): No Current History transferred to [facility] Reviewed History: Yes Social History Home: Single Level Current Living Status: Alone Entry Into Home: Stairs With Railing PT Steps Into Home: 3 Prior Prior Level of Function SCALE: Activities may be completed with or without assistive devices. 4-Aulmnnkdzo-kdkhrbi completes the activity by him/herself with no assistance from a helper. 5-Set-up or Clean-up Assistance-helper sets up or cleans up; patient completes activity. [place] assists only prior to or following the activity. 4-Supervision or Touching Assistance-helper provides verbal cues and/or touching/steadying and/or contact guard assistance as patient completes activity. Assistance may be provided throughout the activity or intermittently. 3-Partial/Moderate Assistance-helper does LESS THAN HALF the effort. [place] lifts, holds or supports trunk or limbs, but provides less than half the effort. 2-Substantial/Maximal Assistance-helper does MORE THAN HALF the effort. [place] lifts or holds trunk or limbs and provides more than half the effort. 5-Eapspqhrt-jlzydi does ALL the effort. Patient does none of the effort to complete the activity. Or, the assistance of 2 or more helpers is required for the patient to complete the activity. If activity was not attempted, code reason: 7-Patient Refused. 9-Not Applicable-not attempted and the patient did not perform the activity before the current illness, exacerbation or injury. 10-Not Attempted due to Environmental Limitations-(lack of equipment, weather restraints, etc.). 88-Not Attempted due to Medical Conditions or Safety Concerns. Bed Mobility: 6 Transfers (B,C,W/C): 6 Gait: 6 Stairs: 6 Indoor Mobility (Ambulation): Independent Stairs: Independent Prior Devices Use: Walker PT Evaluation-Current Subjective Patient agrees to PT. She does report fatigue. Pain Section J - Health Conditions 1. Rarely or not at all 2. Occasionally 3. Frequently 4. Almost constantly 8. Unable to answer Pain Effect on Sleep: 1 Pain Interference with Therapy: 2 Pain Interference w/Day-to-Day: 2 Pt/Family Goals return to home Objective Patient Orientation: Person, Time, Situation ROM/Strength ROM Lower Extremities bilateral LE WFL Strength Lower Extremities 3/5 right knee flexion/extension; 3/5 hip flexion;3/5 DF/PF left knee flexion 3/5; hip flexion 3/5; DF/PF 3/5 Sensory Vision: Functional Hearing: Functional Hand Dominance: Right Transfers Roll Left & Right (QC): 3 Sit to Lying (QC): 3 Lying to Sitting/Side of Bed(Q: 3 Sit to Stand (QC): 3 Chair/Ryb-ik-Ytqhr Xfer(QC): 3 Toilet Transfer (QC): 3 Car Transfer (QC): 3 Gait Does the Patient Walk?: Yes Mode of Locomotion: Walk Anticipated Mode of Locomotion: Walk Walk 10 feet (QC): 3 Walk 50 ft with 2 Turns(QC): 3 Walk 150 ft (QC): 3 Walking 10ft/uneven surface-QC: 3 Distance: 150' x 2 Gait Assistive Device: FWW Comments/Gait Description slow, steady, functional gait sequence Wheelchair Training Wheel 50 ft with 2 turns (QC): 9 Wheel 150 ft (QC): 9 Stairs #of Steps: 1 1 Step (curb) (QC): 3 4 Steps (QC): 88 12 Steps (QC): 88 Balance Sitting Static: Normal Sitting Dynamic: Normal Standing Static: Fair Standing Dynamic: Fair Picking up an Object (QC): 88 Assessment/Needs 82 y.o. female, will benefit from skilled PT to address functional strength and mobility to improve current LOF to safely return to home at maximum LOF. Rehab Potential: Fair PT [employer] Goals Group Home Goals PT Group Home Goals Time Frame: Aug 17, 2022 Scoring Section J - Health Conditions 1. Rarely or not at all 2. Occasionally 3. Frequently 4. Almost constantly 8. Unable to answer Pain Effect on Sleep: 1 Pain Interference with Therapy: 1 Pain Interference w/Day-to-Day: 1 Roll Left to Right (QC): 6 Sit to Lying (QC): 6 Lying-Sitting on Side/Bed(QC): 6 Sit to Stand (QC): 6 Chair/Auj-td-Wkxim Xfer(QC): 6 Car Transfer (QC): 6 Does the Patient Walk: Yes Walk 10 feet (QC): 6 Walk 10ft-Uneven Surface(QC): 6 Walk 50ft with 2 Turns (QC): 6 Walk 150 ft (QC): 6 Gait Assistive Device: FWW # of Steps: 12 1 Step (curb) (QC): 4 4 Steps (QC): 4 12 Steps (QC): 4 Stairs Level Of Assist: 4 Picking up an Object (QC): 6 PT Plan Problem List Problem List: Activity Tolerance, Functional Strength, Safety, Balance, Gait, Transfer, Bed Mobility Treatment/Plan Treatment Plan: Continue Plan of Care Treatment Plan: Bed Mobility, Concurrent Therapy, Education, Functional Activity Alfie, Functional Strength, Group Therapy, Gait, Safety, Therapeutic Exercise, Transfers Treatment Duration: Aug 17, 2022 Frequency: At least 5 of 7 days/Wk (IRF) Estimated Hrs Per Day: 1.5 hours per day Patient and/or Family Agrees t: Yes Time/GCodes Time In: 1125 Time Out: 1135 Total Billed Treatment Time: 10 Total Billed Treatment 1 visit EVModC 10 min JANY GOMEZ PT Jul 11, 2022 11:47
[2022-07-11 11:57] VITALS: BP 111/70
[2022-07-11] MEDS ORDERED: HALOPERIDOL 5 MG/ML (HALDOL) VIAL IM PRN (12:15)
[2022-07-11] MEDS ORDERED: diphenhydrAMINE 50 MG/ML INJ (BENADRYL) IVP PRN (12:15)
[2022-07-11] MEDS ORDERED: hydrALAZINE (APESOLINE) 20 MG/ML VIAL IV PRN (12:15)
[2022-07-11] MEDS ORDERED: LORazepam 0.5 MG (ATIVAN) TABLET PO PRN (12:15)
[2022-07-11] MEDS ORDERED: inSUlin ASPART (NovoLOG) 1 UNIT/0.01 ML (CHARGE PER UNIT) SC PRN (12:15)
[2022-07-11] MEDS ORDERED: PROCHLORPERAZINE 10 MG/2ML INJ (COMPAZINE) IV PRN (12:15)
[2022-07-11] MEDS ORDERED: ANTACID SUSP 30 ML UDC (MYLANTA) PO PRN (12:15)
[2022-07-11] MEDS ORDERED: METOCLOPRAMIDE INJ 10 MG/2 ML (REGLAN) IVP PRN (12:15)
[2022-07-11] MEDS ORDERED: MILK OF MAGNESIA 400 MG/5 ML 30 ML UDC PO PRN (12:15)
[2022-07-11] MEDS ORDERED: ONDANSETRON 4 MG/2 ML (SDV) Z0FRAN IVP PRN (12:15)
[2022-07-11] MEDS ORDERED: polyethylene glycoL POWDER 17 GM (MIRALAX) PACK PO PRN (12:15)
[2022-07-11] MEDS ORDERED: RT-ALBUTEROL SULF 2.5 MG/3 ML PRE-MIX VIAL INH PRN (12:15)
--- NOTE | 2022-07-11 12:17 | PM&R Post Admission Assessment ---
PM&R Date of Visit: Jul 11, 2022 Time of Visit: 13:00 History of Present Illness CC: Encephalopathy HPI: This is an 82yoWF clinic patient of mine who had a very complicated ho spital course due to severe gastritis of the HH and N/V unable to tolerate PO but delirium occurred and became severe complicated by her daughter's refusal of multiple standard of care medications to help resolve her acute issues even though multiple long conversations were initiated to help reassure her daughter. Patient ultimately had improvement in all of her issues but still remained frightened and weak and the decision was made to admit to IRF. Currently she is doing much better and wants to work on regaining independence. Med-surg DC summary: 82 year old white female patient presented to ER (07-06-2022) for generalized abdominal pain, nausea, and vomiting with a history of GERD and esophageal stricture. Once in the ER she had an abdominal CT done which showed a hiatal hernia and possible volvulus. She was subsequently admitted, to receive IVF, IV PPI, and antiemetics. After her first dose of Zofran she began having an intense systemic pruritic rash. The next day she began having confusion and episodes of delirium. Her daughter was at her bedside throughout her whole admission and began worrying about her mothers delirium and mental decline. Patient was then ordered to be given Haldol, Ativan, along with an EGD by Dr. Newsome. The daughter declined all of these treatments because she didnt want to worsen her mothers delirium. The EGD was then scheduled to be done outpatient. Patient then developed a UTI and is being treated with Levofloxacin, her potassium began declining during her stay as well and was replaced. Patient continued with worsening delirium and insomnia. Patient was ordered to have a CT head, chest x- ray, and abdominal x-ray on 07-09-2022. All the imaging came back negative, with no acute abnormalities except for aforementioned hiatal hernia. After furthering decline over the night of 07-09-2022 the daughter decided to have Ativan and Haldol administered. Following administration of Ativan and Haldol patient was finally able to sleep. She ended up sleeping from midnight to 7 A.M. The following morning patients delirium was improved and was able to speak in coherent sentences. Her mental status has been improving ever since. Today (07-11-2022) she was able to communicate regarding her current status, but does not remember the prior 24 hours during her intense episodes of delirium. She has no complaints of pain, nausea, or vomiting this morning. She was able to participate in PT and OT yesterday but was to weak to shower. Patient has improved enough to be moved to rehab floor. Both patient and family are not excited about being moved to rehab floor, both were hoping to be able and leave hospital today. Patients son was in the room today and wanted clarification regarding the timeline for being in rehab. Past Zztccvs-Gikwal-Onqzzz Hx Past Med/Social Hx: Reviewed Nursing Past Med/Soc Hx, Reviewed and Corrections made Patient Social History Marrital Status: Employed/Student: retired Smoking Status: Never a Smoker Recent Hopitalizations: No Immunizations Up To Date Date of Pneumonia Vaccine: Oct 27, 2013 Seasonal Allergies Seasonal Allergies: No Past Medical History Surgeries: Abdominal, Eye Surgery, Gallbladder, Hysterectomy, Joint Replacemen t, Orthopedic Cardiac: High Cholesterol, Hypertension Neurological: Neuropathy Reproductive: No Genitourinary: Bladder Infection Gastrointestinal: Gastroesophageal Reflux Musculoskeletal: Degenerate Disk Disease, Arthritis, Chronic Back Pain Loss of Vision: Right Hearing Impairment: Hard of Hearing Cancer: Thyroid, Uterine Did You Recieve Any Treatments: Yes What Type of Treatment Did You: Radiation, Surgical Intervention Psychosocial: Anxiety, Depression Skin/Integumentary: Pruritis History of Blood Disorders: Yes (Giant cell arteritis, myelodysplastic disorder with chronic thrombocytopeni) Adverse Reaction to Blood Schaefer: No Prior Level of Function Bed Mobility: 6 Transfers: 6 Gait: 6 Stairs: 6 Indoor Mobility (Ambulation): Independent Stairs: Independent Prior Devices Use: Walker Current Level of Fuctioning Roll Left to Right: 3 Sit to Lyin Lying to Sitting/Side of Bed: 3 Sit to Stand: 3 Chair/Obt-he-Ebyxm Xfer: 3 Car Transfer: 3 Does the Patient Walk: Yes Mode of Locomotion: Walk Anticipated Mode of Locomotion: Walk Walk 10 feet: 3 Walk 50 ft with 2 Turns: 3 Walk 150 ft: 3 Walking 10ft on uneven surface: 3 Gait Assistive Device: FWW Wheel 50 ft with 2 turns: 9 Wheel 150 ft: 9 #of Steps: 1 1 Step (curb): 3 4 Steps: 88 12 Steps: 88 Picking up an Object: 88 PM&R Allergy/Meds/Data Review Allergies Coded Allergies: fentanyl (Verified Allergy, Intermediate, Rash, 07/08/22) RASH AND CONFUSION hydromorphone (Verified Allergy, Intermediate, 07/08/22) CONFUSION Penicillins (Verified Allergy, Unknown, RASH, 05/09/17) Sulfa (Sulfonamide Antibiotics) (Verified Allergy, Unknown, RASH, 05/09/17) azithromycin (Verified Allergy, Unknown, RASH, 05/09/17) cephalexin (Verified Allergy, Unknown, RASH, 05/09/17) clindamycin (Verified Allergy, Unknown, 07/06/22) naproxen (Verified Adverse Reaction, Unknown, 05/09/17) HEADACHE Home Medications Scheduled Cholecalciferol (Vitamin D3) (Vitamin D3), 50 MCG PO 1300, (Reported) Cranberry Fruit (Cranberry), 400 MG PO 1300, (Reported) Fluoxetine HCl (Fluoxetine HCl), 20 MG PO 1300, (Reported) Gabapentin (Neurontin), 300 MG PO TID, (Reported) Lactobacillus Combination No.4 (Probiotic), 1 EACH PO DAILY, (Reported) Levothyroxine Sodium (Euthyrox), 100 MCG PO DAILY, (Reported) Losartan Potassium (Losartan Potassium), 100 MG PO DAILY, (Reported) Metoprolol Succinate (Metoprolol Succinate), 25 MG PO DAILY, (Reported) Mirabegron (Myrbetriq), 50 MG PO HS, (Reported) Pantoprazole Sodium (Pantoprazole Sodium), 40 MG PO DAILY, (Reported) Prednisone (Prednisone), 5 MG PO 1300, (Reported) Ubidecarenone (Co Q-10), 100 MG PO DAILY, (Reported) Zinc Amino Acid Chelate (Zinc), 50 MG PO 1300, (Reported) Scheduled PRN Acetaminophen (Tylenol Extra Strength), 500-1,000 MG PO Q8H PRN for PAIN-MILD (1-4), (Reported) Alprazolam (Alprazolam), 0.25-0.5 MG PO TID PRN for ANXIETY, (Reported) Tramadol HCl (Tramadol HCl), 50 MG PO BID PRN for PAIN-MODERATE (5-7), (Reported) Discontinued Medications Alprazolam (Xanax), 0.5 MG PO PRN, (Reported) Discontinued Reason: No Longer Taking Cholecalciferol (Vitamin D3) (Vitamin D), 2,000 UNIT PO DAILY, (Reported) Discontinued Reason: No Longer Taking Gabapentin (Gabapentin), 300 MG PO TID, (Reported) Discontinued Reason: No Longer Taking Levothyroxine Sodium (Levothyroxine Sodium), 112 MCG PO, (Reported) Discontinued Reason: No Longer Taking Levothyroxine Sodium (Levothyroxine Sodium), 100 MCG PO UD, (Reported) Discontinued Reason: No Longer Taking Rabeprazole Sodium (Aciphex), 20 MG PO DAILY, (Reported) Discontinued Reason: No Longer Taking Rosuvastatin Calcium (Crestor), 10 MG PO TWICE WEEKLY, (Reported) Discontinued Reason: No Longer Taking Tramadol HCl (Tramadol HCl), 50 MG PO PRN, (Reported) Discontinued Reason: No Longer Taking Current Medications Current Medications Reviewed Review of Systems Constitutional: see HPI, dizziness, malaise, weakness EENTM: no symptoms reported Respiratory: no symptoms reported Cardiovascular: no symptoms reported Gastrointestinal: no symptoms reported Genitourinary: decreased output Musculoskeletal: back pain, joint pain Skin: no symptoms reported Psychiatric/Neurological: Anxiety, Depressed, Weakness All Other Systems Reviewed Negative Unless Noted: Yes Physical Exam Physical Exam Vital Signs Vital Signs - First Documented 07/11/22 11:57 Temp 36.9 Pulse 82 Resp 16 B/P (MAP) 111/70 (84) Pulse Ox 100 O2 Delivery Room Air Capillary Refill : Height, Weight, BMI Height: 5'4.00" Weight: 190lbs. 0.0oz. 86.611023mm; 32.00 BMI Method: General Appearance: No Apparent Distress, WD/WN, Chronically ill Eyes: Bilateral Eye Normal Inspection, Bilateral Eye PERRL HEENT: PERRL/EOMI, Normal ENT Inspection, Pharynx Normal Neck: Full Range of Motion, Normal Inspection, Non Tender, Supple, Carotid Bruit Respiratory: Chest Non Tender, Lungs Clear, Normal Breath Sounds, No Accessory Muscle Use, No Respiratory Distress Cardiovascular: Regular Rate, Rhythm, No Edema, No Gallop, No JVD, No Murmur, Normal Peripheral Pulses Gastrointestinal: Normal Bowel Sounds, No Organomegaly, No Pulsatile Mass, Non Tender, Soft Back: Normal Inspection, No CVA Tenderness, No Vertebral Tenderness Extremity: Normal Capillary Refill, Normal Inspection, Normal Range of Motion, Non Tender, No Calf Tenderness, No Pedal Edema Neurologic/Psychiatric: Alert, Oriented x3, bed and breakfast innkeeper II-XII Norm as Tested, Depressed Affect, Motor Weakness (generalized weakness) Skin: Normal Color, Warm/Dry Lymphatic: No Adenopathy PM&R Medical Assessment & Plan REHAB/MEDICAL ASSESSMENT AND PLAN: REHAB IMPAIRMENT GROUP: Encephalopathy ETIOLOGIC DIAGNOSIS: Encephalopathy The comorbidities that impact the patients function and/or functional outcome by: advanced age, lives alone s/p severe delrium, weakness, fall risk REHAB PLAN: The patient is being admitted to our comprehensive inpatient rehabilitation facility and can tolerate the intensity of service consisting of at least: 180 minutes of therapy a day, 5 out of 7 days a week Rehab treatment will consist of: PT OT will focus on regaining strength and increasing stamina in order to return home to independence The patient/family has a good understanding of our discharge process and will benefit from an interdisciplinary inpatient rehabilitation program. The patient has potential to make improvement and is in need of at least two of the following multidisciplinary therapies including but not limited to physical, occupational, speech, and prosthetics and orthotics. Additionally the patient will need services from respiratory, nutritional services, wound care, psychology, etc. (Customize this to each patient). Given the patients complex condition and risk of further medical complications, rehabilitation services cannot be safely or effectively provided at a lower level of care such as a care home facility. BARRIERS TO DISCHARGE: Lives alone ESTIMATED LOS: 5 days DISPOSITION: Home RELEVANT CHANGES SINCE PREADMISSION SCREENING: I have compared the patients medical and functional status at the time of the preadmission screening and there are: no changes PROGNOSIS: Good REHABILITATION GOALS: 1. PT OT will focus on regaining strength and increasing stamina in order to return home to independence All the above goals were reviewed with the patient and he/she is in agreement. By signing this document, I acknowledge that I have personally performed a full physical examination on this patient within 24 hours of admission to this inpatient rehabilitation facility and have determined the patient to be able to tolerate the above course of treatment at an intensive level for a reasonable period of time. I will be completing a detailed individualized Plan of Care for this patient by day #4 of the patients stay based upon the Preadmission Screen, the Post-Admission Evaluation, and the therapy evaluations. Admission Dx/Comorbidities: (1) Encephalopathy ICD Codes: G93.40 - Encephalopathy, unspecified Assessment/Plan Assessment and Plan Assess & Plan/Chief Complaint Assessment and Plan: Encephalopathy/Acute delirium secondary to acute medical illness refractory N/V with gastritis of HH Acute systemic allergic rash secondary to medication-resolving Leukocytosis secondary to steroid administration Decadron to help N/V on admit now resolved and DC med UTI on Levaquin Proteus Anemia acute on chronic 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 Newsome consultation Continue to monitor labs Monitor hemoglobin-transfuse if necessary PICC PT OT DEONNA STEINER DO Jul 11, 2022 12:17
[2022-07-11] MEDS ORDERED: DICLOFENAC 1% GEL 100 GM (VOLTAREN) TUBE TOP SCH (13:00)
[2022-07-11] MEDS: FLUoxetine HCL 20 MG (PROzac) CAP PO SCH (13:26)
[2022-07-11] MEDS: GABAPENTIN 300 MG (NEURONTIN) CAP PO SCH ×2 (13:26→20:58)
--- NOTE | 2022-07-11 14:47 | Physical Therapy Daily Note ---
PT Daily Note-Current Subjective Pt. and family present. Pt. agrees to PT OT co Rx for ADLs in bthrm, with BSC adjustment over toilet, balance challenges for pants etc. Pt. denies pain Pain Location: No Pain Reported Mental Status Patient Orientation: Normal For Age Transfers SCALE: Activities may be completed with or without assistive devices. 5-Cymcumqfrq-rnrasdv completes the activity by him/herself with no assistance from a helper. 5-Set-up or Clean-up Assistance-helper sets up or cleans up; patient completes activity. [place] assists only prior to or following the activity. 4-Supervision or Touching Assistance-helper provides verbal cues and/or touching/steadying and/or contact guard assistance as patient completes activity. Assistance may be provided throughout the activity or intermittently. 3-Partial/Moderate Assistance-helper does LESS THAN HALF the effort. [place] lifts, holds or supports trunk or limbs, but provides less than half the effort. 2-Substantial/Maximal Assistance-helper does MORE THAN HALF the effort. [place] lifts or holds trunk or limbs and provides more than half the effort. 2-Dunmljvyh-khixls does ALL the effort. Patient does none of the effort to complete the activity. Or, the assistance of 2 or more helpers is required for the patient to complete the activity. If activity was not attempted, code reason: 7-Patient Refused. 9-Not Applicable-not attempted and the patient did not perform the activity before the current illness, exacerbation or injury. 10-Not Attempted due to Environmental Limitations-(lack of equipment, weather restraints, etc.). 88-Not Attempted due to Medical Conditions or Safety Concerns. Roll Left & Right (QC): 6 Sit to Lying (QC): 6 Lying to Sitting/Side of Bed(Q: 6 Sit to Stand (QC): 6 Chair/Ukg-wf-Respb Xfer(QC): 6 Toilet Transfer (QC): 4 pt. struggled to stand from hospital standard size toilet seat. OT retrieved BSC and prepared and adjusted for easier height and use of arms on chair. pt. was instructed in safe chair approach for turning, hands on arms of chair and safety etc Gait Training Does the Patient Walk?: Yes Walk 10 feet (QC): 4 Walk 50 ft with 2 Turns(QC): 4 Walk 150 ft (QC): 4 Gait Persons Needed: 1 Gait Assistive Device: FWW pt. fatigued and requested breaks but was able to complete 165 ft x 1, 20 ft x2, 55ftx3 no LOB, stops in standing for rest x 2 Exercises Supine Ex: Bridging, Ankle pumps, Rolling, Lower trunk rotation, Heel Slides, Short Arc Quads, Straight leg raise, Hip abd/add Supine Reps: 12 NuStep Minutes: 5 NuStep Workload: 1 Treatments PT OT co Rx initial 30 m for toileting, balance, ADLs and initiation to ARU expectations and practices. Last 50 min pt. was seen for gait training, therex, and bed mob TRFs etc. pt. i bed with family in the room , wyatt at side and instructions for ordering meals and use of lights and call bells. Assessment Current Status: Good Progress fatigued with rx, some dyspnea noted, O2 sats >90% PT [place] Goals Senior Living Goals PT Senior Living Goals Time Frame: Aug 17, 2022 Roll Left & Right (QC): 6 Sit to Lying (QC): 6 Lying-Sitting on Side/Bed(QC): 6 Sit to Stand (QC): 6 Chair/Zpt-le-Svhus Xfer(QC): 6 Toilet Transfer (QC): 4 Car Transfer (QC): 6 Does the Patient Walk: Yes Walk 10 feet (QC): 6 Walk 50ft with 2 Turns (QC): 6 Walk 150 ft (QC): 6 Walking 10ft on Uneven Surface: 6 1 Step (curb) (QC): 4 4 Steps (QC): 4 12 Steps (QC): 4 Picking up an Object (QC): 6 Does the Pt use WC or Scooter?: No Wheel 50 feet with 2 turns (QC: 9 Type: N/A Wheel 150 feet: 9 Type: N/A PT Plan Treatment/Plan Treatment Plan: Continue Plan of Care Treatment Plan: Bed Mobility, Concurrent Therapy, Education, Functional Activity Alfie, Functional Strength, Group Therapy, Gait, Safety, Therapeutic Exercise, Transfers Treatment Duration: Aug 17, 2022 Frequency: At least 5 of 7 days/Wk (IRF) Estimated Hrs Per Day: 1.5 hours per day Patient and/or Family Agrees t: Yes Safety Risks/Education Patient Education: Gait Training, Transfer Techniques, Correct Positioning, Disease Process, Safety Issues Teaching Recipient: Patient Teaching Methods: Demonstration, Discussion Response to Teaching: Verbalize Understanding, Return Demonstration, Reinforcement Needed Time/GCodes Time In: 1330 Time Out: 1450 Total Billed Treatment Time: 80 Total Billed Treatment 1,FA30m,GT25m,EX25m JOSEFINA PATRICK RING SEWER Jul 11, 2022 14:47
[2022-07-11] MEDS: DOCUSATE SODIUM 100 MG (COLACE) CAP PO SCH (20:58)
[2022-07-11] MEDS ORDERED: DOCUSATE SODIUM 100 MG (COLACE) CAP PO SCH (21:00)
[2022-07-11] MEDS ORDERED: SENNA W/DOCUSATE (SENOKOT S) TABLET PO SCH (21:00)
[2022-07-11] MEDS ORDERED: MIRABEGRON 25 MG TAB (MYRBETRIQ) PO SCH (21:00)
[2022-07-11 21:47] VITALS: BP 114/73
[2022-07-11] MEDS: polyethylene glycoL POWDER 17 GM (MIRALAX) PACK PO SCH (21:56)
[2022-07-11] MEDS: SENNOSIDES 8.6 MG (SENOKOT) TAB PO SCH (21:56)
[2022-07-12 06:09] LABS: EOSINOPHILS % (AUTO) 0 % (0-10); HEMATOCRIT 26 % (35-52); HEMOGLOBIN 8.3 g/dL (11.5-16.0); MEAN CORPUSCULAR HGB CONC 32 g/dL (32-36)
[2022-07-12 06:11] LABS: BASOPHILS % (AUTO) 0 % (0-10); LYMPHOCYTES % (AUTO) 21 % (12-44); MEAN CORPUSCULAR HEMOGLOBIN 28 pg (25-34); MEAN CORPUSCULAR VOLUME 88 fL (80-99); MONOCYTES # (AUTO) 3.5 10^3/uL (0.0-1.0); MONOCYTES % (AUTO) 35 % (0-12); NEUTROPHILS # (AUTO) 3.7 10^3/uL (1.8-7.8); NEUTROPHILS % (AUTO) 38 % (42-75); PLATELET COUNT 45 10^3/uL (130-400); WHITE BLOOD COUNT 9.8 10^3/uL (4.3-11.0)
[2022-07-12 06:34] LABS: ALBUMIN 3.1 GM/DL (3.2-4.5); BILIRUBIN,TOTAL 0.5 MG/DL (0.1-1.0); CREATININE SERUM 0.95 MG/DL (0.60-1.30); POTASSIUM 3.1 MMOL/L (3.6-5.0); TOTAL PROTEIN 5.9 GM/DL (6.4-8.2)
[2022-07-12] MEDS ORDERED: PANTOPRAZOLE 40 MG (PROTONIX) TAB PO SCH (07:00)
[2022-07-12] MEDS ORDERED: LEVOTHYROXINE 100 MCG (LEVOTHROID) TAB PO SCH (07:00)
[2022-07-12 07:39] VITALS: BP 136/63
[2022-07-12] MEDS: SENNOSIDES 8.6 MG (SENOKOT) TAB PO SCH (08:42)
[2022-07-12] MEDS: DOCUSATE SODIUM 100 MG (COLACE) CAP PO SCH (08:42)
[2022-07-12] MEDS: GABAPENTIN 300 MG (NEURONTIN) CAP PO SCH ×2 (08:42→13:48)
--- NOTE | 2022-07-12 08:44 | Occupational Ther Daily Note ---
OT Current Status-Daily Note Subjective Pt sitting alert in bed. Pt agrees to therapy. No c/o pain at this time. Mental Status/Objective Patient Orientation: Person, Place, Time, Situation Attachments: IV Acute change in mental status: 0 Inattention: 0 Disorganized thinkin Altered level of consciousness: 0 ADL-Treatment 1st session([id number]) Pt supine to EOB independent. After set up pt donned/doffed UB clothing. Pt educated in AE, using skilled instruction and demonstration to don LB clothing, pt then completed tasks. Pt used figure 4 to don R LE footwear. After attempt to don L LE footwear pt educated in AE. After skilled instruction and demonstration pt continued to require assistance to don left shoe. Pt EOB to stand with FWW, independent. Pt ambulated to the toilet and transferred. Pt independent in toilet hygiene. Pt independent in oral care and personal hygiene, sitting at sink. Pt ambulated from bathroom to recliner using FWW independent. Pt left in recliner call light/phone in reach. Family in room. 2nd session(12:55-13:10) Pt independent in sit to stand from recliner using FWW. Pt ambulates to bathroom using FWW independent. Pt toilet transfer and hygiene independent. Pt ambulates with FWW to recliner, independently. Pt left in recliner with call light/ phone in reach. All needs met in room. Therapy Code Descriptions/Definitions Functional [place] Measure: 0=Not Assessed/NA 4=Minimal Assistance 1=Total Assistance 5=Supervision or Setup 2=Maximal Assistance 6=Modified [place] 3=Moderate Assistance 7=Complete IndependenceSCALE: Activities may be completed with or without assistive devices. 2-Awboxybwrs-sekixcq completes the activity by him/herself with no assistance from a helper. 5-Set-up or Clean-up Assistance-helper sets up or cleans up; patient completes activity. [place] assists only prior to or following the activity. 4-Supervision or Touching Assistance-helper provides verbal cues and/or touching/steadying and/or contact guard assistance as patient completes activity. Assistance may be provided throughout the activity or intermittently. 3-Partial/Moderate Assistance-helper does LESS THAN HALF the effort. [place] lifts, holds or supports trunk or limbs, but provides less than half the effort. 2-Substantial/Maximal Assistance-helper does MORE THAN HALF the effort. [place] lifts or holds trunk or limbs and provides more than half the effort. 9-Borfgaokd-vyfxbf does ALL the effort. Patient does none of the effort to complete the activity. Or, the assistance of 2 or more helpers is required for the patient to complete the activity. If activity was not attempted, code reason: 7-Patient Refused. 9-Not Applicable-not attempted and the patient did not perform the activity before the current illness, exacerbation or injury. 10-Not Attempted due to Environmental Limitations-(lack of equipment, weather restraints, etc.). 88-Not Attempted due to Medical Conditions or Safety Concerns. Eating (QC): 6 (Per clinical judgement) Oral Hygiene (QC): 6 Upper Body Dressing (QC): 5 Lower Body Dressing (QC): 5 On/Off Footwear: 3 (Mod A) Toileting Hygiene (QC): 6 Toilet Transfer (QC): 6 Education OT Patient Education: Use of adapted equipment Teaching Recipient: Patient Teaching Methods: Demonstration, Discussion Response to Teaching: Verbalize Understanding, Return Demonstration, Reinforcement Needed OT Short Term Goals Short Term Goals Time Frame: Jul 25, 2022 Shower/bathe self: 4 Lower body dressin Putting on/taking off footwear: 4 OT Supervisor Show Operations Goals Supervisor Show Operations Goals Time Frame: Aug 09, 2022 Acute change in mental status: 0 Inattention: 0 Disorganized thinkin Altered level of consciousness: 0 Eating (QC): 6 Oral Hygiene (QC): 6 Toileting Hygiene (QC): 6 Shower/Bathe Self (QC): 6 Upper Body Dressing (QC): 6 Lower Body Dressing (QC): 6 On/Off Footwear (QC): 6 Additional Goals: 1-Demonstrate ADL Tasks, 2-Verbalize Understanding, 3- ImproveStrength/Alfie 1=Demonstrate adherence to instructed precautions during ADL tasks. 2=Patient will verbalize/demonstrate understanding of assistive devices/modifications for ADL. 3=Patient will improve strength/tolerance for activity to enable patient to perform ADL's. OT Education/Plan Problem List/Assessment Assessment: Decreased Activ Tolerance, Decreased Safety Aware, Decreased UE Strength Discharge Recommendations Plan/Recommendations: Continue POC Treatment Plan/Plan of Care Patient would benefit from OT for education, treatment and training to promote independence in ADL's, mobility, safety and/or upper extremity function for ADL's. Plan of Care: ADL Retraining, Functional Mobility, Group Exercise/Act as Ind, UE Funct Exercise/Act Treatment Duration: Aug 09, 2022 Frequency: At least 5 of 7 days/Wk (IRF) Estimated Hrs Per Day: 1.5 hours per day Agreement: Yes Rehab Potential: Good Time/GCodes Start Time: 08:00 Stop Time: 09:00 Total Time Billed (hr/min): 60 Billed Treatment Time 1st session([id number]): 1 visit ADL 4 (60 min) 2nd session([id number]): 1 visit ADL 1 (15 min) SUKH JC Jul 12, 2022 08:44
[2022-07-12] MEDS: polyethylene glycoL POWDER 17 GM (MIRALAX) PACK PO SCH (08:45)
[2022-07-12] MEDS ORDERED: LOSARTAN 100 MG (COZAAR) TABLET PO SCH (09:00)
--- NOTE | 2022-07-12 11:27 | ST Cognitive Linguistic Eval ---
Speech Evaluation-General Medical Diagnosis Encephalopathy Onset Date: Jul 11, 2022 Therapy Diagnosis Therapy Diagnosis: Intact Neurocognitive Skills Precautions Precautions: Fall Precautions/Isolations: Fall Prevention, Standard Precautions Referral Referring Physician: Dr. Calderon Reason for Referral: Evaluation/Treatment Medical History Pertinent Medical History: GERD, HTN, Neuropathy Current History The patient is an 82 year-old female with a past medical history of high cholesterol, HTN, GERD, anxiety and depression, who presented to ARU due to recovering delirium and weakness. Reviewed History: Yes Social History Current Living Status: Children Speech PLF-Current Status Prior Level of Function The patient denies current confusion or difficulties with speech, language, or cognition. Subjective The patient was seated upright in her recliner, awake and alert upon entrance to her room by the clinician. The patient greeted the clinician appropriately and was agreeable to participation in the cognitive linguistic treatment assessment. Language Eval: Auditory Comprehends Simple Yes/No Ques: Functional Indent/Objects Multiple Benjamin: Functional Ident/Pics in Multiple Benjamin: Functional Follows 1-Step Commands: Functional Follows General Conversations: Functional Language Eval: Verbal Language Completes Spontaneous Greeting: Functional Produces Auto, Serial Info: Functional Imitates Simple Words/Phrases: Functional Word Finding: Functional Requests Basic Needs: Functional States Basic Personal Info: Functional Language Evaluation: Reading Comprehends Single Nouns: Functional Follows Simple Written Direct: Functional Language Evaluation: Writing Writes to Simple Dictation: Functional Cognitive Patient Orientation The patient was independently oriented to self, location, month, day of the week, and year. 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 Objective Formal/Standardized Tests [facility] Mental Status Exam (UMS) Results The patient demonstrated a result of +28/30 on the UMS correlating to a score within normal limits. Oral Motor/Speech Production The patient does not display dysarthria or apraxia of speech. The patient remains 100% intelligible in known and unknown contexts. Impression The patient demonstrated cognitive linguistic skills within normal limits. Speech Patient Assess Expression of Ideas/Wants: Expression (4) Understanding Verbal Content: Understands (4) Brief Interview-Mental Status: Yes Repetition of Three Words: Three (3) Temporal Orientation: Year: Correct (3) Temporal Orientation: Month: Accurate within 5 days(2) Temporal Orientation: Day: Correct (1) Recall : Wear to say "Sock": Yes, no cue required (2) Recall : Color: Yes, no cue required (2) Recall : Bed: Yes, no cue required (2) Memory/Recall Ability: Current season, Location of own room, That he or she is in a hsp/hsp unit Speech-Plan Treatment Plan Speech Therapy Treatment Plan: Discontinue ST Treatment Duration: Jul 12, 2022 Frequency: 1 time per week Estimated Hrs Per Day: .5 hour per day Rehab Potential: Good Safety Risks/Education Teaching Recipient: Patient, Family Teaching Methods: Discussion Response to Teaching: Verbalize Understanding Time Speech Therapy Time In: 09:00 Speech Therapy Time Out: 09:30 Total Billed Time: 30 Billed Treatment Time 1, NICOLETTE COLLINS [facility] ST Jul 12, 2022 11:27
[2022-07-12] MEDS ORDERED: KCL 10 MEQ TAB (MICRO K) PO SCH (11:45)
--- NOTE | 2022-07-12 12:01 | Physical Therapy Daily Note ---
PT Daily Note-Current Subjective Pt. up in recliner, family present. During rx pt. states again today as she did yesterday that she would like to DC b/c she can do all this at home and would be up around moving even more. Family states she is doing better than she was 6 mo ago. Pain Location: No Pain Reported Section J - Health Conditions 1. Rarely or not at all 2. Occasionally 3. Frequently 4. Almost constantly 8. Unable to answer Pain Effect on Sleep: 0 Pain Interference with Therapy: 0 Pain Interference w/Day-to-Day: 0 Mental Status Patient Orientation: Normal For Age Transfers SCALE: Activities may be completed with or without assistive devices. 7-Ztvplldtqs-ljsejtv completes the activity by him/herself with no assistance from a helper. 5-Set-up or Clean-up Assistance-helper sets up or cleans up; patient completes activity. [place] assists only prior to or following the activity. 4-Supervision or Touching Assistance-helper provides verbal cues and/or touching/steadying and/or contact guard assistance as patient completes activity. Assistance may be provided throughout the activity or intermittently. 3-Partial/Moderate Assistance-helper does LESS THAN HALF the effort. [place] lifts, holds or supports trunk or limbs, but provides less than half the effort. 2-Substantial/Maximal Assistance-helper does MORE THAN HALF the effort. [place] lifts or holds trunk or limbs and provides more than half the effort. 6-Pyjqzijwf-otebwi does ALL the effort. Patient does none of the effort to complete the activity. Or, the assistance of 2 or more helpers is required for the patient to complete the activity. If activity was not attempted, code reason: 7-Patient Refused. 9-Not Applicable-not attempted and the patient did not perform the activity before the current illness, exacerbation or injury. 10-Not Attempted due to Environmental Limitations-(lack of equipment, weather restraints, etc.). 88-Not Attempted due to Medical Conditions or Safety Concerns. Roll Left & Right (QC): 6 Sit to Lying (QC): 6 Lying to Sitting/Side of Bed(Q: 6 Sit to Stand (QC): 6 Chair/Vll-ti-Eykco Xfer(QC): 6 Toilet Transfer (QC): 6 Car Transfer (QC): 6 Gait Training Does the Patient Walk?: Yes Walk 10 feet (QC): 6 Walk 50 ft with 2 Turns(QC): 6 Walk 150 ft (QC): 6 Walking 10ft/uneven surface-QC: 6 Gait Persons Needed: 0 Gait Assistive Device: FWW pt. is slow and careful with walker , given time she moves for all tasks carefully with no LOB Stair Training Stair Training: Handrails/: 2 handrails #of Steps: 4 1 Step (curb) (QC): 4 4 Steps (QC): 4 12 Steps (QC): 7 Stairs: Pattern: Step to family present and states pt. never goes in out house without their assistance and presence Balance Picking up an Object (QC): 5 Special Test Comments components of AHMADI and Tinnetti used today with pt. scoring well with use of FWW Exercises Standing: Hip Abduction, Hamstring curls, Heel/toe raises, Marching, Mini squats, Sit to Stand, Side steps Standing Reps: 15 Treatments TRFs, gait, stairs, balance challenges Assessment Current Status: Good Progress pt. stated in yesterdays Rx and todays that she would like to DC SH[place]A. today family observes pts mobility for gait and stairs and concur they think she should go home, thye are contacting a sister to get approval PT Behavioral Technician Goals Behavioral Technician Goals PT Behavioral Technician Goals Time Frame: Aug 17, 2022 Roll Left & Right (QC): 6 Sit to Lying (QC): 6 Lying-Sitting on Side/Bed(QC): 6 Sit to Stand (QC): 6 Chair/Aof-ng-Oxkim Xfer(QC): 6 Toilet Transfer (QC): 4 Car Transfer (QC): 6 Does the Patient Walk: Yes Walk 10 feet (QC): 6 Walk 50ft with 2 Turns (QC): 6 Walk 150 ft (QC): 6 Walking 10ft on Uneven Surface: 6 1 Step (curb) (QC): 4 4 Steps (QC): 4 12 Steps (QC): 4 Picking up an Object (QC): 6 Does the Pt use WC or Scooter?: No Wheel 50 feet with 2 turns (QC: 9 Type: N/A Wheel 150 feet: 9 Type: N/A PT Plan Treatment/Plan Treatment Plan: Continue Plan of Care Treatment Plan: Bed Mobility, Concurrent Therapy, Education, Functional Activity Alfie, Functional Strength, Group Therapy, Gait, Safety, Therapeutic Exercise, Transfers Treatment Duration: Aug 17, 2022 Frequency: At least 5 of 7 days/Wk (IRF) Estimated Hrs Per Day: 1.5 hours per day Patient and/or Family Agrees t: Yes Safety Risks/Education Patient Education: Gait Training, Transfer Techniques, Steps, Reviewed Use of I ce, Disease Process, Safety Issues Teaching Recipient: Patient, Family Teaching Methods: Demonstration, Discussion Response to Teaching: Verbalize Understanding, Return Demonstration Time/GCodes Time In: 1100 Time Out: 1200 Total Billed Treatment Time: 60 Total Billed Treatment 1,GT15m,NM15m,EX15m,FA15m JOSEFINA PATRICK TEARER Jul 12, 2022 12:01
[2022-07-12] MEDS ORDERED: POTA10CA43 PO (12:05)
[2022-07-12] MEDS ORDERED: LEVO750T PO (12:05)
[2022-07-12] MEDS ORDERED: PANT40TA52 PO (12:05)
--- NOTE | 2022-07-12 12:06 | D/C HH Face to Face Order ---
D/C Face to Face Orders Reconcile Patient Problems Problems Reviewed?: Yes Instructions for Patient Via [facility], Patient Instructions/FollowUp: dr steiner in 1 week Physician to follow Patient: rachel Discharge Diet for Home: No Restrictions Patient Problems: debility Patient Data-Allergies,Ht & Wt Patient Allergies: Coded Allergies: fentanyl (Verified Allergy, Intermediate, Rash, 07/08/22) RASH AND CONFUSION hydromorphone (Verified Allergy, Intermediate, 07/08/22) CONFUSION Penicillins (Verified Allergy, Unknown, RASH, 05/09/17) Sulfa (Sulfonamide Antibiotics) (Verified Allergy, Unknown, RASH, 05/09/17) azithromycin (Verified Allergy, Unknown, RASH, 05/09/17) cephalexin (Verified Allergy, Unknown, RASH, 05/09/17) clindamycin (Verified Allergy, Unknown, 07/06/22) naproxen (Verified Adverse Reaction, Unknown, 05/09/17) HEADACHE Height (Feet): 5 Height (Inches): 4.00 Weight (Pounds): 190 Weight (Ounces): 0.0 Home Health Need/Face to Face Date of Face to Face: Jul 12, 2022 Clinical Findings: Generalized weakness and fatigue, Instability, Muscle weakness I have seen Pt pelq-ql-nkbw: Yes Discharged To: Home Diagnosis/Conditions: debility Patient is Homebound due to: [place] fall risk due to instabilty, Muscle weakness Homebound Status Due to the above stated illness, injury or surgical procedure (medical condition or diagnosis) and associated clinical findings, the patient is homebound because of his/her inability to leave home except with aid of a supportive device and/or person AND leaving the home requires a considerable and taxing effort or is medically contraindicated. Pt req the following assistanc: Walker Home Health Nursing Orders Home Health Services Order: Nursing Services, Manager Ship-Evaluate & Treat, Physical Therapy-Evaluate & Treat Certify Stmt I certify that this patient is under my care and that I, a nurse practitioner or a physician; a preschool assistant principal working with me, had a face to face encounter that - meets the physician face to face encounter requirements with this patient as dated. DEONNA STEINER DO Jul 12, 2022 12:06
--- NOTE | 2022-07-12 12:07 | Discharge Summary ---
Diagnosis/Chief Complaint Date of Admission Jul 11, 2022 at 11:10 Date of Discharge Discharge Date: Jul 12, 2022 Discharge Summary Discharge Physical Examination Allergies: Coded Allergies: fentanyl (Verified Allergy, Intermediate, Rash, 07/08/22) RASH AND CONFUSION hydromorphone (Verified Allergy, Intermediate, 07/08/22) CONFUSION Penicillins (Verified Allergy, Unknown, RASH, 05/09/17) Sulfa (Sulfonamide Antibiotics) (Verified Allergy, Unknown, RASH, 05/09/17) azithromycin (Verified Allergy, Unknown, RASH, 05/09/17) cephalexin (Verified Allergy, Unknown, RASH, 05/09/17) clindamycin (Verified Allergy, Unknown, 07/06/22) naproxen (Verified Adverse Reaction, Unknown, 05/09/17) HEADACHE Vitals & I&Os Vital Signs Date Time Temp Pulse Resp B/P (MAP) Pulse Ox O2 Delivery O2 Flow Rate FiO2 07/12/22 09:53 Room Air 07/12/22 07:39 37.3 88 16 136/63 (87) 94 Hospital Course Labs (last 24 hrs) Laboratory Tests 07/12/22 06:00: White Blood Count 9.8, Red Blood Count 3.00L, Hemoglobin 8.3L, Hematocrit 26L, Mean Corpuscular Volume 88, Mean Corpuscular Hemoglobin 28, Mean Corpuscular Hemoglobin Concent 32, Red Cell Distribution Width 15.2H, Platelet Count 45L, Mean Platelet Volume , Immature Granulocyte % (Auto) 6, Neutrophils (%) (Auto) 38L, Lymphocytes (%) (Auto) 21, Monocytes (%) (Auto) 35H, Eosinophils (%) (Auto) 0, Basophils (%) (Auto) 0, Neutrophils # (Auto) 3.7, Lymphocytes # (Auto) 2.0, Monocytes # (Auto) 3.5H, Eosinophils # (Auto) 0.0, Basophils # (Auto) 0.0, Immature Granulocyte # (Auto) 0.6H, Percent Immature Platelet Fraction 29.1H, Sodium Level 141, Potassium Level 3.1L, Chloride Level 108H, Carbon Dioxide Level 22, Anion Gap 11, Blood Urea Nitrogen 12, Creatinine 0.95, Estimat Glomerular Filtration Rate 59, BUN/Creatinine Ratio 13, Glucose Level 93, Calcium Level 8.0L, Corrected Calcium 8.7, Total Bilirubin 0.5, Aspartate Amino Transf (AST/SGOT) 49H, Alanine Aminotransferase (ALT/SGPT) 32, Alkaline Phosphatase 34L, Total Protein 5.9L, Albumin 3.1L Pending Labs Laboratory Tests 07/12/22 06:00: White Blood Count 9.8, Red Blood Count 3.00, Hemoglobin 8.3, Hematocrit 26, Mean Corpuscular Volume 88, Mean Corpuscular Hemoglobin 28, Mean Corpuscular Hemoglobin Concent 32, Red Cell Distribution Width 15.2, Platelet Count 45, Mean Platelet Volume , Immature Granulocyte % (Auto) 6, Neutrophils (%) (Auto) 38, Lymphocytes (%) (Auto) 21, Monocytes (%) (Auto) 35, Eosinophils (%) (Auto) 0, Basophils (%) (Auto) 0, Neutrophils # (Auto) 3.7, Lymphocytes # (Auto) 2.0, Monocytes # (Auto) 3.5, Eosinophils # (Auto) 0.0, Basophils # (Auto) 0.0, Immature Granulocyte # (Auto) 0.6, Percent Immature Platelet Fraction 29.1, Sodium Level 141, Potassium Level 3.1, Chloride Level 108, Carbon Dioxide Level 22, Anion Gap 11, Blood Urea Nitrogen 12, Creatinine 0.95, Estimat Glomerular Filtration Rate 59, BUN/Creatinine Ratio 13, Glucose Level 93, Calcium Level 8.0, Corrected Calcium 8.7, Total Bilirubin 0.5, Aspartate Amino Transf (AST/SGOT) 49, Alanine Aminotransferase (ALT/SGPT) 32, Alkaline Phosphatase 34, Total Protein 5.9, Albumin 3.1 Discharge Home Medications: Active Scripts Active Potassium Chloride 10 Meq Capsule.er 10 Meq PO DAILY Levofloxacin 750 Mg Tablet 750 Mg PO Q48H@1100 Pantoprazole Sodium 40 Mg Tablet.dr 40 Mg PO BID Reported Cranberry (Cranberry Fruit) 400 Mg Tablet 400 Mg PO 1300 Zinc (Zinc Amino Acid Chelate) 50 Mg Tablet 50 Mg PO 1300 Probiotic (Lactobacillus Combination No.4) 3 Billion Cell Capsule 1 Each PO DAILY Vitamin D3 (Cholecalciferol (Vitamin D3)) 50 Mcg (2000 Unit) Tablet 50 Mcg PO 1300 Tylenol Extra Strength (Acetaminophen) 500 Mg Tablet 500-1,000 Mg PO Q8H PRN Alprazolam 0.5 Mg Tablet 0.25-0.5 Mg PO TID PRN Neurontin (Gabapentin) 300 Mg Capsule 300 Mg PO TID Prednisone 5 Mg Tablet 5 Mg PO 1300 Fluoxetine HCl 20 Mg Capsule 20 Mg PO 1300 Tramadol HCl 50 Mg Tablet 50 Mg PO BID PRN Euthyrox (Levothyroxine Sodium) 100 Mcg Tablet 100 Mcg PO DAILY Myrbetriq (Mirabegron) 50 Mg Tab.er.24h 50 Mg PO HS Co Q-10 (Ubidecarenone) 100 Mg Capsule 100 Mg PO DAILY Metoprolol Succinate 25 Mg Tab.er.24h 25 Mg PO DAILY Losartan Potassium 100 Mg Tablet 100 Mg PO DAILY Instructions to patient/family Please see electronic discharge instructions given to patient. Diagnosis/Problems Diagnosis/Problems (1) Encephalopathy Clinical Quality Measures DVT/VTE Risk/Contraindication: Contraindications-Pharm: Other *list below* Other: low plts DEONNA STEINER DO Jul 12, 2022 12:07
--- NOTE | 2022-07-12 12:37 | Discharge Summary ---
Diagnosis/Chief Complaint Date of Admission Jul 11, 2022 at 11:10 Date of Discharge Discharge Date: Jul 12, 2022 Discharge Diagnosis Assessment and Plan: Encephalopathy/Acute delirium secondary to acute medical illness refractory N/V with gastritis of HH Acute systemic allergic rash secondary to medication-resolving Leukocytosis secondary to steroid administration Decadron to help N/V on admit now resolved and DC med UTI on Levaquin Proteus Anemia acute on chronic 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 Newsome consultation Continue to monitor labs Monitor hemoglobin-transfuse if necessary PICC PT OT CC: Encephalopathy HPI: This is an 82yoWF clinic patient of mine who had a very complicated hospital course due to severe gastritis of the HH and N/V unable to tolerate PO but delirium occurred and became severe complicated by her daughter's refusal of multiple standard of care medications to help resolve her acute issues even though multiple long conversations were initiated to help reassure her daughter. Patient ultimately had improvement in all of her issues but still remained frightened and weak and the decision was made to admit to IRF. Currently she is doing much better and wants to work on regaining independence. Med-surg DC summary: 82 year old white female patient presented to ER (07-06-2022) for generalized abdominal pain, nausea, and vomiting with a history of GERD and esophageal stricture. Once in the ER she had an abdominal CT done which showed a hiatal hernia and possible volvulus. She was subsequently admitted, to receive IVF, IV PPI, and antiemetics. After her first dose of Zofran she began having an intense systemic pruritic rash. The next day she began having confusion and episodes of delirium. Her daughter was at her bedside throughout her whole admission and began worrying about her mothers delirium and mental decline. Patient was then o rdered to be given Haldol, Ativan, along with an EGD by Dr. Newsome. The daughter declined all of these treatments because she didnt want to worsen her mothers delirium. The EGD was then scheduled to be done outpatient. Patient then developed a UTI and is being treated with Levofloxacin, her potassium began declining during her stay as well and was replaced. Patient continued with worsening delirium and insomnia. Patient was ordered to have a CT head, chest x- ray, and abdominal x-ray on 07-09-2022. All the imaging came back negative, with no acute abnormalities except for aforementioned hiatal hernia. After furthering decline over the night of 07-09-2022 the daughter decided to have Ativan and Haldol administered. Following administration of Ativan and Haldol patient was finally able to sleep. She ended up sleeping from midnight to 7 A.M. The following morning patients delirium was improved and was able to speak in coherent sentences. Her mental status has been improving ever since. Today (07-11-2022) she was able to communicate regarding her current status, but does not remember the prior 24 hours during her intense episodes of delirium. She has no complaints of pain, nausea, or vomiting this morning. She was able to participate in PT and OT yesterday but was to weak to shower. Patient has improved enough to be moved to rehab floor. Both patient and family are not excited about being moved to rehab floor, both were hoping to be able and leave hospital today. Patients son was in the room today and wanted clarification regarding the timeline for being in rehab. Discharge Summary Discharge Physical Examination Allergies: Coded Allergies: fentanyl (Verified Allergy, Intermediate, Rash, 07/08/22) RASH AND CONFUSION hydromorphone (Verified Allergy, Intermediate, 07/08/22) CONFUSION Penicillins (Verified Allergy, Unknown, RASH, 05/09/17) Sulfa (Sulfonamide Antibiotics) (Verified Allergy, Unknown, RASH, 05/09/17) azithromycin (Verified Allergy, Unknown, RASH, 05/09/17) cephalexin (Verified Allergy, Unknown, RASH, 05/09/17) clindamycin (Verified Allergy, Unknown, 07/06/22) naproxen (Verified Adverse Reaction, Unknown, 05/09/17) HEADACHE Vitals & I&Os Vital Signs Date Time Temp Pulse Resp B/P (MAP) Pulse Ox O2 Delivery O2 Flow Rate FiO2 07/12/22 15:31 37.3 88 16 136/63 94 Room Air Hospital Course Was the Problem List Reviewed?: Yes Assessment and Plan: Encephalopathy/Acute delirium secondary to acute medical illness refractory N/V with gastritis of HH Acute systemic allergic rash secondary to medication-resolving Leukocytosis secondary to steroid administration Decadron to help N/V on admit now resolved and DC med UTI on Levaquin Proteus Anemia acute on chronic 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 Newsome consultation Continue to monitor labs Monitor hemoglobin-transfuse if necessary PICC PT OT CC: Encephalopathy HPI: This is an 82yoWF clinic patient of mine who had a very complicated hospital course due to severe gastritis of the HH and N/V unable to tolerate PO but delirium occurred and became severe complicated by her daughter's refusal of multiple standard of care medications to help resolve her acute issues even though multiple long conversations were initiated to help reassure her daughter. Patient ultimately had improvement in all of her issues but still remained frightened and weak and the decision was made to admit to IRF. Currently she is doing much better and wants to work on regaining independence. Med-surg DC summary: 82 year old white female patient presented to ER (07-06-2022) for generalized abdominal pain, nausea, and vomiting with a history of GERD and esophageal stricture. Once in the ER she had an abdominal CT done which showed a hiatal hernia and possible volvulus. She was subsequently admitted, to receive IVF, IV PPI, and antiemetics. After her first dose of Zofran she began having an intense systemic pruritic rash. The next day she began having confusion and episodes of delirium. Her daughter was at her bedside throughout her whole admission and began worrying about her mothers delirium and mental decline. Patient was then ordered to be given Haldol, Ativan, along with an EGD by Dr. Newsome. The daughter declined all of these treatments because she didnt want to worsen her mothers delirium. The EGD was then scheduled to be done outpatient. Patient then developed a UTI and is being treated with Levofloxacin, her potassium began declining during her stay as well and was replaced. Patient continued with wors ening delirium and insomnia. Patient was ordered to have a CT head, chest x-ray, and abdominal x-ray on 07-09-2022. All the imaging came back negative, with no acute abnormalities except for aforementioned hiatal hernia. After furthering decline over the night of 07-09-2022 the daughter decided to have Ativan and Haldol administered. Following administration of Ativan and Haldol patient was finally able to sleep. She ended up sleeping from midnight to 7 A.M. The following morning patients delirium was improved and was able to speak in coherent sentences. Her mental status has been improving ever since. Today (07-11-2022) she was able to communicate regarding her current status, but does not remember the prior 24 hours during her intense episodes of delirium. She has no complaints of pain, nausea, or vomiting this morning. She was able to participate in PT and OT yesterday but was to weak to shower. Patient has improved enough to be moved to rehab floor. Both patient and family are not excited about being moved to rehab floor, both were hoping to be able and leave hospital today. Patients son was in the room today and wanted clarification regarding the timeline for being in rehab. Patient decided she wanted to go home to recover rather than stay in IRF and she was DC on HH. Labs (last 24 hrs) Laboratory Tests 07/12/22 06:00: White Blood Count 9.8, Red Blood Count 3.00L, Hemoglobin 8.3L, Hematocrit 26L, Mean Corpuscular Volume 88, Mean Corpuscular Hemoglobin 28, Mean Corpuscular Hemoglobin Concent 32, Red Cell Distribution Width 15.2H, Platelet Count 45L, Mean Platelet Volume , Immature Granulocyte % (Auto) 6, Neutrophils (%) (Auto) 38L, Lymphocytes (%) (Auto) 21, Monocytes (%) (Auto) 35H, Eosinophils (%) (Auto) 0, Basophils (%) (Auto) 0, Neutrophils # (Auto) 3.7, Lymphocytes # (Auto) 2.0, Monocytes # (Auto) 3.5H, Eosinophils # (Auto) 0.0, Basophils # (Auto) 0.0, Immature Granulocyte # (Auto) 0.6H, Percent Immature Platelet Fraction 29.1H, Sodium Level 141, Potassium Level 3.1L, Chloride Level 108H, Carbon Dioxide Level 22, Anion Gap 11, Blood Urea Nitrogen 12, Creatinine 0.95, Estimat Glomerular Filtration Rate 59, BUN/Creatinine Ratio 13, Glucose Level 93, Calcium Level 8.0L, Corrected Calcium 8.7, Total Bilirubin 0.5, Aspartate Amino Transf (AST/SGOT) 49H, Alanine Aminotransferase (ALT/SGPT) 32, Alkaline Phosphatase 34L, Total Protein 5.9L, Albumin 3.1L Pending Labs Laboratory Tests 07/12/22 06:00: White Blood Count 9.8, Red Blood Count 3.00, Hemoglobin 8.3, Hematocrit 26, Mean Corpuscular Volume 88, Mean Corpuscular Hemoglobin 28, Mean Corpuscular Hemoglobin Concent 32, Red Cell Distribution Width 15.2, Platelet Count 45, Mean Platelet Volume , Immature Granulocyte % (Auto) 6, Neutrophils (%) (Auto) 38, Lymphocytes (%) (Auto) 21, Monocytes (%) (Auto) 35, Eosinophils (%) (Auto) 0, Basophils (%) (Auto) 0, Neutrophils # (Auto) 3.7, Lymphocytes # (Auto) 2.0, Monocytes # (Auto) 3.5, Eosinophils # (Auto) 0.0, Basophils # (Auto) 0.0, Immature Granulocyte # (Auto) 0.6, Percent Immature Platelet Fraction 29.1, Sodium Level 141, Potassium Level 3.1, Chloride Level 108, Carbon Dioxide Level 22, Anion Gap 11, Blood Urea Nitrogen 12, Creatinine 0.95, Estimat Glomerular Filtration Rate 59, BUN/Creatinine Ratio 13, Glucose Level 93, Calcium Level 8.0, Corrected Calcium 8.7, Total Bilirubin 0.5, Aspartate Amino Transf (AST/SGOT) 49, Alanine Aminotransferase (ALT/SGPT) 32, Alkaline Phosphatase 34, Total Protein 5.9, Albumin 3.1 Discharge Home Medications: Active Scripts Active Levofloxacin 750 Mg Tablet 750 Mg PO Q48H@1100 Pantoprazole Sodium 40 Mg Tablet.dr 40 Mg PO BID Reported Cranberry (Cranberry Fruit) 400 Mg Tablet 400 Mg PO 1300 Zinc (Zinc Amino Acid Chelate) 50 Mg Tablet 50 Mg PO 1300 Probiotic (Lactobacillus Combination No.4) 3 Billion Cell Capsule 1 Each PO DAILY Vitamin D3 (Cholecalciferol (Vitamin D3)) 50 Mcg (2000 Unit) Tablet 50 Mcg PO 1300 Tylenol Extra Strength (Acetaminophen) 500 Mg Tablet 500-1,000 Mg PO Q8H PRN Alprazolam 0.5 Mg Tablet 0.25-0.5 Mg PO TID PRN Neurontin (Gabapentin) 300 Mg Capsule 300 Mg PO TID Prednisone 5 Mg Tablet 5 Mg PO 1300 Fluoxetine HCl 20 Mg Capsule 20 Mg PO 1300 Tramadol HCl 50 Mg Tablet 50 Mg PO BID PRN Euthyrox (Levothyroxine Sodium) 100 Mcg Tablet 100 Mcg PO DAILY Myrbetriq (Mirabegron) 50 Mg Tab.er.24h 50 Mg PO HS Co Q-10 (Ubidecarenone) 100 Mg Capsule 100 Mg PO DAILY Metoprolol Succinate 25 Mg Tab.er.24h 25 Mg PO DAILY Losartan Potassium 100 Mg Tablet 100 Mg PO DAILY Instructions to patient/family Please see electronic discharge instructions given to patient. Diagnosis/Problems Diagnosis/Problems (1) Encephalopathy Clinical Quality Measures DVT/VTE Risk/Contraindication: Contraindications-Pharm: Other *list below* Other: low plts DEONNA STEINER DO Jul 12, 2022 12:37
--- NOTE | 2022-07-12 13:00 | Therapy Team Discharge Summary ---
Therapy Discharge Summary Discharge Recommendations Date of Discharge Physical Therapy Patient came to rehab with encephalopathy. Upon evaluation patient performed rolling and supine <-> sit with min/mod assist, sit <-> stand and transfers min/mod assist, car transfer min/mod assist, ambulated 150' with a rolling w alker with min/mod assist (including 50' with at least 2 turns of 90 degrees and 10' over an uneven surface), and went up and down 1 step using a rolling walker with min/mod assist. Patient has been performing bed mobility and transfer training, balance and endurance training, functional strengthening, stair training, gait training, and education. Patient has only been here 2 days but has already met her snf goals except for picking an object off of the floor. Now, patient performs rolling and supine <-> sit with independence, sit <-> stand and transfers independent, car transfer independent, ambulates at least 150' with a rolling walker with independence (including 50' with at least 2 turns of 90 degrees and 10' over an uneven surface), went up and down 4 steps using 2 handrails with CGA, and picked up an object from the floor with setup. Patient is being discharged from this facility today and will be discharged from PT at this time. Roll Left to Right (QC): 6 Sit to Lying (QC): 6 Lying to Sitting/Side of Bed(Q: 6 Sit to Stand (QC): 6 Chair/Wgx-ha-Lpxpm Xfer(QC): 6 Toilet Transfer (QC): 6 Car Transfer (QC): 6 Does the Patient Walk: Yes Mode of Locomotion: Walk Anticipated Mode of Locomotion: Walk Walk 10 feet (QC): 6 Walk 50 ft with 2 Turns(QC): 6 Walk 150 ft (QC): 6 Walking 10ft on uneven surface: 6 Distance: 150' x 2 Gait Assistive Device: FWW Wheel 50 ft with 2 turns (QC): 9 Wheel 150 ft (QC): 9 #of Steps: 4 1 Step (curb) (QC): 4 4 Steps (QC): 4 12 Steps (QC): 7 Balance Sitting Static: Normal Balance Sitting Dynamic: Normal Balance-Standing Static: Fair Picking up an Object (QC): 5 Occupational Therapy Decreased Activ Tolerance, Decreased Safety Aware, Decreased UE Strength Eating (QC): 6 (Per clinical judgement) Oral Hygiene (QC): 6 Upper Body Dressing (QC): 5 Lower Body Dressing (QC): 5 On/Off Footwear (QC): 3 (Mod A) Toileting Hygiene (QC): 6 PT Half-Way Goals Half-Way Goals PT Farm General Manager Goals Time Frame: Aug 17, 2022 Scoring Section J - Health Conditions 1. Rarely or not at all 2. Occasionally 3. Frequently 4. Almost constantly 8. Unable to answer Pain Effect on Sleep: 1 Pain Interference with Therapy: 1 Pain Interference w/Day-to-Day: 1 Roll Left to Right (QC): 6 Sit to Lying (QC): 6 Lying-Sitting on Side/Bed(QC): 6 Sit to Stand (QC): 6 Chair/Suk-ye-Dqggu Xfer(QC): 6 Car Transfer (QC): 6 Does the Patient Walk: Yes Walk 10 feet (QC): 6 Walk 10ft-Uneven Surface(QC): 6 Walk 50ft with 2 Turns (QC): 6 Walk 150 ft (QC): 6 Gait Assistive Device: FWW Does the Pt use WC or Scooter?: No Wheel 50 feet with 2 turns (QC: 9 # of Steps: 12 1 Step (curb) (QC): 4 4 Steps (QC): 4 12 Steps (QC): 4 Stairs Level Of Assist: 4 Picking up an Object (QC): 6 OT Farm General Manager Goals Farm General Manager Goals Time Frame: Aug 09, 2022 Acute change in mental status: 0 Inattention: 0 Disorganized thinkin Altered level of consciousness: 0 Eating (QC): 6 Oral Hygiene (QC): 6 Toileting Hygiene (QC): 6 Shower/Bathe Self (QC): 6 Upper Body Dressing (QC): 6 Lower Body Dressing (QC): 6 On/Off Footwear (QC): 6 Additional Goals: 1-Demonstrate ADL Tasks, 2-Verbalize Understanding, 3-ImproveStrength/Alfie 1=Demonstrate adherence to instructed precautions during ADL tasks. 2=Patient will verbalize/demonstrate understanding of assistive devices/modifications for ADL. 3=Patient will improve strength/tolerance for activity to enable patient to perform ADL's. NEREIDA MARC PT Jul 12, 2022 13:00
[2022-07-12] MEDS: FLUoxetine HCL 20 MG (PROzac) CAP PO SCH (13:48)
--- NOTE | 2022-07-12 14:56 | Therapy Team Discharge Summary ---
Therapy Discharge Summary Discharge Recommendations Date of Discharge Physical Therapy Roll Left to Right (QC): 6 Sit to Lying (QC): 6 Lying to Sitting/Side of Bed(Q: 6 Sit to Stand (QC): 6 Chair/Mlx-mz-Glyua Xfer(QC): 6 Toilet Transfer (QC): 6 Car Transfer (QC): 6 Does the Patient Walk: Yes Mode of Locomotion: Walk Anticipated Mode of Locomotion: Walk Walk 10 feet (QC): 6 Walk 50 ft with 2 Turns(QC): 6 Walk 150 ft (QC): 6 Walking 10ft on uneven surface: 6 Distance: 150' x 2 Gait Assistive Device: FWW Wheel 50 ft with 2 turns (QC): 9 Wheel 150 ft (QC): 9 #of Steps: 4 1 Step (curb) (QC): 4 4 Steps (QC): 4 12 Steps (QC): 7 Balance Sitting Static: Normal Balance Sitting Dynamic: Normal Balance-Standing Static: Fair Picking up an Object (QC): 5 Occupational Therapy Pt admitted to ARU 07/11/22 with encephalopathy. At [facility], pt was independent with ADLS and functional mobility using FWW. Upon initial evaluation, pt required set up with eating, SBA oral care, min A UE dressing, showering, toileting and LE d ressing, max A with footwear. Pt made progress towards goals, but did not attain all due to short stay on rehab. Pt discharging 07/12/22 to home, d/c from OT Decreased Activ Tolerance, Decreased Safety Aware, Decreased UE Strength Eating (QC): 6 (Per clinical judgement) Oral Hygiene (QC): 6 Shower/Bathe Self (QC): 3 (min A) Upper Body Dressing (QC): 5 Lower Body Dressing (QC): 5 On/Off Footwear (QC): 3 (Mod A) Toileting Hygiene (QC): 6 PT Senior Living Goals Day Camp Unit Leader Goals PT Day Camp Unit Leader Goals Time Frame: Aug 17, 2022 Scoring Section J - Health Conditions 1. Rarely or not at all 2. Occasionally 3. Frequently 4. Almost constantly 8. Unable to answer Pain Effect on Sleep: 1 Pain Interference with Therapy: 1 Pain Interference w/Day-to-Day: 1 Roll Left to Right (QC): 6 Sit to Lying (QC): 6 Lying-Sitting on Side/Bed(QC): 6 Sit to Stand (QC): 6 Chair/Sfq-zx-Gatrg Xfer(QC): 6 Car Transfer (QC): 6 Does the Patient Walk: Yes Walk 10 feet (QC): 6 Walk 10ft-Uneven Surface(QC): 6 Walk 50ft with 2 Turns (QC): 6 Walk 150 ft (QC): 6 Gait Assistive Device: FWW Does the Pt use WC or Scooter?: No Wheel 50 feet with 2 turns (QC: 9 # of Steps: 12 1 Step (curb) (QC): 4 4 Steps (QC): 4 12 Steps (QC): 4 Stairs Level Of Assist: 4 Picking up an Object (QC): 6 OT Day Camp Unit Leader Goals Senior Living Goals Time Frame: Aug 09, 2022 Acute change in mental status: 0 Inattention: 0 Disorganized thinkin Altered level of consciousness: 0 Eating (QC): 6 (met) Oral Hygiene (QC): 6 (met) Toileting Hygiene (QC): 6 (met) Shower/Bathe Self (QC): 6 (not met) Upper Body Dressing (QC): 6 (not met) Lower Body Dressing (QC): 6 (not met) On/Off Footwear (QC): 6 (not met) Additional Goals: 1-Demonstrate ADL Tasks, 2-Verbalize Understanding, 3- ImproveStrength/Alfie 1=Demonstrate adherence to instructed precautions during ADL tasks. 2=Patient will verbalize/demonstrate understanding of assistive devices/modifications for ADL. 3=Patient will improve strength/tolerance for activity to enable patient to perform ADL's. DOROTHY RIVERA OT Jul 12, 2022 14:56
[2022-07-12 15:31] VITALS: BP 136/63
== END 2022-07-12 15:10 | disposition home health service (06) | DRG 71 ==
PROVIDERS: ADMIT Internal Medicine; ATTEND Internal Medicine
DX: G93.49 Other encephalopathy (principal); N39.0 Urinary tract infection, site not specified; I12.9 Hypertensive chronic kidney disease with stage 1 through stage 4 chronic kidney disease, or unspecified chronic kidney disease; N18.9 Chronic kidney disease, unspecified; E78.00 Pure hypercholesterolemia, unspecified; G62.9 Polyneuropathy, unspecified; K21.9 Gastro-esophageal reflux disease without esophagitis; H54.7 Unspecified visual loss; H91.90 Unspecified hearing loss, unspecified ear; F41.9 Anxiety disorder, unspecified; F32.A Depression, unspecified; L29.8 Other pruritus; B96.4 Proteus (mirabilis) (morganii) as the cause of diseases classified elsewhere; D64.9 Anemia, unspecified; M31.6 Other giant cell arteritis; D46.9 Myelodysplastic syndrome, unspecified; R01.1 Cardiac murmur, unspecified; Z85.850 Personal history of malignant neoplasm of thyroid; Z85.42 Personal history of malignant neoplasm of other parts of uterus; Z79.52 Long term (current) use of systemic steroids; Z88.1 Allergy status to other antibiotic agents; Z88.5 Allergy status to narcotic agent; Z88.0 Allergy status to penicillin; Z88.2 Allergy status to sulfonamides; Z88.8 Allergy status to other drugs, medicaments and biological substances; Z88.6 Allergy status to analgesic agent
CPT/HCPCS: 36415; 80053; 85025

== ENCOUNTER → 2022-09-16 | Outpatient (CLI) | payer MEDICARE ==
[~2022-09-16] MED LIST changes: +LEVO750T PO; +POTA10CA43 PO
== END ==
LOC: CARD 12:57
PROVIDERS: ATTEND Internal Medicine Cardiovascular Disease
DX: I08.2 Rheumatic disorders of both aortic and tricuspid valves (principal); I10 Essential (primary) hypertension; I25.10 Atherosclerotic heart disease of native coronary artery without angina pectoris
CPT/HCPCS: 93306